=== PATIENT | male | born 1955 | race Caucasian/White ===

== ENCOUNTER → 2017-12-10 09:10 | Outpatient (REF) | payer MEDICARE, SELFPAY ==
[2017-12-10 18:53] LABS: Alanine Aminotransferase 24 U/L (12-78); Albumin Level 3.8 gm/dL (3.4-5.0); Albumin/Globulin Ratio 1.2 (1.1-1.8); Alkaline Phosphatase 108 U/L (46-116); Anion Gap 11.7 mEq/L (5-15); Bilirubin,Total 0.7 mg/dL (0.2-1.0); Blood Urea Nitrogen 14 mg/dL (7-18); Calcium 9.2 mg/dL (8.5-10.1); Carbon Dioxide 29 mmol/L (21.0-32.0); Chloride 103 mmol/L (98-107); Chol/HDL Ratio 2.4 (1-3.5); Cholesterol 193 mg/dL (140-200); Creatinine,Serum 1.02 mg/dL (0.70-1.30); Estimated Glomerular Filt Rate 74 ml/min (>60); GFR (African American) 89 ML/MIN (>60); Globulin 3.1 gm/dl (1.3-3.2); Glucose 118 mg/dL (74-106); HDL Cholesterol 82 mg/dL (27-67); LDL Cholesterol 93 mg/dL (0-130); Sodium 139 mmol/L (136-145); T4 (Thyroxine) 6.3 ug/dl (4.7-13.3); Thyroid Stimulating Hormone 3.56 uIU/ml (0.358-3.740); Total Protein,Serum 6.9 gm/dL (6.4-8.2); Triglycerides 92 mg/dL (30-200); VLDL Cholesterol 18 mg/dL (0-40)
[2017-12-10 18:57] LABS: Potassium 4.7 mmoL/L (3.5-5.1)
[2017-12-10 18:58] LABS: Aspartate Amino Transferase 23 U/L (15-37)
[2017-12-10 20:09] LABS: Basophils # 0.1 K/mm3 (0-0.2); Basophils % 0.8 % (0.1-2.0); Eosinophils % 0.7 % (0.1-12.0); Hematocrit 52.4 % (42.0-52.0); Hemoglobin 17.2 g/dL (14.1-18.0); Lymphocytes # 1.5 K/mm3 (0.7-4.5); Lymphocytes % 22.3 K/mm3 (10-50); Mean Corpuscular HGB Conc 32.8 g/dL (31.8-35.4); Mean Corpuscular Hemoglobin 33.8 pg (27.0-31.2); Mean Corpuscular Volume 103.2 fl (80-94); Mean Platelet Volume 9.6 fl (7.4-10.4); Monocytes # 0.5 K/mm3 (0.1-1.0); Monocytes % 7.9 % (1.7-9.3); Neutrophils # 4.6 K/mm3 (1.8-7.8); Neutrophils % 68.4 % (37.0-80.0); Platelet Count 239 K/mm3 (142-424); Red Blood Count 5.08 M/mm3 (4.60-6.20); White Blood Count 6.7 K/mm3 (4.8-10.8)
[2017-12-12 15:47] LABS: PSA, Free 0.66 ng/mL; Prostate Specific Ag 9.4 ng/mL (0.0-4.0)
== END ==
LOC: LAB 09:10
PROVIDERS: Visit Provider Physician Assistant
DX: I10 Essential (primary) hypertension (principal)
CPT/HCPCS: 80053; 80061; 84153; 84154; 84436; 84443; 85025

== ENCOUNTER → 2018-09-25 14:29 | Outpatient (CLI) | payer MEDICARE, SELFPAY ==
[2018-09-25 14:41] LABS: Basophils % 0.4 % (0.1-2.0); Eosinophils % 0.6 % (0.1-12.0); Hemoglobin 15.9 g/dL (14.1-18.0); Lymphocytes # 1.7 K/mm3 (0.7-4.5); Lymphocytes % 28.6 % (10-50); Mean Corpuscular HGB Conc 32.6 g/dL (31.8-35.4); Mean Corpuscular Volume 101.4 fl (80-94); Mean Platelet Volume 7.9 fl (7.4-10.4); Monocytes # 0.4 K/mm3 (0.1-1.0); Monocytes % 7.5 % (1.7-9.3); Neutrophils # 3.6 K/mm3 (1.8-7.8); Neutrophils % 62.9 % (37.0-80.0); Platelet Count 210 K/mm3 (142-424); Red Blood Count 4.83 M/mm3 (4.60-6.20); Red Cell Distribution Width 12.7 % (11.5-17.5); White Blood Count 5.8 K/mm3 (4.8-10.8)
[2018-09-25 14:56] LABS: Alanine Aminotransferase 25 U/L (12-78); Albumin/Globulin Ratio 1.3 (1.1-1.8); Alkaline Phosphatase 116 U/L (46-116); Anion Gap 13.3 mEq/L (5-15); Aspartate Amino Transferase 20 U/L (15-37); Bilirubin,Total 0.9 mg/dL (0.2-1.0); Blood Urea Nitrogen 9 mg/dL (7-18); Calcium 8.9 mg/dL (8.5-10.1); Carbon Dioxide 29 mmol/L (21.0-32.0); Chloride 103 mmol/L (98-107); Creatinine,Serum 0.84 mg/dL (0.70-1.30); Estimated Glomerular Filt Rate 92 ml/min (>60); Free T4 (Free Thyroxine) 0.89 ng/dl (0.76-1.46); GFR (African American) 111 ML/MIN (>60); Glucose 112 mg/dL (74-106); Potassium 4.3 mmoL/L (3.5-5.1); Sodium 141 mmol/L (136-145); Thyroid Stimulating Hormone 1.86 uIU/ml (0.358-3.740)
[2018-09-25 16:06] LABS: Erythrocyte Sedimentation Rate 3 mm/hr (0-20)
== END ==
PROVIDERS: Visit Provider Emergency Medicine
DX: E78.5 Hyperlipidemia, unspecified (principal); I25.10 Atherosclerotic heart disease of native coronary artery without angina pectoris
CPT/HCPCS: 80053; 84439; 84443; 85025; 85651

== ENCOUNTER → 2018-10-25 13:14 | Outpatient (CLI) | payer MEDICARE, SELFPAY ==
[2018-10-25 14:25] LABS: Amphetamine/Metha Screen,Urine Negative ng/mL (<1000); Barbiturates Screen,Urine Negative ng/mL (<200); Benzodiazepines Screen,Urine Negative ng/mL (<200); Cannabinoid Screen,Urine Negative ng/mL (<50); Cocaine Screen,Urine Negative ng/mL (<300); Methadone Screen,Urine Negative ng/mL (<300); Opiate Screen,Urine Positive ng/mL (<300); Phencyclidine Screen,Urine Negative ng/mL (<25)
== END ==
PROVIDERS: Visit Provider Emergency Medicine
DX: M54.5 Low back pain (principal)
CPT/HCPCS: 80305

== ENCOUNTER → 2020-01-13 10:47 | Outpatient (CLI) | payer MEDICARE, SELFPAY ==
--- NOTE | 2020-01-13 10:52 | XR_ITS ---
PROCEDURE: XR CHEST 2V CLINICAL HISTORY: Left chest mass COMPARISON: CXR1 CHEST-PORTABLE from 04/11/2013 FINDINGS: The cardiomediastinal silhouette and pulmonary vascularity are within normal limits. There is hyperinflation with attenuation of the peripheral pulmonary vessels consistent with COPD. There is blunting of the CP angles on both sides there is an 8 mm nodular opacity in the left infrahilar region, 9 mm nodular density in the retrocardiac region on the left, 5 mm nodular opacity in the left lower lung zone laterally, and a possible 6 mm nodule in the right perihilar region. No acute bony abnormalities. IMPRESSION: At least 4 left-sided indeterminate pulmonary nodules. Consider chest CT for further evaluation. Dictated by: Med Jackson MD 01/13/2020 11:13 Electronically signed by Med Jackson MD in [place] 01/13/2020 11:13
--- NOTE | 2020-01-13 10:52 | XR_ITS ---
PROCEDURE: XR CLAVICLE LT CLINICAL INDICATION: Left chest mass Mass on left clavicle COMPARISON: No exams were available for comparison FINDINGS: No fracture or dislocation. No lytic or blastic change. There is normal mineralization. There are mild osteoarthritic changes the acromioclavicular joint with minimal hypertrophy. Minimal osteoarthritis also noted at the glenohumeral joint with small subchondral cyst of the humeral head 7 mm. The medial aspect of the clavicle at the sternoclavicular joint is not well demonstrated on these images. Other findings:None. IMPRESSION: Mild osteoarthritic changes of the AC joint and glenohumeral joint. If there is indeed a palpable mass then, CT or MRI may provide further evaluation Dictated by: Med Jackson MD 01/13/2020 11:10 Electronically signed by Med Jackson MD in [place] 01/13/2020 11:10
== END ==
PROVIDERS: PCP Emergency Medicine; Visit Provider Physician Assistant
DX: R22.2 Localized swelling, mass and lump, trunk (principal)
CPT/HCPCS: 71046; 73000

== ENCOUNTER → 2020-01-22 09:24 | Outpatient (CLI) | payer MEDICARE, SELFPAY ==
--- NOTE | 2020-01-22 09:24 | CT_ITS ---
PROCEDURE: CT CHEST WO CON CLINICAL INDICATION: indeterminate pulm. nodules. Palpable mass clavicl Palpable mass of the left clavicle Painful left clavicular palpable mass, abnormal chest x-ray, pulmonary nodules COMPARISON: XR CHEST 2V from 01/13/2020 XR CLAVICLE LT from 01/13/2020 TECHNIQUE: Axial images obtained with sagittal and coronal reformats. All CT scans at the facility use one or more dose reduction, viz: automated exposure control, ma/kV adjustment per patient size (including targeted exams where dose is matched to indication, i.e. head), or iterative reconstruction technique. FINDINGS: HEART AND MEDIASTINAL STRUCTURES: No mediastinal or hilar mass or adenopathy. There are coronary artery calcifications. There is normal heart size and there is minimal thickening of the pericardium anteriorly. There is mild ectasia of the ascending aorta measuring up to 4.2 cm. The LUNGS AND PLEURAL SPACES: Centrilobular emphysema with COPD changes. There are multiple calcified granulomas. These correspond to the nodular densities noted on the radiograph. There is an 8 mm subpleural nodular opacity in the left lower lobe laterally. This is noncalcified. BONY STRUCTURES: A BB is placed in the area of palpable concern overlying the left clavicle medially. There is some prominence of the soft tissues at this area which may be due to pannus formation. No bony erosive or destructive changes evident. No bony mass. This has a somewhat similar appearance on both sides but is more prominent on the left. There are degenerative changes of the thoracic spine UPPER ABDOMEN: There is an infrarenal abdominal aortic aneurysm. This is incompletely imaged but measures up to 4.6 cm transverse. Incidental note also made of bilateral renal hypodensities which may be due to cyst and a 3 mm nonobstructing stone in the lower pole of the left kidney. The gallbladder wall is slightly thickened. There is a 9 mm hypodensity in the right hepatic lobe anteriorly which may be due to a hepatic cyst. ADDITIONAL FINDINGS: No other significant abnormalities. IMPRESSION: 1. Palpable abnormality over the medial aspect of the left clavicle corresponds to the head of the left clavicle as well as some suspected mild pannus formation. No bony destructive lesion or lytic process evident. 2. Mild dilatation of the ascending aorta at 4.2 cm with coronary artery calcifications noted. 3. Multiple calcified pulmonary nodules corresponding to the radiographic abnormalities along with a noncalcified 8 mm subpleural nodule in the left lower lobe. Recommend six-month follow-up. There is COPD/centrilobular emphysema. 4. 4.6 cm infrarenal abdominal aortic aneurysm incompletely image. Suggest CT angiogram of the abdominal aorta for further evaluation Dictated by: Med Jackson MD 01/23/2020 11:13 Electronically signed by Med Jackson MD in [place] 01/23/2020 11:13
== END ==
PROVIDERS: PCP Physician Assistant; Visit Provider Physician Assistant
DX: R91.8 Other nonspecific abnormal finding of lung field (principal)
CPT/HCPCS: 71250

== ENCOUNTER → 2020-02-06 08:07 | Outpatient (CLI) | payer MEDICARE, SELFPAY ==
--- NOTE | 2020-02-06 08:19 | CT_ITS ---
Procedure: CT ANGIO ABDOMEN CLINICAL HISTORY: 4.6cm AAA Abdominal aortic aneurysm evaluation COMPARISON: No exams were available for comparison TECHNIQUE: IV Contrast: 100ml Optiray 350 Axial images obtained with sagittal and coronal reformats. All CT scans at the facility use one or more dose reduction, viz: automated exposure control, ma/kV adjustment per patient size (including targeted exams where dose is matched to indication, i.e. head), or iterative reconstruction technique. FINDINGS: There is an infrarenal abdominal aortic aneurysm which begins immediately below the level of the renal arteries. This measures up to 4.6 cm in AP and transverse dimension with moderate amount of intramural thrombus. The KAIDEN is patent and is involved by the aneurysm. The aneurysm ends at the level of the bifurcation but does not involve the common iliac arteries. The celiac and superior mesenteric artery have an unremarkable appearance. There is a single renal artery to each kidney with no evidence of significant stenosis. Atherosclerotic changes involve the iliac vessels with 40-50 percent stenosis of the ostium of the right common iliac artery. There is occlusion of the left common iliac artery with reconstitution of the external and internal left iliac arteries distal to the common iliac bifurcation. Non angiographic findings: There is a 7 mm hypodense lesion in the right hepatic lobe anteriorly nonspecific. The gallbladder is contracted with suggestion of a stone. Gallbladder ultrasound may confirm. There is mild thickening of the gastric wall nonspecific. The prostate is enlarged at 5.3 cm IMPRESSION: 1. Fusiform 4.6 cm infrarenal abdominal aortic aneurysm as described above with intramural thrombus. The aneurysm begins immediately below the level renal arteries and extends to the aortic bifurcation 2. Occluded left common iliac artery 3. Contracted gallbladder with possible cholelithiasis which may be confirmed with ultrasound 4. Indeterminate 7 mm right hepatic lobe lesion. Follow-up may confirm stability 5. Enlarged prostate Dictated by: Med Jackson MD 02/07/2020 09:02 Electronically signed by Med Jackson MD in [place] 02/07/2020 09:02
[2020-02-06 08:41] LABS: Blood Urea Nitrogen 8 mg/dl (9-20); Estimated Glomerular Filt Rate 97 ml/min (>60); GFR (African American) 117 ML/MIN (>60)
== END ==
PROVIDERS: PCP Physician Assistant; Visit Provider Physician Assistant
DX: I71.4 Abdominal aortic aneurysm, without rupture (principal)
CPT/HCPCS: 36415; 74175; 82565; 84520; Q9967

== ENCOUNTER → 2020-02-11 09:54 | Outpatient (CLI) | payer MEDICARE, SELFPAY ==
--- NOTE | 2020-02-11 09:58 | XR_ITS ---
PROCEDURE: XR SHOULDER LT MIN 2V CLINICAL INDICATION: LEFT SHOULDER PAIN COMPARISON: No exams were available for comparison FINDINGS: Osteoarthritic changes are present at the acromioclavicular joint with minimal spurring along the undersurface of the acromion. There is mild superior location of the humeral head which may be seen with rotator cuff disease. A well-circumscribed cystic areas present in the humeral head at 5-6 mm. Mild osteoarthritic changes are present at the glenohumeral joint. IMPRESSION: Osteoarthritis of the acromioclavicular joint with mild subacromial stenosis and osteoarthritis of the glenohumeral joint Dictated by: Med Jackson MD 02/11/2020 16:00 Electronically signed by Med Jackson MD in [place] 02/11/2020 16:00
== END ==
PROVIDERS: PCP Emergency Medicine; Visit Provider Orthopaedic Surgery
DX: M25.512 Pain in left shoulder (principal)
CPT/HCPCS: 73030

== ENCOUNTER → 2020-03-25 14:25 | Outpatient (CLI) | payer MEDICARE, SELFPAY ==
--- NOTE | 2020-03-25 14:25 | US_ITS ---
PROCEDURE: US ABDOMEN LIMITED CLINICAL INDICATION: hepatic lesion/ abn gallbladder seen on MRI COMPARISON: No exams were available for comparison FINDINGS: PANCREAS: Unremarkable. No obvious mass or abnormal fluid collection. No ductal dilatation LIVER: There is a 9 mm cyst in the right hepatic lobe just underneath the liver surface which may correspond to the CT abnormality. RIGHT KIDNEY: 14 mm cyst upper pole right kidney There is fusiform abdominal aortic aneurysm measuring up to 4.4 cm in AP dimension with moderate amount of intramural thrombus. GALLBLADDER: Gallbladder is contracted with stones and mild wall thickening. No pericholecystic fluid or biliary dilatation. IMPRESSION: 1. Contracted gallbladder with stones and mildly thickened wall. 2. Liver lesion appears to correspond to a 9 mm simple appearing cyst 3. 4.4 cm fusiform abdominal aortic aneurysm with moderate amount of intramural thrombus Dictated by: Med Jackson MD 03/25/2020 15:48 Electronically signed by Med Jackson MD in [place] 03/25/2020 15:48
== END ==
PROVIDERS: PCP Emergency Medicine; Visit Provider Physician Assistant
DX: K76.9 Liver disease, unspecified (principal)
CPT/HCPCS: 76705

== ENCOUNTER → 2020-04-09 15:31 | Outpatient (CLI) | payer MEDICARE, SELFPAY ==
--- NOTE | 2020-04-09 15:32 | MR_ITS ---
PROCEDURE: MR SHOULDER LT WO CON CLINICAL INDICATION: evaluate for rotator cuff tear SHOULDER PAIN X3 WEEKS, PAIN RADIATES DOWN AM TO FINGERTIPS AND UP SIDE OF NECK, NO INJURY. INTERMITTENT NUMBNESS IN fingers PAIN RAISING ARM ABOVE HEAD COMPARISON: XR SHOULDER LT MIN 2V from 02/11/2020 TECHNIQUE: Routine multiplanar multi echo sequences are performed without gadolinium enhancement. FINDINGS: There is subacromial stenosis with the subacromial space measuring approximately 5 mm. Hypertrophic changes are present at the acromioclavicular joint with some mild impingement upon the supraspinatus tendon. There is some mild thickening with increased T2 signal along the undersurface of the supraspinatus tendon consistent with tendinopathy/tendinosis and possible partial tear. A full-thickness or complete tear is not identified. Subarticular cystic changes are present involving the distal and inferior aspect of the clavicle. There are mild osteoarthritic changes of the glenohumeral joint with mild superior location of the humeral head. No obvious labral tear. Bicipital tendon is in place. IMPRESSION: Acromioclavicular arthropathy with low-lying acromion with some subacromial stenosis and possible impingement upon the supraspinatus tendon with tendinopathy/tendinosis of the supraspinatus distally and possible partial tear along the undersurface. Osteoarthritic changes of the AC joint and glenohumeral joint. Dictated by: Med Jackson MD 04/10/2020 11:47 Electronically signed by Med Jackson MD in [place] 04/10/2020 11:47
== END ==
PROVIDERS: PCP Physician Assistant; Visit Provider Orthopaedic Surgery
DX: M25.512 Pain in left shoulder (principal)
CPT/HCPCS: 73221

== ENCOUNTER → 2020-04-20 12:22 | Outpatient (CLI) | payer MEDICARE, SELFPAY ==
--- NOTE | 2020-04-20 | CA_ITS ---
APPROVED REPORT Exam: Pharmacologic Technologist: Fatimah Mosqueda Ht: 6 ft 0 in Wt: 150 lbs BSA: 1.88 m2 HR: 56 bpm BP: 150/ mmHg Indications: CAD, HTN Medical History Medications: Lisinopril,,,,, Hydrocodone,,,,, Atorvastatin,,,,, HCTZ,,,,, CloPIdogrel,,,,, BisOPROLOL,,,,, DOxazosin,,,,, Stress Test Details Test: LEXISCAN HR Resting HR: 56 bpm Max Heart Rate (APMHR): 154 bpm Max HR Achieved: 82 bpm Target HR (85% APMHR): 130 bpm % of APMHR: 53 Recovery HR: 63 bpm BP Resting BP: 150.0/84.0 mmHg Max BP: 151.0/93.0 mmHg Recovery BP: 129.0/82.0 mmHg ECG Clinical Exercise duration: 04:01 min Highest Stage Achieved: Stress ECG Conclusion Resting ECG: Sinus bradycardia, frequent PVCs in bigeminal pattern, old anterior ID, right axis deviation. Symptoms: Shortness of air, malaise. No chest pain. Arrhythmias/Ectopy: Periods of ventricular bigeminy ST-T Changes: No significant changes. Conclusion: Unremarkable Lexiscan stress. Myoview images reported separately. Electronically signed by : Moreno Youssef, 04/20/2020 18:25:48
--- NOTE | 2020-04-20 12:27 | NM_ITS ---
APPROVED REPORT Exam: Nuclear Stress Test Indication: CAD, H/O SD, HTN, HYPERLIPIDEMIA, TOB USE Patient Location: Outpatient Stress Tech: Fatimah Mosqueda [facility] Tech:Lorna Galicia, ARRT, RT (R)(N) Ht: 6 ft 0 in Wt: 150 lbs HR: 56 bpm BP: 150/84 mmHg BSA: 1.88 m2 History: CAD, H/O SD, HTN, HYPERLIPIDEMIA, TOB USE Procedure: Patient received a 0.4 mg of intravenous Lexiscan, resting heart rate 56 bpm, resting blood pressure 150/84 mmHg, with Lexiscan maximum heart rate achived was 79 bpm which is Less than 85 % of the maximum predicted heart rate and blood pressure was 157/93 mmHg. With Lexiscan, patient denied any complaint of chest pain. Electrocardiogram Resting electrocardiogram showed sinus bradycardia, with Lexiscan there is less than 1.[address] segment depression noted from the baseline EKG. The EKG portion of the Lexiscan Myoview is nondiagnostic. Cardiac Stress and Resting SPECT Images: Cardiac Stress and Resting SPECT images were obtained using technetium 99m Myoview 32.8 mCi stress and 10.15 mCi at rest. Gated SPECT for the analysis of segmental wall motion and calculation of the ejection fraction also done. Cardiac stress and resting SPECT images show a moderate size area of fixed defect involving the inferior ,inferior basal and inferior apical wall in a fixed pattern consistent with area of myocardial scarring with minimal petey-infarct ischemia. Computer derived ejection fraction is 34% with moderate inferior, inferior basal and inferior apical wall hypokinesis. Right ventricle is mildly enlarged with normal contractility. Conclusion: 1. The EKG portion of the Lexiscan Myoview is nondiagnostic. 2. Scintigraphic evidence of myocardial scarring involving the inferior, inferior basal and inferior apical wall without significant petey-infarct ischemia. Computer derived ejection fraction is 34% with segmental wall motion abnormalities described above, right ventricle is mildly enlarged with normal contractility. 3. Abnormal Lexiscan Myoview study. Electronically signed by : Moreno Youssef, 04/20/2020 18:29:37
--- NOTE | 2020-04-20 12:34 | CA_ITS ---
APPROVED REPORT EXAM: Comprehensive 2D, Doppler, and color-flow Echocardiogram Associate Professor Computer Science: Jennifer Guerra RVT Ht: 6 ft 0 in Wt: 144lbs BSA: 1.85 BP: 128/86 mmHg Indications: CAD,STENT,HX TIA,SMOKER,HTN,HLD 2D Dimensions LVOT 2.08 cm (M/F) 1.5-2.5 M-Mode Dimensions RVDd 1.61 cm (0.9-2.6) LVDd 5.45 cm (3.5-5.7) LVDs 4.10 cm (3.5-5.7) IVSd 1.22 cm (0.6-1.1) PWd 0.97 cm (0.6-1.1) EF (Teich) 48.60% FS 24.80% EDV (Teich) 144.40 mL ESV (Teich) 74.20 mL LV Diastology E/A Ratio 0.57 Mitral Valve MV A Velocity 81.00 (40-130 cm/s) Left Ventricle Left atrium is mildly enlarged, left ventricle is normal size, mild concentric left ventricular hypertrophy, visually estimated ejection fraction 45%, there is moderate hypokinesis involving the basal septum, inferior basal, inferior and posterior lateral wall. Grade 1 diastolic dysfunction seen without tissue Doppler evidence of raise left atrial pressure. Right Ventricle Right atrium and right ventricular normal size and contractility. Aortic Valve Aortic valve is minimally thickened and calcified leaflet chordae display good mobility, there is no aortic stenosis or aortic insufficiency. Mitral Valve Mitral valve is grossly normal, there is mild to moderate mitral regurgitation. Tricuspid Valve Tricuspid valve is grossly normal, there is mild tricuspid regurgitation, tricuspid regurgitation jet velocity is inadequate for calculation of the right ventricular systolic pressure. Pulmonic Valve Pulmonic valve is poorly visualized. Great Vessels Aortic root is normal size. Pericardium No significant pericardial effusion noted. Conclusion 1. Enlarged left atrium, normal left ventricular size, mild concentric left ventricular hypertrophy, visually estimated ejection fraction 45% with segmental wall motion abnormality described above, grade 1 diastolic dysfunction seen without tissue Doppler evidence of raise left atrial pressure. 2. Mild to moderate mitral and mild tricuspid regurgitation. 3. No significant pericardial effusion noted. Electronically signed by : Moreno Youssef, 04/20/2020 16:37:19
--- NOTE | 2020-04-20 12:40 | HMH.ITSHM ---
Current Home Medications as stated by this patient Drew Aiken or health and safety representative. []NITRO LISINOPRIL HYDROCODONE DOXAZOSIN CLOPIDOGREL BISOPROLOL ATORVASTATIN
== END ==
PROVIDERS: PCP Physician Assistant; Visit Provider Urology
DX: E78.5 Hyperlipidemia, unspecified (principal); I10 Essential (primary) hypertension; I25.10 Atherosclerotic heart disease of native coronary artery without angina pectoris; R94.31 Abnormal electrocardiogram [ECG] [EKG]; Z01.810 Encounter for preprocedural cardiovascular examination; Z72.0 Tobacco use
CPT/HCPCS: 78452; 93017; 93306; A9502; J2785

== ENCOUNTER 2020-05-11 07:35 | Day surgery (SDC) | payer MEDICARE, SELFPAY ==
[2020-05-11] VITALS (12 sets, daily range): BP systolic 104–147; BP diastolic 50–97; PULSE 50–65; RESP 16–20; TEMP 36.6; O2SAT 90–98; BMI 19.3
--- NOTE | 2020-05-11 | IR_ITS ---
APPROVED REPORT Patient Location: Outpatient Commercial Lines Manager: OMER Smith RT (R) PROCEDURES Left heart catheterization Left ventriculogram Selective coronary angiogram Intravascular ultrasound to the ostial left main artery INDICATION Coronary artery disease, Angina pectoris, Preoperative evaluation, Abnormal Myoview Informed consent was obtained prior to the procedure. COMPLICATIONS none Estimated Blood Loss: less than 10 mls TECHNIQUE One percent lidocaine used to anesthetize the right anterior aspect of the wrist. The right radial artery was accessed via the Seldinger technique. A 6 Togolese sheath was placed in the right radial artery. 2.5 mg of verapamil, 800 mcg of nitroglycerin, 1mg Lidocaine and 5000 U Heparin were given through the arterial sheath. The trap catheter was also used to perform left heart catheterization, left ventriculogram and selective coronary angiogram. At the end the diagnostic angiogram therapeutic heparin was administered and a 6 Togolese JL4 guide catheter was placed in the left coronary cusp. A BMW wire was placed distally in the LAD and an intravascular ultrasound probe was advanced. Interrogation of the left main artery demonstrated the MLA was in excess of 10 mm???. Because this represented an significant left main disease the apparatus was removed the sheath was removed and hemostasis was achieved using TR banding patient was transferred to the postop holding her in stable condition ANGIOGRAPHIC RESULTS The left main artery Has an angiographically indeterminate lesion which proved to be 20% stenosis in severity The left anterior descending artery Is proximally normal followed by mid vessel 30 to 40% stenosis followed by additional mid vessel 10 to 20% stenoses The circumflex artery Is nondominant with a mid vessel 20 to 30% stenosis along a tortuous bend The right coronary artery Is a dominant vessel and has proximal 30% stenoses mid vessel 30 to 40% long stenoses. The WILSON ventriculogram reveals Normal 65% The left ventricular end-diastolic pressure 10 mmHg IMPRESSION Angiographically indeterminate left main artery disease which proves to be only mild in severity by MANJIT Normal ejection fraction Normal left ventricular end-diastolic pressure Mild to moderate [id number] coronary disease as described above PLAN 1. Patient is alone acceptable risk to proceed with surgery 2. Aggressive risk factor modification Electronically signed by : Damaso Davidson, 05/11/2020 14:07:02
[2020-05-11 08:34] LABS: Basophils % 0.6 % (0.1-2.0); Eosinophils # 0.1 K/mm3 (0.0-0.4); Eosinophils % 2.1 % (0.1-12.0); Hematocrit 45.6 % (42.0-52.0); Hemoglobin 15.7 g/dL (14.1-18.0); Lymphocytes # 1.5 K/mm3 (0.7-4.5); Mean Corpuscular HGB Conc 34.4 g/dL (31.8-35.4); Mean Corpuscular Hemoglobin 34.7 pg (27.0-31.2); Mean Platelet Volume 8.3 fl (7.4-10.4); Monocytes # 0.4 K/mm3 (0.1-1.0); Monocytes % 7.6 % (1.7-9.3); Neutrophils # 3.3 K/mm3 (1.8-7.8); Neutrophils % 61.6 % (37.0-80.0); Platelet Count 192 K/mm3 (142-424); Red Blood Count 4.52 M/mm3 (4.60-6.20); Red Cell Distribution Width 12.8 % (11.5-17.5); White Blood Count 5.3 K/mm3 (4.8-10.8)
[2020-05-11 08:37] LABS: Chloride 105 mmol/L (98-107); Sodium 140 mmol/L (136-145)
[2020-05-11 08:40] LABS: Blood Urea Nitrogen 8 mg/dl (9-20); Creatinine Clearance Estimated 66 mL/min (50-200); Estimated Glomerular Filt Rate 96 ml/min (>60); GFR (African American) 117 ML/MIN (>60)
[2020-05-11 08:41] LABS: Calcium 9.2 mg/dl (8.4-10.2); Carbon Dioxide 30 mmol/L (22.0-30.0); Glucose 99 mg/dl (74-100)
[2020-05-11 09:03] LABS: Coronavirus 19 IgG Antibody Negative (Negative); Coronavirus 19 IgM Antibody Negative (Negative)
== END 2020-05-11 13:24 | disposition home or self-care (01) ==
LOC: CATHLAB 07:36
PROVIDERS: PCP Physician Assistant; Visit Provider Internal Medicine
DX: I25.118 Atherosclerotic heart disease of native coronary artery with other forms of angina pectoris (principal); I42.9 Cardiomyopathy, unspecified; I10 Essential (primary) hypertension; Z72.0 Tobacco use; R94.31 Abnormal electrocardiogram [ECG] [EKG]; Z88.8 Allergy status to other drugs, medicaments and biological substances; Z79.02 Long term (current) use of antithrombotics/antiplatelets; Z79.82 Long term (current) use of aspirin; Z79.899 Other long term (current) drug therapy
CPT/HCPCS: 80048; 85025; 86328; 92978; 93458; 99152; C1725; C1769; J1644; Q9967

== ENCOUNTER → 2020-07-14 07:45 | Outpatient (CLI) | payer MEDICARE, SELFPAY ==
[2020-07-14 08:02] LABS: Basophils % 0.6 % (0.1-2.0); Eosinophils # 0.1 K/mm3 (0.0-0.4); Eosinophils % 2.4 % (0.1-12.0); Hematocrit 46.4 % (42.0-52.0); Hemoglobin 15.3 g/dL (14.1-18.0); Lymphocytes # 1.8 K/mm3 (0.7-4.5); Mean Corpuscular Hemoglobin 34.1 pg (27.0-31.2); Mean Corpuscular Volume 103.3 fl (80-94); Mean Platelet Volume 8.1 fl (7.4-10.4); Monocytes # 0.5 K/mm3 (0.1-1.0); Neutrophils # 3.4 K/mm3 (1.8-7.8); Neutrophils % 57.9 % (37.0-80.0); Platelet Count 194 K/mm3 (142-424); Red Blood Count 4.49 M/mm3 (4.60-6.20); Red Cell Distribution Width 13.5 % (11.5-17.5); White Blood Count 5.9 K/mm3 (4.8-10.8)
[2020-07-14 08:58] LABS: Chloride 102 mmol/L (98-107); Potassium 4.1 mmoL/L (3.5-5.1); Sodium 139 mmol/L (136-145)
[2020-07-14 09:01] LABS: Alanine Aminotransferase 22 U/L (12-78); Albumin Level 3.8 g/dl (3.5-5.0); Albumin/Globulin Ratio 1.7 (1.1-1.8); Alkaline Phosphatase 92 U/L (38-126); Anion Gap 8.1 mEq/L (5-15); Aspartate Amino Transferase 27 U/L (17-59); Bilirubin,Total 0.5 mg/dl (0.2-1.3); Blood Urea Nitrogen 10 mg/dl (9-20); Carbon Dioxide 33 mmol/L (22.0-30.0); Estimated Glomerular Filt Rate 96 ml/min (>60); GFR (African American) 117 ML/MIN (>60); Globulin 2.2 g/dL (1.3-3.2)
[2020-07-14 09:02] LABS: Calcium 9.2 mg/dl (8.4-10.2); Glucose 90 mg/dl (74-100)
[2020-07-14 11:17] LABS: Coronavirus 19 IgG Antibody Negative (Negative); Coronavirus 19 IgM Antibody Negative (Negative)
== END ==
PROVIDERS: Visit Provider Surgery
DX: K80.20 Calculus of gallbladder without cholecystitis without obstruction (principal); Z01.818 Encounter for other preprocedural examination
CPT/HCPCS: 36415; 80053; 85025; 86328

== ENCOUNTER 2020-07-16 09:11 | Day surgery (SDC) | payer MEDICARE, SELFPAY ==
--- NOTE | 2020-07-12 08:32 | SUR.PREOP ---
Spoke to patient on phone. Pt asking for estimated time for surgical procedure. Explained to the pt that about 4-5 hours were needed from surgery time to discharge but could change at any time. Pt explained that he had scheduled transportation. It was verbalized to the patient that a responsible adult must be present at the time of surgery and at discharge.
[2020-07-13 13:01] VITALS: BMI 19.6
[2020-07-16] VITALS (13 sets, daily range): BP systolic 98–138; BP diastolic 63–80; PULSE 56–74; RESP 15–27; TEMP 36.3–43; O2SAT 88–95
--- NOTE | 2020-07-16 10:49 | HMH.ANESCL ---
[facility] Anesthesia Checklist - Patient Identification Patient Identification: Arm Band, Verbal (Name & ) - Structural Data Admitted From: Home Planned Operative Procedure/s: lap choly Consent for Planned Operative Procedure(s) Verified: Yes Verified Documents: History and Physical - NPO Status Verified Time NPO: 00:00 - Chart Verification Results Verified: CBC, BMP - Additional verifications Patient : No Anesthesia Reactions: No Hx Blood Transfusions: No Blood Transfusion Reaction: No Cephalosporin Allergy: No Previous Colonoscopy: Yes - Cardiovascular Assessment Heart Sounds: S1 & S2 Pulse Strength: Baseline Pulse Rhythm: Regular Peripheral Edema: No - Airway Assessment C-Spine Mobility Assessed: Yes TMJ Mobility Assessed: Yes Dentition: Edentulous - Neurological Assessment Level of Consciousness: Awake, Alert, Appropriate Hx Seizures: No Numbness or tingling in extremities: No - Anesthesia Plan Anesthesia Risk discussed: Yes Anesthesia Plan: Verified ASA Class: III Anesthesia Type: General [facility] History I have reviewed the patient's past medical history: Yes Medical History: Reports:: Congestive Heart Failure, Coronary Artery Disease, Gall Bladder Disease, Hyperlipidemia, Hypertension, Transient Ischemic Attacks (TIA) Denies:: Cancer, Diabetes Mellitus Type 1, Diabetes Mellitus Type 2, Internal Pacemaker, MRSA, Seizures *Have you ever received a pneumonia vaccine?: No *Have you received a flu vaccine this season?: No Other Medical History: Reports: Arthritis, Liver Disease. Denies: Blood Transfusion Reaction Anesthesia experience/problems:: none Laterality Cases: Left: Other Other Surgeries: Yes: Cardiac Catheterization, Colonoscopy, Coronary Stent. No: Pacemaker Amputation: No Fractures: No - *Social History Last grade of school completed: High school graduate Smoking Status: Current every day smoker Tobacco Type: cigarettes # Packs/Day (cigarettes): 1 Alcohol Intake: never Alcohol Intake Frequency:: a few times a month Substance Use Type: denies use *Occupational Status:: retired Housing: house Household Members: spouse *Travel in the last 8 weeks: None Family Hx:: Cancer, Stroke
--- NOTE | 2020-07-16 12:53 | HMH.OPNOTE ---
Date of procedure: 07/16/20 Pre-op Diagnosis:: Chronic calculus cholecystitis Post-op Diagnosis:: Same Procedure performed:: Laparoscopic cholecystectomy Surgeon:: Terrell Lund MD TIE IN HAND:: Galen Anderson Anesthesia: GETA Estimated blood loss (mL): 25 Operative findings:: Severe pericholecystic fat stranding Dense adhesions between gallbladder and stomach (stomach and gallbladder essentially fused along a portion of mid gallbladder and mid stomach) Dome down approach with Endoloops utilized secondary to severe inflammatory changes and infundibular thickening Operative note:: After informed consent was obtained, the patient was taken to the operating room and placed in the supine position. General anesthesia was induced and the abdomen was prepped and draped in a sterile fashion. After infiltration with local anesthetic an infraumbilical incision was made. A Veress needle was placed in position. The abdomen was insufflated. A 5 mm optical trocar was placed in position. Under direct visualization, a 12 mm trocar was placed in the subxiphoid position and 2 additional 5 mm trocars were placed in the right upper quadrant. Dense adhesions over the dome of the gallbladder were immediately apparent. Careful dissection revealed a small portion of the gallbladder dome. The gallbladder was elevated as dissection along the margin of the gallbladder continued both medially and laterally. The dissection was very difficult and the adhesions were exceptionally dense. As dissection continued along the midportion of the gallbladder it became apparent that the stomach and gallbladder were densely adhered to one another with a small portion that had the equivalent of serosal fusion. No obvious injury to the stomach was noted. Dissection in around this region was very difficult and was completed with a combination of blunt dissection, sharp dissection, and harmonic loren. The dome of the gallbladder was angulated and adhered to the hepatic margin (right lateral). Harmonic loren were utilized to free this tissue to allow elevation of the dome. Once the dome of the gallbladder was elevated the overall appearance was more anatomic . The tissue around the cystic duct was carefully dissected. The cystic artery was also freed from surrounding tissue bluntly. 2 clips were placed along the artery and it was then transected distally with harmonic loren. A window was made between the liver and gallbladder deep to the infundibulum. Harmonic loren were then utilized to separate the gallbladder from the liver margin. Endoloops (x3) were then placed along the cystic duct/infundibulum. The gallbladder was transected at the infundibulum utilizing harmonic loren. It was then placed in a retrieval bag and removed through the subxiphoid trocar site. The right upper quadrant was thoroughly irrigated. No active bleeding or bile leak was noted. Fascia at the subxiphoid trocar site was reapproximated utilizing 0 Ethibond. The remaining trocars were removed. All wounds were irrigated and skin was closed with 4-0 Monocryl in a subcuticular fashion. Steri-Strips were applied. The patient's anesthetic agents were reversed and extubation was completed prior to transfer to recovery in stable condition. Condition: stable Disposition: PACU Specimens:: Gallbladder Complications:: No immediate
--- NOTE | 2020-07-16 13:01 | HMH.ANESI ---
[facility] Anesthesia Record Part I Intake, IV Amount: 900 Estimated blood loss (mL): 10 Urine output (mL): 0 Blood Products used (#): none Blood Pressure: 118/80 SaO2: 94 Pulse Rate: 57 Respiratory Rate: 18 Temperature: 98.2 F Patient is:: Drowsy, Nasal O2, Stable Stable to PACU at:: 12:59
--- NOTE | 2020-07-16 13:32 | HMH.ANESII ---
[facility] Anesthesia Record Part II Discharge Time: 13:29 Destination: Surgical Day Care (OP Surgery) PACU nurse assessment reviewed?: Yes Patient Condition:: Good Anesthesia Complications:: None Swallowing reflex intact?: Yes Cyanosis?: No Blood Pressure: 101/71 Pulse Rate: 58 Temperature: 97.3 F Mental Status: Alert & Oriented Pain level:: 4 Nausea and/or vomitting:: None Intake, IV Amount: 25
--- NOTE | 2020-07-16 15:11 | SUR.PHASEI ---
Patient was coached and encouraged to deep breathe and cough by Aliya Tolentino RN and Paulina Marcus RN from the time he became responsive enough to follow commands. Could barely hear air moving when auscultating bilateral anterior lungs. Patient unable to produce effective cough. At 1315 call made to Kobi Anderson CRNA asking for breathing treatment for patient. Kobi okayed order, verbal order repeated back and entered into computer for duo-neb breathing treatment at 1319. Annemarie from [facility] came to PACU, patient received breathing treatment. When treatment finished patient's O2 saturation was 98% on 4L, within a couple of minutes patient's O2 saturation was decreased to 92% on 4L. All of this reported to Andrés Gandhi RN in post op.
== END 2020-07-16 14:25 | disposition home or self-care (01) ==
LOC: OR 09:12
PROVIDERS: PCP Family Medicine; Visit Provider Surgery
PROC: 0FT44ZZ Resection of Gallbladder, Percutaneous Endoscopic Approach (ICD-10-PCS; CPT 47562; principal; 2020-07-16 10:45)
DX: K80.10 Calculus of gallbladder with chronic cholecystitis without obstruction (principal); K82.8 Other specified diseases of gallbladder; I11.0 Hypertensive heart disease with heart failure; I50.9 Heart failure, unspecified; I25.10 Atherosclerotic heart disease of native coronary artery without angina pectoris; E78.5 Hyperlipidemia, unspecified; Z86.73 Personal history of transient ischemic attack (TIA), and cerebral infarction without residual deficits; M19.90 Unspecified osteoarthritis, unspecified site; K76.9 Liver disease, unspecified; Z72.0 Tobacco use
CPT/HCPCS: 47562; 88304; 96374; J2405; J2710

== ENCOUNTER → 2020-08-31 13:45 | Outpatient (CLI) | payer MEDICARE, SELFPAY ==
--- NOTE | 2020-08-31 13:45 | CT_ITS ---
PROCEDURE: CT CHEST WO CON CLINICAL INDICATION: pulmonary nodule COMPARISON: CT CT CHEST WO CON from 01/22/2020 TECHNIQUE: Axial images obtained with sagittal and coronal reformats. All CT scans at the facility use one or more dose reduction, viz: automated exposure control, ma/kV adjustment per patient size (including targeted exams where dose is matched to indication, i.e. head), or iterative reconstruction technique. FINDINGS: Mild asymmetric prominence once again noted involving the left sternoclavicular joint. The pannus formation previously noted peers somewhat improved however. No bony erosive change evident. No mediastinal or hilar mass or adenopathy. Coronary artery calcifications are present. COPD with centrilobular emphysema and evidence of old granulomatous disease. Multiple calcified granulomas are present. There is mild diffuse bronchial thickening. The subpleural opacity in the left lower lobe measuring approximately 8 mm is once again noted and is not significantly changed. There is however a new irregular parenchymal nodular opacity in the left upper lobe. This measures 10 x 8 mm. This is contiguous with the pleura. The margins are somewhat stellate. This could be inflammatory/infectious or neoplastic. This is not readily amenable to percutaneous biopsy and likely to peripheral for bronchoscopy evaluation. Suggest PET-CT for further evaluation. There are degenerative changes in the thoracic spine. Upper abdominal images once again demonstrates a infrarenal abdominal aortic aneurysm which is incompletely imaged but measures at least 4.5 cm in AP dimension. Nonobstructing stone is present in the lower pole of the left kidney. 1 cm cyst involves the right lobe of the liver. IMPRESSION: 1. New 10 x 8 mm slightly spiculated nodule in the left upper lobe indeterminate. Not readily accessible for percutaneous or bronchoscopy biopsy. This could be related to an area of inflammation/infection or neoplasm. PET CT may provide further evaluation. 2. No change in the subpleural nodular opacity in the left lower lobe. 3. COPD with centrilobular emphysema. 4. Other nonacute findings as described above including infrarenal abdominal aortic aneurysm and coronary artery calcification. Dictated by: Med Jackson MD 09/01/2020 11:08 Med Jackson MD in [facility] 09/01/2020 11:08
== END ==
PROVIDERS: PCP Family Medicine; Visit Provider Family Medicine
DX: R91.1 Solitary pulmonary nodule (principal)
CPT/HCPCS: 71250

== ENCOUNTER → 2020-10-29 09:45 | Outpatient (CLI) | payer MEDICARE, SELFPAY ==
--- NOTE | 2020-10-29 09:59 | CT_ITS ---
Procedure: CT ANGIO ABDOMEN CLINICAL HISTORY: f/u AAA Follow-up aortic aneurysm COMPARISON: CT CT ANGIO ABDOMEN from 02/06/2020 TECHNIQUE: IV Contrast: 100ml Isovue 370 Axial images obtained with sagittal and coronal reformats. All CT scans at the facility use one or more dose reduction, viz: automated exposure control, ma/kV adjustment per patient size (including targeted exams where dose is matched to indication, i.e. head), or iterative reconstruction technique. FINDINGS: There is an infrarenal abdominal aortic aneurysm fusiform in nature measuring up to 5.1 cm transverse and 4.9 cm AP. This is increased in size previously measuring 4.6 x 4.6 cm. The aneurysm begins immediately below the level of the left renal artery and ends at the aortic bifurcation. There is a moderate amount mural thrombus. There is occlusion of the left common iliac artery. There is reconstitution of a small left external iliac artery with high-grade stenosis of the mid aspect of the left external iliac artery. The SMA and celiac arteries are unremarkable. The KAIDEN is patent. The prostate is enlarged and incompletely imaged measuring at least 5 cm. There is mild thickening of the urinary bladder wall. No change in the hypodensity in the right hepatic lobe at 9 mm The bowel gas pattern is nonspecific. There is a mild amount of retained colonic feces IMPRESSION: 1. Fusiform infrarenal abdominal aortic aneurysm which is slightly larger now measuring 5.1 x 4.9 cm previously 4.6 x 4.6 cm. 2. Occlusion of the left common iliac artery with reconstitution of the small left external iliac artery with high-grade stenosis in its mid aspect suspected 3. Other nonacute findings as described above low Dictated by: Med Jackson MD 10/29/2020 23:19 Med Jackson MD in [facility] 10/29/2020 23:19
[2020-10-29 10:11] LABS: Blood Urea Nitrogen 7 mg/dl (9-20); Estimated Glomerular Filt Rate 96 ml/min (>60); GFR (African American) 117 ML/MIN (>60)
== END ==
LOC: RAD 09:45
PROVIDERS: PCP Family Medicine; Visit Provider Family Medicine
DX: I71.4 Abdominal aortic aneurysm, without rupture (principal)
CPT/HCPCS: 36415; 74175; 82565; 84520; Q9967

== ENCOUNTER → 2020-11-30 14:17 | Outpatient (CLI) | payer MEDICARE, SELFPAY ==
[2020-11-30 14:31] LABS: Alanine Aminotransferase 19 U/L (12-78); Albumin Level 3.8 g/dl (3.5-5.0); Albumin/Globulin Ratio 1.5 (1.1-1.8); Alkaline Phosphatase 100 U/L (38-126); Anion Gap 10.1 mEq/L (5-15); Aspartate Amino Transferase 31 U/L (17-59); Bilirubin,Total 0.5 mg/dl (0.2-1.3); Blood Urea Nitrogen 8 mg/dl (9-20); Carbon Dioxide 28 mmol/L (22.0-30.0); Chloride 104 mmol/L (98-107); Chol/HDL Ratio 1.8 (1-3.5); Cholesterol 150 mg/dl (140-200); Estimated Glomerular Filt Rate 96 ml/min (>60); GFR (African American) 117 ML/MIN (>60); Globulin 2.6 g/dL (1.3-3.2); Glucose 103 mg/dl (74-100); HDL Cholesterol 82 mg/dl (40-60); Potassium 4.1 mmoL/L (3.5-5.1); Sodium 138 mmol/L (136-145); Total Protein,Serum 6.4 g/dl (6.3-8.2); Triglycerides 83 mg/dl (30-150); VLDL Cholesterol 17 mg/dL (0-40)
[2020-11-30 14:42] LABS: Direct LDL Cholesterol 46.03 mg/dL (100-129)
[2020-11-30 14:49] LABS: T4 (Thyroxine) 6.7 ug/dl (5.53-11.0)
[2020-11-30 14:50] LABS: Basophils % 0.7 % (0.1-2.0); Eosinophils # 0.1 K/mm3 (0.0-0.4); Eosinophils % 2.2 % (0.1-12.0); Hemoglobin 14.7 g/dL (14.1-18.0); Lymphocytes % 33.6 % (10-50); Mean Corpuscular HGB Conc 32.5 g/dL (31.8-35.4); Mean Corpuscular Hemoglobin 33.6 pg (27.0-31.2); Mean Corpuscular Volume 103.2 fl (80-94); Mean Platelet Volume 8.5 fl (7.4-10.4); Monocytes # 0.5 K/mm3 (0.1-1.0); Monocytes % 8.5 % (1.7-9.3); Neutrophils # 3.3 K/mm3 (1.8-7.8); Platelet Count 182 K/mm3 (142-424); Red Blood Count 4.36 M/mm3 (4.60-6.20); Red Cell Distribution Width 13.4 % (11.5-17.5)
[2020-11-30 15:02] LABS: Prostate Specific Ag Screen 10.6 ng/ml (0.0-4.0); Thyroid Stimulating Hormone 2.71 uIU/mL (0.465-4.68)
== END ==
LOC: LAB.DROPOF 14:18
PROVIDERS: Visit Provider Family Medicine
DX: Z12.5 Encounter for screening for malignant neoplasm of prostate (principal); E78.5 Hyperlipidemia, unspecified; I10 Essential (primary) hypertension; R06.00 Dyspnea, unspecified; I71.4 Abdominal aortic aneurysm, without rupture
CPT/HCPCS: 80053; 80061; 84436; 84443; 85025; G0103

== ENCOUNTER → 2021-01-10 08:29 | Outpatient (CLI) | payer MEDICARE, SELFPAY | PROVIDERS: PCP Family Medicine; Visit Provider Family Medicine | DX: Z20.822 Contact with and (suspected) exposure to COVID-19 (principal) | CPT/HCPCS: U0003 ==

== ENCOUNTER → 2021-07-18 09:50 | Outpatient (CLI) | payer MEDICARE, SELFPAY ==
--- NOTE | 2021-07-18 09:51 | CA_ITS ---
APPROVED REPORT EXAM: Comprehensive 2D, Doppler, and color-flow Echocardiogram Manufacturing Quality Manager: Jennifer Guerra RVT Ht: 6 ft 0 in Wt: 141lbs BSA: 1.84 BP: 136/82 mmHg Indications: STEVENS,CAD,CHF,HTN,HLD,SMOKER,HX AAA REPAIR 2D Dimensions LVOT 2.18 cm (M/F) 1.5-2.5 LA Volume 30.20 mL LA Volume Index 16.50 mL/m2 (M/F) 16-34 M-Mode Dimensions RVDd 2.36 cm (0.9-2.6) LA Diam 2.27 cm (1.9-4.0) LVDd 4.86 cm (3.5-5.7) Ao Diam 3.62 cm (2.0-3.7) LVDs 3.88 cm (3.5-5.7) IVSd 0.84 cm (0.6-1.1) PWd 1.06 cm (0.6-1.1) EF (Teich) 41.20% FS 20.20% EDV (Teich) 110.70 mL TAPSE 1.86 (<1.7) ESV (Teich) 65.10 mL LV Diastology E Decel Time 353.00 (160-240 msec) E/A Ratio 0.7 MED E' 7.80 (< 7 cm/sec) E'/MED E' Ratio 5.71 (>14) LAT E' 8.90 (<10 cm/sec) E/LAT E' Ratio 5.00 (>14) Aortic Valve AO Peak GR. 3.30 mmHg Mitral Valve MV E Max Rio. 44.00 (40-130 cm/s) MV A Velocity 67.00 (40-130 cm/s) E/A Ratio 0.66 MV Decel. Time 353.00 (160-240 ms) MV PHT 103.00 ms Pulmonary Valve PV Peak Velocity 65.00 (50-150 cm/s) Tricuspid Valve TR P. Velocity 208.00 cm/s RAP Estimate 10.00 mmHg RVSP 27.20 mmHg Left Ventricle Technically difficult study because of the patient factors and poor acoustic windows. Left atrium is mildly enlarged, left ventricle is normal size, visually estimated ejection fraction approximately 50%, there is abnormal septal motion. Doppler evidence of impaired LV relaxation seen, tissue Doppler is inconclusive Right Ventricle Right atrium and right ventricle are relatively normal size and function. Aortic Valve Aortic valve is minimally thickened and fibrosed, there is no aortic stenosis or aortic insufficiency. Mitral Valve Mitral valve is grossly normal, there is trace mitral regurgitation. Tricuspid Valve Tricuspid valve grossly normal, there is trace tricuspid regurgitation, tricuspid regurgitation jet velocity is inadequate for calculation of the right ventricular systolic pressure. Pulmonic Valve Pulmonic valve is poorly visualized. Great Vessels Aortic root is normal size. Inferior vena cava is mildly dilated without significant inspiratory collapse. Pericardium No significant pericardial effusion noted. Conclusion 1. Technically difficult study because of the patient factors and poor acoustic windows, left atrium is mildly enlarged, left ventricle is normal size, mild concentric left ventricular hypertrophy, visually estimated ejection fraction 50% with abnormal septal motion, Doppler evidence of impaired LV relaxation seen. 2. Trace mitral and tricuspid regurgitation. 3. No significant pericardial effusion noted. 4. Inferior vena cava is mildly dilated without significant inspiratory collapse. Electronically signed by : Moreno Youssef MD 07/18/2021 21:22:53
== END ==
LOC: RT 09:51
PROVIDERS: PCP Family Medicine; Visit Provider Urology
DX: E78.2 Mixed hyperlipidemia (principal); I10 Essential (primary) hypertension; I25.10 Atherosclerotic heart disease of native coronary artery without angina pectoris; Z72.0 Tobacco use; Z98.890 Other specified postprocedural states; R06.09 Other forms of dyspnea; R94.31 Abnormal electrocardiogram [ECG] [EKG]
CPT/HCPCS: 93306

== ENCOUNTER → 2021-08-01 12:52 | Outpatient (CLI) | payer MEDICARE, SELFPAY ==
[2021-08-01 15:14] LABS: Barbiturates Screen,Urine Negative ng/ml (<200); Benzodiazepines Screen,Urine Negative ng/ml (<200)
[2021-08-01 15:15] LABS: Amphetamine/Metha Screen,Urine Negative ng/ml (<1000)
[2021-08-01 15:18] LABS: Cannabinoid Screen,Urine Negative ng/ml (<50)
[2021-08-01 15:19] LABS: Cocaine Screen,Urine Negative ng/ml (<300); Methadone Screen,Urine Negative ng/ml (<300)
[2021-08-01 15:22] LABS: Opiate Screen,Urine Negative ng/ml (<300)
[2021-08-01 15:23] LABS: Phencyclidine Screen,Urine Negative ng/ml (<25)
== END ==
LOC: LAB.DROPOF 12:53
PROVIDERS: Visit Provider Family Medicine
DX: Z79.899 Other long term (current) drug therapy (principal)
CPT/HCPCS: 80305

== ENCOUNTER → 2021-12-27 08:54 | Outpatient (CLI) | payer MEDICARE, SELFPAY ==
--- NOTE | 2021-12-27 08:54 | CA_ITS ---
FINAL REPORT TECHNIQUE: Color Doppler, duplex Doppler and sheppard scale sonography of the bilateral neck arterial vasculature was performed. Velocities were measured in the carotid arteries. Stenosis evaluation based on the validated velocity criteria. CLINICAL HISTORY: RT CARTOID BRUIT,SMOKER,HTN FINDINGS: The peak systolic velocity of the right common carotid artery is 60 cm/s. The peak systolic velocity of the right internal carotid artery is 96cm/s and end diastolic velocity 36 cm/s. The ICA/CCA ratio is 1.74. A moderate amount of plaque is present. The right external carotid artery is patent. The right vertebral artery is patent with antegrade flow. The peak systolic velocity of the left common carotid artery is 91 cm/s. The peak systolic velocity of the left internal carotid artery is 135 cm/s and end diastolic velocity 45 cm/s. The ICA/CCA ratio is 1.2. A moderate amount of plaque is present. The left external carotid artery is patent.The left vertebral artery is patent with antegrade flow. IMPRESSION: Less than 50% bilateral carotid stenoses. Bilateral patent vertebral arteries with antegrade flow. If indicated, CTA or MRA could further evaluate. Reviewed, Interpreted and Dictated by Ernesto Dumont MD Transcribed by Eun Ledezma Authenticated by Ernesto Dumont MD on 12/27/2021 11:38:[address] [facility]
== END ==
LOC: RT 08:54
PROVIDERS: PCP Family Medicine; Visit Provider Nurse Practitioner Family
DX: R09.89 Other specified symptoms and signs involving the circulatory and respiratory systems (principal)
CPT/HCPCS: 93880

== ENCOUNTER → 2022-05-02 07:53 | Outpatient (CLI) | payer MEDICARE, SELFPAY ==
--- NOTE | 2022-05-02 07:59 | XR_ITS ---
FINAL REPORT CLINICAL HISTORY: lbp FINDINGS: LUMBAR SPINE Three views were obtained. There is no acute fracture. There is no malalignment. There are mild and moderate degenerative changes with osteophytes. There are moderate vascular calcifications. There is a probable 3.3 cm abdominal aortic aneurysm. IMPRESSION: Probable abdominal aortic aneurysm. CT angiogram of the abdomen could further evaluate. Mild and moderate degenerative changes with osteophytes. Reviewed, Interpreted and Dictated by Carlos Wright III, MD Transcribed by Isa Santacruz Authenticated and [facility]
--- NOTE | 2022-05-02 07:59 | XR_ITS ---
FINAL REPORT CLINICAL HISTORY: pain FINDINGS: Two views of the left knee were obtained. There is no evidence of fracture or dislocation. There is mild lateral subluxation of the tibia in relation to the distal femur. There are moderate medial and patellofemoral degenerative changes. There is no evidence of joint effusion. There are vascular calcifications. There is no evidence of foreign body. IMPRESSION: Moderate degenerative changes. Reviewed, Interpreted and Dictated by Carlos Wright III, MD Transcribed by Isa Santacruz Authenticated and [facility]
== END ==
LOC: RAD 07:54
PROVIDERS: PCP Family Medicine; Visit Provider Family Medicine
DX: Z76.0 Encounter for issue of repeat prescription (principal); M54.50 Low back pain, unspecified; M17.12 Unilateral primary osteoarthritis, left knee
CPT/HCPCS: 72100; 73560

== ENCOUNTER → 2022-07-28 09:37 | Outpatient (CLI) | payer MEDICARE, SELFPAY ==
[2022-07-28 15:50] LABS: Basophils % 0.5 % (0.1-2.0); Eosinophils % 0.1 % (0.1-12.0); Hematocrit 45.5 % (42.0-52.0); Hemoglobin 14.8 g/dL (14.1-18.0); Lymphocytes # 0.6 K/mm3 (0.7-4.5); Mean Corpuscular HGB Conc 32.5 g/dL (31.8-35.4); Mean Corpuscular Hemoglobin 31.9 pg (27.0-31.2); Mean Corpuscular Volume 98.2 fl (80-94); Monocytes # 0.4 K/mm3 (0.1-1.0); Monocytes % 6.5 % (1.7-9.3); Neutrophils # 5.5 K/mm3 (1.8-7.8); Neutrophils % 83.8 % (37.0-80.0); Platelet Count 214 K/mm3 (142-424); Red Blood Count 4.63 M/mm3 (4.60-6.20); White Blood Count 6.5 K/mm3 (4.8-10.8)
[2022-07-28 16:06] LABS: Alanine Aminotransferase 19 U/L (12-78); Albumin/Globulin Ratio 1.8 (1.1-1.8); Alkaline Phosphatase 129 U/L (38-126); Aspartate Amino Transferase 25 U/L (17-59); Bilirubin,Total 0.8 mg/dl (0.2-1.3); Blood Urea Nitrogen 10 mg/dl (9-20); Calcium 9.2 mg/dl (8.4-10.2); Carbon Dioxide 30 mmol/L (22.0-30.0); Chloride 97 mmol/L (98-107); Chol/HDL Ratio 2.4 (1-3.5); Cholesterol 140 mg/dl (140-200); Estimated Glomerular Filt Rate 84 ml/min (>60); GFR (African American) 101 ML/MIN (>60); Globulin 2.2 g/dL (1.3-3.2); Glucose 112 mg/dl (74-100); HDL Cholesterol 58 mg/dl (40-60); Potassium 4.5 mmoL/L (3.5-5.1); Total Protein,Serum 6.2 g/dl (6.3-8.2); Triglycerides 75 mg/dl (30-150); VLDL Cholesterol 15 mg/dL (0-40)
[2022-07-28 16:18] LABS: Direct LDL Cholesterol 66.39 mg/dL (100-129)
[2022-07-28 16:37] LABS: Prostate Specific Ag Screen 15.6 ng/ml (0.0-4.0); Thyroid Stimulating Hormone 1.02 uIU/mL (0.465-4.68)
[2022-07-28 17:46] LABS: Anion Gap 13.5 mEq/L (5-15); Sodium 136 mmol/L (136-145)
== END ==
LOC: LAB.DROPOF 07-31 07:37
PROVIDERS: PCP Family Medicine; Visit Provider Family Medicine
DX: N40.0 Benign prostatic hyperplasia without lower urinary tract symptoms (principal); Z72.0 Tobacco use; E11.9 Type 2 diabetes mellitus without complications; Z12.5 Encounter for screening for malignant neoplasm of prostate
CPT/HCPCS: 80053; 80061; 83036; 84443; 85025; G0103

== ENCOUNTER → 2022-08-25 14:22 | Outpatient (CLI) | payer MEDICARE, SELFPAY ==
[2022-08-25 17:02] LABS: Prostate Specific Ag, Diagnost 14.9 ng/ml (0.0-4.0)
== END ==
PROVIDERS: PCP Family Medicine; Visit Provider Family Medicine
DX: N40.0 Benign prostatic hyperplasia without lower urinary tract symptoms (principal)
CPT/HCPCS: 84153

== ENCOUNTER → 2022-11-06 08:47 | Outpatient (CLI) | payer MEDICARE, SELFPAY ==
[2022-11-06 09:35] LABS: Albumin Level 4.1 g/dl (3.5-5.0); Chloride 106 mmol/L (98-107); Potassium 4.1 mmoL/L (3.5-5.1); Sodium 142 mmol/L (136-145)
[2022-11-06 09:38] LABS: Anion Gap 6.1 mEq/L (5-15); Blood Urea Nitrogen 10 mg/dl (9-20); Calcium 8.8 mg/dl (8.4-10.2); Carbon Dioxide 34 mmol/L (22.0-30.0); Estimated Glomerular Filt Rate 96 ml/min (>60); GFR (African American) 116 ML/MIN (>60); Glucose 99 mg/dl (74-100); Phosphorous 3.8 mg/dl (2.5-4.5)
== END ==
PROVIDERS: PCP Family Medicine; Visit Provider Urology
DX: R97.20 Elevated prostate specific antigen [PSA] (principal)
CPT/HCPCS: 36415; 80069

== ENCOUNTER → 2023-03-21 08:45 | Outpatient (CLI) | payer MEDICARE, SELFPAY ==
--- NOTE | 2023-03-21 08:52 | XR_ITS ---
FINAL REPORT CLINICAL HISTORY: prostate CANCER COMPARISON: 01/13/2020 FINDINGS: TWO VIEW CHEST The heart size is normal. The mediastinum is normal. The lungs are hyperinflated, which are consistent with COPD. There is mild scarring, but the lungs are otherwise stable. There is no pneumothorax. IMPRESSION: Hyperinflated lungs consistent with COPD. Mild scarring of the lungs, but otherwise clear. Reviewed, Interpreted and Dictated by Carlos Wright III, MD Transcribed by Gloria Lake Authenticated and [facility]
--- NOTE | 2023-03-21 08:53 | NM_ITS ---
FINAL REPORT CLINICAL HISTORY: CANCER prostate 9:05am 25.1 mci tc MDP FINDINGS: EXISTING RELEVANT IMAGING STUDIES: Cervical spine dated 03/21/2023 TECHNIQUE: The patient was injected with 25.1 mCi of technetium 99-MDP. Delayed images were obtained. There is increased tracer activity in the shoulders and knees consistent with degenerative changes. There is increased tracer activity in the base of right neck, likely due to significant degenerative changes of the cervical spine as seen on plain radiographs. IMPRESSION: No convincing findings to indicate metastatic bone disease. Findings consistent with degenerative changes. Reviewed, Interpreted and Dictated by Carlos Wright III, MD Transcribed by Eun Ledezma Authenticated and [facility]
[2023-03-21 09:21] LABS: Basophils % 0.6 % (0.1-2.0); Eosinophils # 0.1 K/mm3 (0.0-0.4); Eosinophils % 1.9 % (0.1-12.0); Hematocrit 50.3 % (42.0-52.0); Hemoglobin 16.1 g/dL (14.1-18.0); Lymphocytes # 1.5 K/mm3 (0.7-4.5); Mean Corpuscular Hemoglobin 31.6 pg (27.0-31.2); Mean Corpuscular Volume 98.8 fl (80-94); Mean Platelet Volume 8.3 fl (7.4-10.4); Monocytes # 0.5 K/mm3 (0.1-1.0); Monocytes % 9.2 % (1.7-9.3); Neutrophils # 3.7 K/mm3 (1.8-7.8); Neutrophils % 62.2 % (37.0-80.0); Platelet Count 215 K/mm3 (142-424); Red Blood Count 5.09 M/mm3 (4.60-6.20); Red Cell Distribution Width 13.1 % (11.5-17.5); White Blood Count 5.9 K/mm3 (4.8-10.8)
[2023-03-21 09:40] LABS: Alanine Aminotransferase 24 U/L (12-78); Albumin Level 4.1 g/dl (3.5-5.0); Albumin/Globulin Ratio 1.7 (1.1-1.8); Alkaline Phosphatase 103 U/L (38-126); Anion Gap 10.7 mEq/L (5-15); Aspartate Amino Transferase 30 U/L (17-59); Bilirubin,Total 0.8 mg/dl (0.2-1.3); Blood Urea Nitrogen 12 mg/dl (9-20); Carbon Dioxide 33 mmol/L (22.0-30.0); Chloride 99 mmol/L (98-107); Estimated Glomerular Filt Rate 74 ml/min (>60); GFR (African American) 90 ML/MIN (>60); Globulin 2.4 g/dL (1.3-3.2); Glucose 109 mg/dl (74-100); Potassium 4.7 mmoL/L (3.5-5.1); Sodium 138 mmol/L (136-145); Total Protein,Serum 6.5 g/dl (6.3-8.2)
[2023-03-21 10:29] LABS: Prostate Specific Ag, Diagnost 32.4 ng/ml (0.0-4.0)
--- NOTE | 2023-03-21 12:39 | XR_ITS ---
FINAL REPORT CLINICAL HISTORY: HOT SPOT ON BONE SCAN..PROSTATE CA FINDINGS: CERVICAL SPINE Three views demonstrate no acute fracture. There are significant degenerative changes in the mid and lower cervical spine. There is multilevel facet arthropathy. There is no malalignment. IMPRESSION: Significant degenerative changes. Reviewed, Interpreted and Dictated by Carlos Wright III, MD Transcribed by Eun Ledezma Authenticated and [facility]
== END ==
PROVIDERS: PCP Family Medicine; Visit Provider Urology
DX: R97.20 Elevated prostate specific antigen [PSA] (principal); C61 Malignant neoplasm of prostate
CPT/HCPCS: 36415; 71046; 72040; 78306; 80053; 84153; 85025; A9503

== ENCOUNTER 2023-09-21 09:05 | Outpatient (CLI) | payer MEDICARE, SELFPAY ==
[2023-09-21 19:17] LABS: Prostate Specific Ag Screen 5.3 ng/ml (0.0-4.0)
[2023-09-21 19:40] LABS: Methadone Screen,Urine Negative ng/ml (<300); Opiate Screen,Urine Negative ng/ml (<300)
[2023-09-21 22:19] LABS: Amphetamine/Metha Screen,Urine Negative ng/ml (<1000); Barbiturates Screen,Urine Negative ng/ml (<200); Benzodiazepines Screen,Urine Negative ng/ml (<200); Cannabinoid Screen,Urine Negative ng/ml (<50); Cocaine Screen,Urine Negative ng/ml (<300); Phencyclidine Screen,Urine Negative ng/ml (<25)
== END 2023-09-21 23:59 ==
LOC: LAB.DROPOF 09-22 09:05
PROVIDERS: PCP Family Medicine; Visit Provider Family Medicine
DX: Z79.899 Other long term (current) drug therapy (principal); Z12.5 Encounter for screening for malignant neoplasm of prostate
CPT/HCPCS: 80307; G0103

== ENCOUNTER 2023-10-08 09:01 | Outpatient (CLI) | payer MEDICARE, SELFPAY ==
--- NOTE | 2023-10-08 09:01 | CT_ITS ---
FINAL REPORT TECHNIQUE: Postcontrast images of the pelvis and extremities were performed by computed tomography. Extensive 3-D reconstruction images were performed. A CTA was performed. This study was performed with techniques to keep radiation doses as low as reasonably achievable (ALARA). Individualized dose reduction techniques using automated exposure control or adjustment of mA and/or kV according to the patient''s size were employed. CLINICAL HISTORY: right popliteal aneurysm FINDINGS: There is an aortobifemoral bypass graft in place. Dense calcification is seen within the osage arteries. There are metallic densities of the prostate. There is mild calcification in the left popliteal artery and moderate calcification in the right popliteal artery. There is no evidence of aneurysm. Multiple calcifications or ossific densities are seen in the right popliteal fossa measuring 2.5 cm which appears to represent intra-articular loose bodies. This is best seen on image 123 of series 3. Right lower extremity: The iliac vessels are unremarkable. The femoral vessels are unremarkable. The SFA is without significant stenosis. The popliteal artery is unremarkable. The trifurcation is unremarkable. The anterior tibial, posterior tibial, and peroneal vessels cross the ankle properly. Left lower extremity: The iliac vessels are unremarkable. The femoral vessels are unremarkable. The SFA is without significant stenosis. The popliteal artery is unremarkable. The trifurcation is unremarkable. The anterior tibial, posterior tibial, and peroneal vessels cross the ankle properly. IMPRESSION: Mild calcification in the left popliteal artery and moderate calcification in the right popliteal artery. No evidence of aneurysm or stenosis. Patent trifurcation. Multiple calcific or ossific densities in the right popliteal fossa measuring up to 2.5 cm likely related to intra-articular loose bodies. Reviewed, Interpreted and Dictated by Ernesto Dumont MD Transcribed by Yamileth Herndon Authenticated and [facility]
[2023-10-08 09:41] LABS: Blood Urea Nitrogen 9 mg/dl (9-20); Estimated Glomerular Filt Rate 83 ml/min (>60); GFR (African American) 101 ML/MIN (>60)
[2023-10-08] MEDS: 0.9 % SODIUM CHLORIDE 50 ML VIAL IV (10:23)
[2023-10-08] MEDS: SODIUM CHLORIDE 0.9% 10ML SYR (RAD ONLY) 10 ML IV (10:23)
[2023-10-08] MEDS: IOPAMIDOL-370 (76%);100ML BOTTLE 120 ML IV (10:24)
== END 2023-10-08 23:59 ==
LOC: RAD 09:01
PROVIDERS: PCP Family Medicine; Visit Provider Family Medicine
DX: I72.9 Aneurysm of unspecified site (principal)
CPT/HCPCS: 36415; 73701; 82565; 84520; Q9967

== ENCOUNTER 2024-01-24 09:18 | Outpatient (CLI) | payer MEDICARE, SELFPAY ==
[2024-01-24 11:19] LABS: Prostate Specific Ag, Diagnost 4.03 ng/ml (0.0-4.0)
== END 2024-01-24 23:59 | disposition home or self-care (01) ==
LOC: LAB.DROPOF 01-28 09:18
PROVIDERS: PCP Family Medicine; Visit Provider Family Medicine
DX: R97.20 Elevated prostate specific antigen [PSA] (principal)
CPT/HCPCS: 84153

== ENCOUNTER 2024-02-04 14:59 | Emergency (ER) | payer MEDICARE, SELFPAY ==
[2024-02-04] VITALS (7 sets, daily range): BP systolic 110–134; BP diastolic 72–94; PULSE 58–86; RESP 13–22; TEMP 36.4–36.8; O2SAT 88–94; BMI 18.8; BMI 19.0
--- NOTE | 2024-02-04 15:29 | EXP.UTC ---
Discharge Plan Disposition Patient Disposition: Home, Self-Care Prescriptions Prescriptions: No Action atorvastatin 40 mg tablet 40 mg PO DAILY clopidogrel 75 mg tablet 75 mg PO DAILY bisoprolol-hydrochlorothiazide 2.5-6.25 mg tablet 1 tab PO DAILY oxycodone-acetaminophen 5-325 mg tablet 1 tab PO DAILY tamsulosin 0.4 mg capsule 0.4 mg PO DAILY pantoprazole 40 mg tablet,delayed release (DR/EC) 40 mg PO DAILY albuterol sulfate 90 mcg/actuation HFA aerosol inhaler 2 puff INHALATION Q4HP PRN (Reason: SOA) lisinopril 2.5 mg tablet 2.5 mg PO DAILY alfuzosin 10 mg tablet extended release 24 hr 10 mg PO DAILY Referrals Follow up/Referrals: Carlos Loera MD [Staff Physician] - See instructions Valerio Zayas MD [Primary Care Provider] - See instructions Activity Restrictions/Add. Instructions Additional Instructions/Restrictions: At this time it was felt you are safe to be discharged home. If new or worsening symptoms please do not hesitate to return the emergency department. Please call and schedule appoint with Dr. Loera for your hernia in your right groin. Please follow-up with your family doctor for the kidney lesion that we found on your left kidney for continued evaluation. Clinical Impressions Clinical Impression: Inguinal hernia, Kidney lesion Discharge ED Provider: Donell Vega [facility] [place] [facility] <Leti Shahid APRN - Last Filed: 02/04/24 21:01> General Chief complaint: PAIN Stated complaint: Pain and lump on R side of groin Mode of Arrival: Ambulatory Source of Information: Patient Limitations: No Limitations Time Seen by Provider: 02/04/24 15:29 Description of Symptoms (Recalled from Triage Doc. by RN): PATIENT C/O PAINFUL LUMP TO RIGHT GROIN AREA X 2 WEEKS. HE ALSO REPORTS BEING NAUSEOUS RECENTLY WITH IT. DENIES VOMITING OR ANY PROBLEMS WITH URINATION OR BOWEL MOVEMENTS HEENT Symptoms (Recalled from RN notes): No Resp Symptoms (Recalled from RN notes): No Skin Symptoms (Recalled from RN notes): No MS Symptoms (Recalled from RN notes): No Functional Status (Recalled from RN notes): WNL History of Present Illness Provider Complaint: Patient states that he noticed a goose egg knot on his right groin area about 2 weeks ago States it was uncomfortable but the pain has continued and got worse States that it is very tender and feels like it is ripping something out in there and very tender to the touch and causing his stomach to hurt and today the pain has made him nauseous States he has hx of AAA repair about 3 yrs ago Denies having any bowel or urinary issues Related Data Home Medications Medication Instructions Recorded Confirmed albuterol sulfate 90 mcg/actuation 2 puff inhalation Q4HP PRN SOA 02/04/24 02/04/24 aerosol inhaler alfuzosin 10 mg tablet,extended 10 mg PO DAILY 02/04/24 02/04/24 release 24 hr atorvastatin 40 mg tablet 40 mg PO DAILY 02/04/24 02/04/24 bisoprolol 2.5 1 tab PO DAILY 02/04/24 02/04/24 mg-hydrochlorothiazide 6.25 mg tablet clopidogrel 75 mg tablet 75 mg PO DAILY 02/04/24 02/04/24 lisinopril 2.5 mg tablet 2.5 mg PO DAILY 02/04/24 02/04/24 oxycodone-acetaminophen 5 mg-325 1 tab PO DAILY 02/04/24 02/04/24 mg tablet pantoprazole 40 mg tablet,delayed 40 mg PO DAILY 02/04/24 02/04/24 release tamsulosin 0.4 mg capsule 0.4 mg PO DAILY 02/04/24 02/04/24 Allergies Allergy/AdvReac Type Severity Reaction Status Date / Time cyclobenzaprine Allergy Severe Swelling Verified 01/23/24 08:25 [From Flexeril] of Lip/Tongue/Throat/Eyes Worker's Comp Is this a Worker's Comp case?: No [facility] <Leti Shahid, CLINICAL THERAPIST - Last Filed: 02/04/24 21:01> [facility] Disclaimer: The information contained in this section may have been updated after the patient was seen, as this information can be updated by other users. Medical History (Updated 02/04/24 @ 18:29 by Donell Vega MD) Hx of myocardial infarction Hx of aortic aneurysm History of prostate cancer Encounter for pre-operative cardiovascular clearance Tobacco dependence syndrome Cardiomyopathy Dyspnea Abnormal EKG Sinus bradycardia Atypical angina Colonoscopy refused Pneumococcal vaccination declined by patient Low back pain radiating to left leg CAD (coronary artery disease) Hyperlipidemia BPH (benign prostatic hyperplasia) Arthritis Essential hypertension Surgical History History of lumbar discectomy Social History Smoking Status: Current every day smoker tobacco type: cigarettes packs per day: 1 alcohol intake: never substance use type: denies use current occupational status: retired Travel in the last 8 weeks: None household members: spouse housing: house current occupational exposures/hazards: No caffeine: Yes <Leti Shahid APRN - Last Filed: 02/04/24 21:01> ROS Obtained: Yes All systems reviewed & no additional complaints except as documented and Yes Systems reviewed as appropriate & no additional complaints except as documented Constitutional Constitutional: Reports system reviewed and no additional complaints, except as documented and Reports as per HPI ENT Ears, Nose, Mouth, and Throat: Reports system reviewed and no additional complaints, except as documented and Reports as per HPI Cardiovascular Cardiovascular: Reports system reviewed and no additional complaints, except as documented and Reports as per HPI Respiratory Respiratory: Reports system reviewed and no additional complaints, except as documented and Reports as per HPI Gastrointestinal Gastrointestingal: Reports system reviewed and no additional complaints, except as documented, as per HPI, abdominal pain and other Comments: Reports goose egg knot in right groin that feels like it is Pulling and ripping apart feeling when he moves or touches it Physical Exam <Leti Shahid APRN - Last Filed: 02/04/24 21:01> General General appearance: alert and in no apparent distress Respiratory Respiratory exam: Present normal lung sounds bilaterally; Absent respiratory distress or wheezes Cardiovascular Cardiovascular exam: Present regular rate, normal rhythm and normal heart sounds Abdominal Exam Abdominal exam: Present tenderness (reports tenderness in lower abdomen with palpation) Expanded Exam Male Image: 1. raised area noted appears like hernia patient reports is very tender and feels ripping pain Neurological Exam Neurological exam: Present alert, oriented X3 and normal gait Medical Decision Making <Leti Shahid APRN - Last Filed: 02/04/24 21:01> Zeke Inquiry Pt receiving controlled substance: No Zeke was queried for this patient: No Vital Signs: 02/04/24 15:10 Temperature 98.2 F Temperature Source Oral Pulse Rate [Left Brachial] 60 Respiratory Rate 22 Blood Pressure [Left Arm] 122/79 Blood Pressure Mean [Left Arm] 93 Blood Pressure Source [Left Arm] Automatic Cuff Blood Pressure Position [Left Arm] Sitting 02 Sat by Pulse Oximetry 94 L Oxygen Delivery Method Room Air Lab Data 02/04/24 16:28 02/04/24 16:28 Medical Decision Narrative: Patient states that he noticed a knot on his right side of groin area about 2 weeks ago that was tender but states that pain has got worse and the area is larger and feels ripping like pain in the area and now it is hurting up into his stomach and making him feel nauseous has Hx of triple AAA repair in 2020 discussed with patient and will transfer to the ED for further work up and evaluation and patient agreed called ED awaiting room assignment <Donell Vega MD - Last Filed: 02/04/24 18:25> Vital Signs: 02/04/24 15:10 Temperature 98.2 F Temperature Source Oral Pulse Rate [Left Brachial] 60 Respiratory Rate 22 Blood Pressure [Left Arm] 122/79 Blood Pressure Mean [Left Arm] 93 Blood Pressure Source [Left Arm] Automatic Cuff Blood Pressure Position [Left Arm] Sitting 02 Sat by Pulse Oximetry 94 L Oxygen Delivery Method Room Air Medical Decision Narrative: Patient states that he noticed a knot on his right side of groin area about 2 weeks ago that was tender but states that pain has got worse and the area is larger and feels ripping like pain in the area and now it is hurting up into his stomach and making him feel nauseous has Hx of triple AAA repair in 2020 discussed with patient and will transfer to the ED for further work up and evaluation and patient agreed called ED awaiting room assignment.
--- NOTE | 2024-02-04 16:10 | PC.NURSE ---
PATIENT SENT TO ER PER Vickie AYOUB APRN FOR FURTHER EVALUATION. REPORT GIVEN TO DR. RAMIREZ BY Vickie AYOUB APRN AND Austin ESTRELLA RN BY Stephanie MAXWELL RN. PATIENT TRANSPORTED TO ER VIA WHEELCHAIR WITH [facility] STAFF ASSIST AT THIS TIME
--- NOTE | 2024-02-04 16:22 | CT_ITS ---
PROCEDURE INFORMATION: Exam: CT Abdomen And Pelvis With Contrast Exam date and time: 02/04/2024 5:28 PM Age: 68 years old Clinical indication: Pain; Other: Groin; Prior surgery; Surgery date: 6+ months; Surgery type: Tripple a. Gb removed; Additional info: R tender groin hernia TECHNIQUE: Imaging protocol: Computed tomography of the abdomen and pelvis with contrast. Radiation optimization: All CT scans at this facility use at least one of these dose optimization techniques: automated exposure control; mA and/or kV adjustment per patient size (includes targeted exams where dose is matched to clinical indication); or iterative reconstruction. Contrast material: ISOVUE; Contrast volume: 75 ml; Contrast route: IV; COMPARISON: CT ANGIO ABDOMEN 10/29/2020 10:25 AM FINDINGS: Lungs: Bilateral lower lobe calcified granulomas. Liver: Unchanged 1.0 cm cyst in the anterior segment of the right hepatic lobe. No hepatomegaly. Gallbladder and bile ducts: Status post cholecystectomy. No significant biliary ductal dilitation. Pancreas: Normal. No ductal dilation. Spleen: Normal. No splenomegaly. Adrenal glands: Normal. No mass. Kidneys and ureters: 8 mm low-density lesion in the upper pole of the left kidney with Hounsfield units of 60 has enlarged (previously 4 mm). Bilateral simple renal cysts measure up to 1.8 cm in the anterior left kidney and 1.6 cm in the superior right kidney. No hydronephrosis. Stomach and bowel: Distal colonic diverticulosis without diverticulitis. Moderate fecal material in the colon. No dilated or thickened bowel loops. Large periampullary duodenal diverticulum. Appendix: No evidence of appendicitis. Intraperitoneal space: Unremarkable. No free air. No significant fluid collection. Vasculature: Status post graft repair of an abdominal aortic aneurysm with the graft extending from the infrarenal abdominal aorta to the bilateral common femoral arteries. The left renal vein appears to have been surgically anastomosed to a small lumbar vein. Lymph nodes: Unremarkable. No enlarged lymph nodes. Urinary bladder: Unremarkable as visualized. Reproductive: Enlarged prostate. Metallic markers within the prostate. Bones/joints: Mild lumbar spine levoscoliosis. Mild multilevel degenerative disc disease. Mild degenerative change of the bilateral hips. Osteopenia. Soft tissues: Surgical clip in the right groin. No right inguinal hernia. Small fat containing left inguinal hernia. IMPRESSION: 1. Vascular graft extends from the abdominal aorta to the bilateral common femoral veins. Graft is widely patent. No hematoma in the inguinal regions. 2. No right inguinal hernia. 3. Mild enlargement of a 0.8 cm intermediate density lesion in the upper pole of the left kidney. Small renal cell carcinoma is not excluded. Depending on the patient's comorbidities MRI without and with contrast could be performed or this could be followed with renal mass CT in 6-12 months. COMMENTS: Consistent with the [employer]'s Incidental Findings Committee white paper (J Am Larry Radiol 2018): Any incidental renal lesion less than 1 cm or classified as too small to characterize, or any incidental cystic renal lesion characterized as simple-appearing, is likely benign. No follow-up imaging is recommended for these lesions per consensus recommendations based on imaging criteria.
--- NOTE | 2024-02-04 16:29 | ED_ITS ---
Discharge Plan Disposition Patient Disposition: Home, Self-Care Chief Complaint: PAIN Prescriptions Prescriptions: No Action atorvastatin 40 mg tablet 40 mg PO DAILY clopidogrel 75 mg tablet 75 mg PO DAILY bisoprolol-hydrochlorothiazide 2.5-6.25 mg tablet 1 tab PO DAILY oxycodone-acetaminophen 5-325 mg tablet 1 tab PO DAILY tamsulosin 0.4 mg capsule 0.4 mg PO DAILY pantoprazole 40 mg tablet,delayed release (DR/EC) 40 mg PO DAILY albuterol sulfate 90 mcg/actuation HFA aerosol inhaler 2 puff INHALATION Q4HP PRN (Reason: SOA) lisinopril 2.5 mg tablet 2.5 mg PO DAILY alfuzosin 10 mg tablet extended release 24 hr 10 mg PO DAILY Referrals Follow up/Referrals: Valerio Zayas MD [Primary Care Provider] - See instructions Carlos Loera MD [Staff Physician] - See instructions Activity Restrictions/Add. Instructions Additional Instructions/Restrictions: At this time it was felt you are safe to be discharged home. If new or worsening symptoms please do not hesitate to return the emergency department. Please call and schedule appoint with Dr. Loera for your hernia in your right groin. Please follow-up with your family doctor for the kidney lesion that we found on your left kidney for continued evaluation. Clinical Impressions Clinical Impression: Inguinal hernia, Kidney lesion Discharge ED Provider: Donell Vega General Adult HPI General Chief complaint: PAIN Stated complaint: Pain and lump on R side of groin Time Seen by Provider: 02/04/24 15:29 Mode of Arrival: Ambulatory Source of Information: Patient Limitations: No Limitations Description of Symptoms (Recalled from ER Triage Doc. by RN): pt presents to ED from [facility] for further workup. pt reports for past two weeks he has had buldge in groin on right side. pt reports he has not had any recent injury. pt reports pain from groin is causing him to be nauseated. History of Present Illness HPI narrative: Patient is a 68-year-old male with past medical history of aortic aneurysm status post open surgical intervention 3 years ago on the left lower quadrant of the abdomen who presents emergency department for right inguinal swelling. Onset was acute, over the last 2 weeks. It has been intermittently painful, intermittently palpable and not. Last bowel movement 3 hours prior to arrival, no blood in stool, no dysuria. No other acute complaints at this time. Related Data Home Medications Medication Instructions Recorded Confirmed albuterol sulfate 90 mcg/actuation 2 puff inhalation Q4HP PRN SOA 02/04/24 02/04/24 aerosol inhaler alfuzosin 10 mg tablet,extended 10 mg PO DAILY 02/04/24 02/04/24 release 24 hr atorvastatin 40 mg tablet 40 mg PO DAILY 02/04/24 02/04/24 bisoprolol 2.5 1 tab PO DAILY 02/04/24 02/04/24 mg-hydrochlorothiazide 6.25 mg tablet clopidogrel 75 mg tablet 75 mg PO DAILY 02/04/24 02/04/24 lisinopril 2.5 mg tablet 2.5 mg PO DAILY 02/04/24 02/04/24 oxycodone-acetaminophen 5 mg-325 1 tab PO DAILY 02/04/24 02/04/24 mg tablet pantoprazole 40 mg tablet,delayed 40 mg PO DAILY 02/04/24 02/04/24 release tamsulosin 0.4 mg capsule 0.4 mg PO DAILY 02/04/24 02/04/24 Allergies Allergy/AdvReac Type Severity Reaction Status Date / Time cyclobenzaprine Allergy Severe Swelling Verified 01/23/24 08:25 [From Flexeril] of Lip/Tongue/Throat/Eyes [facility] Disclaimer: The information contained in this section may have been updated after the patient was seen, as this information can be updated by other users. Medical History (Updated 02/04/24 @ 18:29 by Donell Vega MD) Hx of myocardial infarction Hx of aortic aneurysm History of prostate cancer Encounter for pre-operative cardiovascular clearance Tobacco dependence syndrome Cardiomyopathy Dyspnea Abnormal EKG Sinus bradycardia Atypical angina Colonoscopy refused Pneumococcal vaccination declined by patient Low back pain radiating to left leg CAD (coronary artery disease) Hyperlipidemia BPH (benign prostatic hyperplasia) Arthritis Essential hypertension Surgical History History of lumbar discectomy Social History Smoking Status: Current every day smoker tobacco type: cigarettes packs per day: 1 alcohol intake: never substance use type: denies use current occupational status: retired Travel in the last 8 weeks: None household members: spouse housing: house current occupational exposures/hazards: No caffeine: Yes ROS Obtained: Yes Systems reviewed as appropriate & no additional complaints except as documented Physical Exam General General appearance: alert and in no apparent distress Head Head exam: atraumatic and normocephalic Eye Eye exam: Present PERRL ENT ENT exam: Present mucous membranes moist Neck Neck exam: Present normal inspection Chest Chest inspection: Present normal inspection and symmetric chest wall rise Respiratory Respiratory exam: Present normal lung sounds bilaterally; Absent respiratory distress Cardiovascular Cardiovascular exam: Present regular rate and normal rhythm Abdominal Exam Abdominal exam: Present soft, tenderness (Right inguinal region has area of fluctuant swelling that is tender, appears to be reducible however recurs. No pulsatility.) and other (Well-healed surgical scars throughout the abdomen and right groin) Extremities Exam Extremities exam: Present normal inspection Neurological Exam Neurological exam: Present alert Psychiatric Psychiatric exam: Present normal affect Skin Skin exam: Present warm and dry Medical Decision Making Zeke Inquiry Pt receiving controlled substance: No Vital Signs: 02/04/24 15:10 02/04/24 16:08 02/04/24 16:19 Temperature 98.2 F 97.6 F Temperature Source Oral Oral Pulse Rate 86 Pulse Rate [Left Brachial] 60 84 Respiratory Rate 22 13 Blood Pressure 134/94 H Blood Pressure [Left Arm] 122/79 134/94 H Blood Pressure Mean [Left Arm] 93 107 Blood Pressure Source [Left Arm] Automatic Cuff Blood Pressure Position [Left Arm] Sitting 02 Sat by Pulse Oximetry 94 L 94 L 94 L Oxygen Delivery Method Room Air Room Air Room Air 02/04/24 16:30 02/04/24 17:01 Temperature Temperature Source Pulse Rate 73 64 Pulse Rate [Left Brachial] Respiratory Rate Blood Pressure 130/89 110/72 Blood Pressure [Left Arm] Blood Pressure Mean [Left Arm] Blood Pressure Source [Left Arm] Blood Pressure Position [Left Arm] 02 Sat by Pulse Oximetry 93 L 88 L Oxygen Delivery Method Room Air Room Air Lab Data Lab Results 02/04/24 16:28: WBC 5.2, RBC 4.16 L, Hgb 15.0, Hct 41.6 L, MCV 100.1 H, MCH 36.2 H, MCHC 36.1 H, RDW 13.9, Plt Count 175, MPV 8.2, Neut % (Auto) 66.3, Lymph % (Auto) 24.4, [place] % (Auto) 6.9, Eos % (Auto) 1.4, Baso % (Auto) 1.0, Neut # (Auto) 3.5, Lymph # (Auto) 1.3, [place] # (Auto) 0.4, Eos # (Auto) 0.1, Baso # (Auto) 0.1, Sodium 139, Potassium 3.9, Chloride 103, Carbon Dioxide 33 H, Anion Gap 6.9, BUN 9, Creatinine 0.90, Estimated Creat Clear 62, Estimated GFR 83, Est GFR ( Amer) 101, Glucose 121 H, Lactate 0.9, Calcium 9.0, Total Bilirubin 0.7, AST 31, ALT 22, Alkaline Phosphatase 99, Total Protein 6.5, Albumin 3.9, Globulin 2.6, Albumin/Globulin Ratio 1.5 02/04/24 16:28 02/04/24 16:28 Orders (Tests/Meds): ED MEDICATIONS Generic Name Dose Route Start Last Admin Trade Name Freq PRN Reason Stop Dose Admin Sodium Chloride 10 ml 02/04/24 17:29 02/04/24 17:30 Sodium Chloride 0.9% 10ml Syr (Rad Only) IV 03/05/24 17:28 10 ml NEEDED PRN Administration Maintain IV Site Discontinued Medications Generic Name Dose Route Start Last Admin Trade Name Freq PRN Reason Stop Dose Admin Acetaminophen 1,000 mg 02/04/24 16:22 02/04/24 16:40 Acetaminophen 1,000mg/100ml Vial IV 02/04/24 16:23 1,000 mg ONCE ONE Administration Iopamidol 75 ml 02/04/24 17:29 02/04/24 17:30 Iopamidol-370 (76%);100ml Bottle IV 02/04/24 17:30 75 ml ONCE ONE Administration Morphine Sulfate 4 mg 02/04/24 16:22 02/04/24 16:40 Morphine 4mg/Ml Syringe IV 02/04/24 16:23 4 mg ONCE ONE Administration Ondansetron HCl 4 mg 02/04/24 16:22 02/04/24 16:40 Ondansetron 4mg/2ml Vial IV 02/04/24 16:23 4 mg ONCE ONE Administration ORDERS Category Date Time Status CT abdomen pelvis w con Stat Cat Scan 02/04/24 16:22 Completed CBC w/Auto Diff [Complete Blood Count Auto Diff] Stat Lab 02/04/24 16:28 Completed CMP [Comprehensive Metabolic Panel] Stat Lab 02/04/24 16:28 Completed Lactic Acid Stat Lab 02/04/24 16:28 Completed Medical Decision Narrative: In summary patient is a 68-year-old male with past medical history described above who presents emergency department for evaluation of inguinal swelling and tenderness. Patient is hemodynamically stable nontoxic-appearing upon arrival, afebrile. Differential diagnosis includes direct hernia, indirect hernia, femoral hernia, among others. No concern for aneurysm given that there is no pulsatility or rapidly expanding hematoma. Workup will be conducted with hematologic labs, CT abdomen pelvis with IV contrast. Initial inventions include pain control. Workup reviewed by me, hematologic labs are nonactionable, no SARA or critical electrolyte abnormality. Clinically patient is not obstructed. CT imaging of the abdomen pelvis shows patent vascular graft, no right inguinal hernia, mild enlargement 0.8 cm density in the upper pole of the kidney for which outpatient follow-up was recommended. Given that patient has a reducible hernia clinically he will be referred to surgery on an outpatient basis and will follow-up with his PCP for kidney lesion. Patient is appropriate for discharge at this time. Critical Care Critical Care Time Critical Care Time: No
[2024-02-04] MEDS: MORPHINE 4MG/ML SYRINGE 4 MG IV (16:40)
[2024-02-04] MEDS: ACETAMINOPHEN 1,000MG/100ML VIAL 1000 MG IV (16:40)
[2024-02-04] MEDS: ONDANSETRON 4MG/2ML VIAL 4 MG IV (16:40)
[2024-02-04 16:46] LABS: Basophils # 0.1 K/mm3 (0-0.2); Eosinophils # 0.1 K/mm3 (0.0-0.4); Eosinophils % 1.4 % (0.1-12.0); Hematocrit 41.6 % (42.0-52.0); Lymphocytes # 1.3 K/mm3 (0.7-4.5); Lymphocytes % 24.4 % (10-50); Mean Corpuscular HGB Conc 36.1 g/dL (31.8-35.4); Mean Corpuscular Hemoglobin 36.2 pg (27.0-31.2); Mean Corpuscular Volume 100.1 fl (80-94); Mean Platelet Volume 8.2 fl (7.4-10.4); Monocytes # 0.4 K/mm3 (0.1-1.0); Monocytes % 6.9 % (1.7-9.3); Neutrophils # 3.5 K/mm3 (1.8-7.8); Neutrophils % 66.3 % (37.0-80.0); Platelet Count 175 K/mm3 (142-424); Red Blood Count 4.16 M/mm3 (4.60-6.20); Red Cell Distribution Width 13.9 % (11.5-17.5); White Blood Count 5.2 K/mm3 (4.8-10.8)
[2024-02-04 16:48] LABS: Chloride 103 mmol/L (98-107); Potassium 3.9 mmoL/L (3.5-5.1); Sodium 139 mmol/L (136-145)
[2024-02-04 16:51] LABS: Alanine Aminotransferase 22 U/L (12-78); Albumin Level 3.9 g/dl (3.5-5.0); Albumin/Globulin Ratio 1.5 (1.1-1.8); Alkaline Phosphatase 99 U/L (38-126); Anion Gap 6.9 mEq/L (5-15); Aspartate Amino Transferase 31 U/L (17-59); Bilirubin,Total 0.7 mg/dl (0.2-1.3); Blood Urea Nitrogen 9 mg/dl (9-20); Carbon Dioxide 33 mmol/L (22.0-30.0); Creatinine Clearance Estimated 62 mL/min (50-200); Estimated Glomerular Filt Rate 83 ml/min (>60); GFR (African American) 101 ML/MIN (>60); Globulin 2.6 g/dL (1.3-3.2); Total Protein,Serum 6.5 g/dl (6.3-8.2)
[2024-02-04 16:52] LABS: Glucose 121 mg/dl (74-100)
[2024-02-04 16:53] LABS: Lactic Acid 0.9 mmol/L (0.7-2.1)
--- NOTE | 2024-02-04 17:26 | PC.NURSE ---
PT GONE TO CT
[2024-02-04] MEDS: SODIUM CHLORIDE 0.9% 10ML SYR (RAD ONLY) 10 ML IV (17:30)
[2024-02-04] MEDS: IOPAMIDOL-370 (76%);100ML BOTTLE 75 ML IV (17:30)
== END 2024-02-04 18:34 | disposition home or self-care (01) ==
LOC: UTC 15:08 → ER 16:06
PROVIDERS: Emergency Provider Emergency Medicine; PCP Family Medicine
DX: R10.32 Left lower quadrant pain (principal); K40.90 Unilateral inguinal hernia, without obstruction or gangrene, not specified as recurrent; N28.9 Disorder of kidney and ureter, unspecified; F17.210 Nicotine dependence, cigarettes, uncomplicated; I11.9 Hypertensive heart disease without heart failure; I25.119 Atherosclerotic heart disease of native coronary artery with unspecified angina pectoris; E78.5 Hyperlipidemia, unspecified; Z86.79 Personal history of other diseases of the circulatory system
CPT/HCPCS: 74177; 80053; 83605; 85025; 96374; 96375; 99285; J0131; J2405; Q9967

== ENCOUNTER 2024-03-19 07:22 | Outpatient (CLI) | payer MEDICARE, SELFPAY ==
[2024-03-19 07:29] LABS: Microscopic, Urine URINE MICROSCOPIC (MICROSCOPIC)
[2024-03-19 08:14] LABS: Appearance,Urine CLEAR (Clear); Bilirubin,Urine Negative (Negative); Blood, Urine Negative (Negative); Color,Urine YELLOW (Yellow); Glucose,Urine (UA) Negative (Negative); Ketones,Urine Negative (Negative); Leukocyte Esterase,Urine Negative (Negative); Nitrate,Urine Negative (Negative); Protein,Urine Negative (Negative); Specific Gravity, Urine 1.015 (1.005-1.030); Urobilinogen,Urine 0.2 EU/dl (0.2)
[2024-03-19 08:16] LABS: Basophils % 0.8 % (0.1-2.0); Eosinophils # 0.1 K/mm3 (0.0-0.4); Eosinophils % 2.2 % (0.1-12.0); Hematocrit 42.6 % (42.0-52.0); Hemoglobin 14.8 g/dL (14.1-18.0); Lymphocytes # 1.5 K/mm3 (0.7-4.5); Lymphocytes % 30.6 % (10-50); Mean Corpuscular HGB Conc 34.8 g/dL (31.8-35.4); Mean Corpuscular Hemoglobin 35.6 pg (27.0-31.2); Mean Corpuscular Volume 102.3 fl (80-94); Mean Platelet Volume 8.3 fl (7.4-10.4); Monocytes # 0.4 K/mm3 (0.1-1.0); Monocytes % 8.1 % (1.7-9.3); Neutrophils # 2.8 K/mm3 (1.8-7.8); Neutrophils % 58.4 % (37.0-80.0); Platelet Count 171 K/mm3 (142-424); Red Blood Count 4.17 M/mm3 (4.60-6.20); Red Cell Distribution Width 13.6 % (11.5-17.5); White Blood Count 4.8 K/mm3 (4.8-10.8)
[2024-03-19 09:37] LABS: Alanine Aminotransferase 18 U/L (12-78); Albumin Level 3.8 g/dl (3.5-5.0); Albumin/Globulin Ratio 1.7 (1.1-1.8); Alkaline Phosphatase 88 U/L (38-126); Aspartate Amino Transferase 30 U/L (17-59); Bilirubin,Total 0.9 mg/dl (0.2-1.3); Blood Urea Nitrogen 13 mg/dl (9-20); Calcium 9.1 mg/dl (8.4-10.2); Carbon Dioxide 34 mmol/L (22.0-30.0); Chloride 98 mmol/L (98-107); Estimated Glomerular Filt Rate 96 ml/min (>60); GFR (African American) 116 ML/MIN (>60); Globulin 2.2 g/dL (1.3-3.2); Glucose 140 mg/dl (74-100); Sodium 136 mmol/L (136-145)
== END 2024-03-19 23:59 | disposition home or self-care (01) ==
LOC: LAB 07:23
PROVIDERS: PCP Family Medicine; Visit Provider Surgery
DX: R10.31 Right lower quadrant pain (principal)
CPT/HCPCS: 36415; 80053; 81001; 85025

== ENCOUNTER 2024-03-24 10:24 | Day surgery (SDC) | payer MEDICARE, SELFPAY ==
[2024-03-21 09:33] VITALS: BMI 19.0
[2024-03-24] VITALS (10 sets, daily range): BP systolic 92–145; BP diastolic 54–84; PULSE 61–84; RESP 14–24; TEMP 36.1–37.1; O2SAT 92–98
--- NOTE | 2024-03-24 11:30 | P.PNANES_ITS ---
[facility] Disclaimer: The information contained in this section may have been updated after the patient was seen, as this information can be updated by other users. Medical History Hx of myocardial infarction Hx of aortic aneurysm History of prostate cancer Encounter for pre-operative cardiovascular clearance Tobacco dependence syndrome Cardiomyopathy Dyspnea Abnormal EKG Sinus bradycardia Atypical angina Colonoscopy refused Pneumococcal vaccination declined by patient Low back pain radiating to left leg CAD (coronary artery disease) Hyperlipidemia BPH (benign prostatic hyperplasia) Arthritis Essential hypertension Surgical History History of coronary artery stent placement History of elbow surgery History of AAA (abdominal aortic aneurysm) repair History of cholecystectomy History of colonoscopy History of lumbar discectomy Family History Other No significant family history Social History Smoking Status: Current every day smoker tobacco type: cigarettes packs per day: 1 alcohol intake: never substance use type: denies use current occupational status: retired Travel in the last 8 weeks: None household members: spouse housing: house current occupational exposures/hazards: No caffeine: Yes [facility] Anesthesia Checklist Patient Identification Patient Identification: Arm Band and Verbal (Name & ) Structural Data Admitted From: Home Planned Operative Procedure/s: Open right inguinal hernia repair Consent for Planned Operative Procedure(s) Verified: Yes Verified Documents: Surgical Consent and History and Physical NPO Status Verified Time NPO: 00:00 Chart Verification Results Verified: CBC and BMP Additional verifications Anesthesia Reactions: No Hx Blood Transfusions: No Blood Transfusion Reaction: No Airway Assessment Mallampati Score:: Class II C-Spine Mobility Assessed: Yes TMJ Mobility Assessed: Yes Dentition: Dentures-poor fitting Neurological Assessment Level of Consciousness: Awake Hx Seizures: No Numbness or tingling in extremities: Yes (Fingers) Anesthesia Plan Anesthesia Risk discussed: Yes Anesthesia Plan: Verified ASA Class: III Anesthesia Type: General
--- NOTE | 2024-03-24 14:00 | EXP.OP.NOTE ---
Date of procedure: 03/24/24 Pre-op Diagnosis:: Right inguinal hernia Post-op Diagnosis:: Same Procedure performed:: Open right inguinal hernia repair with placement of Bard prefix onlay mesh without plug Surgeon:: Carlos Loera MD [employer]INE OPERATOR HELPER:: Miles Polanco Anesthesia: GETA Estimated blood loss (mL): 15 Operative findings:: He had evidence of direct hernia as well as indirect hernia characterized by attenuated hernia sac and cord lipoma . Operative note:: Patient was taken the operating room. He was positioned in a supine position. General anesthesia was induced. Trevizo catheter was placed. Abdomen and perineum were prepped and draped in the standard surgical fashion. Oblique incision was made in the right inguinal area superior to landmarks identifying the inguinal ligament. Dissection was carried down through subcutaneous tissues and Arben's fascia down to the external oblique muscle. There was some scar tissue mostly along the shelving edge of the inguinal ligament from previous tunneling of aortobifemoral bypass. Some Metzenbaum dissection was used to clean this free. The external oblique muscle was then opened along the length of its fibers. There was some scar tissue likely from prior surgery. Careful dissection was carried out. Ultimately apparent ilioinguinal nerve was identified. There was some dense scar tissue to the cord and to the external oblique muscle. This was carefully dissected free and the nerve was preserved. The cord structures were encircled with a [place]a drain. There was noted to be direct hernia. Dissection was carried out and there was cord lipoma which was dissected free and excised. There was a very thin attenuated hernia sac which was dissected down to the internal ring. However inspection within the internal ring revealed evidence of probable cecum. The hernia sac was not opened. It was reduced below the internal ring to its normal anatomical position. Plan was then made for repair with onlay mesh. Medium size Bard prefix mesh plug with onlay mesh was brought onto the field. Mesh plug was not utilized. The onlay mesh was secured to Damian's ligament and the shelving edge of the inguinal ligament with a running 2-0 PDS suture. It is secured superior medially to transversalis muscle fascia with several interrupted 2-0 PDS horizontal mattress sutures and some simple interrupted sutures. Nerve was returned to the normal anatomic position. The 2 leaves of the mesh were used to encircle the cord structures and ring and sutured to 1 another with several interrupted 2-0 PDS sutures to reconstruct the internal ring. Cord structures were then returned to normal anatomic position. Wound was irrigated. Local anesthetic was infiltrated. External oblique muscle was closed over the cord structures with a running 2-0 Vicryl. Arben's fascia was closed with running 2-0 Vicryl. Skin was closed with 4-0 Monocryl in a running subcuticular fashion. Condition: stable Disposition: PACU Complications:: None immediately apparent
--- NOTE | 2024-03-24 14:13 | P.PNANES_ITS ---
[facility] Anesthesia Record Part I Anesthesia Record I Intake, IV Amount: 1,000 Hydration: Adequate Estimated blood loss (mL): 25 Urine output (mL): 50 Blood Pressure: 92/60 SaO2: 96 Pulse Rate: 71 Airway Patency: Patent Respiratory Rate: 24 Temperature: 98.7 F Patient is:: Drowsy Stable to PACU at:: 14:10
[2024-03-24 14:16] LABS: Microscopic,Cath URINE MICROSCOPIC (MICROSCOPIC)
[2024-03-24 14:34] LABS: Appearance,Urine/Cath CLEAR (Clear); Bilirubin,Cath Negative (Negative); Blood, Urine/Cath Negative (Negative); Color,Urine/Cath YELLOW (Yellow); Glucose,Urine/Cath (UA) Negative (Negative); Ketones,Urine/Cath Negative (Negative); Leukocyte Esterase,Cath Negative (Negative); Nitrate,Cath Negative (Negative); PH,Urine/Cath 6.5 (5.0-8.5); Protein,Urine/Cath 1+ (Negative); Specific Gravity, Urine/Cath 1.025 (1.005-1.030)
[2024-03-24 14:57] LABS: Bacteria,Urine/Cath TRACE /lpf; Squamous Epithelial Ur./Cath Occasional #/hpf (0-5)
--- NOTE | 2024-03-24 15:18 | P.PNANES_ITS ---
[facility] Anesthesia Record Part II Anesthesia Record Part II Discharge Time: 14:50 Destination: Surgical Day Care (OP Surgery) PACU nurse assessment reviewed?: Yes Patient Condition:: Good Anesthesia Complications:: None Swallowing reflex intact?: Yes Airway Patency: Patent Cyanosis?: No Blood Pressure: 96/78 SaO2: 92 Respiratory Rate: 20 Pulse Rate: 78 Temperature: 97 F Mental Status: Alert & Oriented Pain level:: 0 Nausea and/or vomitting:: None Intake, IV Amount: 0 Hydration: Adequate
== END 2024-03-24 15:29 | disposition home or self-care (01) ==
PROVIDERS: PCP Family Medicine; Visit Provider Surgery
PROC: (CPT 49505; principal; 2024-03-24 12:15)
DX: K40.90 Unilateral inguinal hernia, without obstruction or gangrene, not specified as recurrent (principal); D17.6 Benign lipomatous neoplasm of spermatic cord
CPT/HCPCS: 49505; 81001; 96374; J3490; J2250; J2405; J3010; J7120

== ENCOUNTER 2024-06-16 10:02 | Outpatient (CLI) | payer MEDICARE, SELFPAY ==
[2024-06-16 20:39] LABS: Prostate Specific Ag, Diagnost 2.03 ng/ml (0.0-4.0)
== END 2024-06-16 23:59 | disposition home or self-care (01) ==
LOC: LAB.DROPOF 06-17 10:03
PROVIDERS: PCP Family Medicine; Visit Provider Family Medicine
DX: R97.20 Elevated prostate specific antigen [PSA] (principal)
CPT/HCPCS: 84153

== ENCOUNTER 2025-03-16 09:58 | Outpatient (CLI) | payer MEDICARE, SELFPAY ==
[2025-03-16 19:01] LABS: Basophils % 0.9 % (0.1-2.0); Eosinophils % 0.9 % (0.1-12.0); Hematocrit 43.7 % (42.0-52.0); Hemoglobin 13.1 g/dL (14.1-18.0); Immature Granulocytes # 0.01 10^3uL; Immature Granulocytes % 0.2 %; Lymphocytes # 1.3 K/mm3 (0.7-4.5); Mean Corpuscular Volume 89.9 fl (80-94); Mean Platelet Volume 11.1 fl (7.4-10.4); Monocytes # 0.6 K/mm3 (0.1-1.0); Monocytes % 12.7 % (1.7-9.3); Neutrophils # 2.4 K/mm3 (1.8-7.8); Neutrophils % 56.3 % (37.0-80.0); Nucleated Red Blood Cells # 0 10^3/uL; Nucleated Red Blood Cells % 0 %; Platelet Count 204 K/mm3 (142-424); Red Blood Count 4.86 M/mm3 (4.60-6.20); White Blood Count 4.3 K/mm3 (4.8-10.8)
[2025-03-16 19:50] LABS: Albumin Level 3.9 g/dl (3.5-5.0); Chloride 96 mmol/L (98-107)
[2025-03-16 19:51] LABS: Potassium 4.2 mmoL/L (3.5-5.1); Sodium 137 mmol/L (136-145)
[2025-03-16 19:53] LABS: Alanine Aminotransferase 16 U/L (12-78); Albumin/Globulin Ratio 1.6 (1.1-1.8); Alkaline Phosphatase 107 U/L (38-126); Anion Gap 13.2 mEq/L (5-15); Aspartate Amino Transferase 23 U/L (17-59); Bilirubin,Total 0.6 mg/dl (0.2-1.3); Blood Urea Nitrogen 5 mg/dl (9-20); Carbon Dioxide 32 mmol/L (22.0-30.0); Estimated Glomerular Filt Rate 111 ml/min (>60); GFR (African American) 135 ML/MIN (>60); Globulin 2.5 g/dL (1.3-3.2); Total Protein,Serum 6.4 g/dl (6.3-8.2)
[2025-03-16 19:54] LABS: Calcium 8.7 mg/dl (8.4-10.2); Chol/HDL Ratio 2.4 (1-3.5); Cholesterol 156 mg/dl (140-200); Glucose 103 mg/dl (74-100); HDL Cholesterol 64 mg/dl (40-60); Triglycerides 60 mg/dl (30-150); VLDL Cholesterol 12 mg/dL (0-40)
[2025-03-16 20:40] LABS: Prostate Specific Ag Screen 2.3 ng/ml (0.0-4.0)
--- OUTSIDE RECORDS SUMMARY | 2025-03-24 11:22 | XMS_ITS | Continuity of Care Document ---
Author Organization [facility] Address [address] [place] [address] Phone Care Team Providers Care Wire Harness Assembler Name Role Phone Valerio Zayas MD Primary Care Provider [phone] Encounters Date Type Department Care Team Description 02/14/2024 Travel 02/14/2024 12:24 PM EDT - 02/14/2024 3:06 PM EDT Emergency [facility] [place] [id number] Isacc Greco MD Walters, Kyle A, MD Right inguinal hernia (Primary Dx) Discharge Disposition: Home or Self Care 07/24/2022 Travel 07/24/2022 10:30 AM EST Office Visit [facility] [address] [facility] [address] [place] [address] Jeramy Calhoun PA-C Abdominal aortic aneurysm (AAA) without rupture, unspecified part (Primary Dx); S/P AAA repair; S/P aorto-bifemoral bypass surgery; Femoral artery aneurysm, right; Cigarette nicotine dependence with other nicotine-induced disorder; PAD (peripheral artery disease); Incisional hernia, without obstruction or gangrene 07/24/2022 8:19 AM EST - 07/24/2022 11:59 PM EST Hospital Encounter [facility] [address] [place], [place] [id number] Jeramy Calhoun PA-C AAA (abdominal aortic aneurysm) without rupture; S/P AAA repair Discharge Disposition: Home or Self Care 07/24/2022 8:15 AM EST - 07/24/2022 8:18 AM EST Hospital Encounter [facility] [address] [place] [address] [address] [place] [address] Jeramy Calhoun PA-C Femoral artery aneurysm, right Discharge Disposition: Home or Self Care 06/13/2022 Telephone [facility] [address] [facility] [address] [place] [address] Ricky Tomlin MD Reschedule 10/05/2021 Travel 10/05/2021 12:00 PM EST Office Visit [facility] [address] [facility] [address] [place] [address] Jeramy Calhoun PA-C AAA (abdominal aortic aneurysm) without rupture (Primary Dx); S/P AAA repair; Femoral artery aneurysm, right; Cigarette nicotine dependence with other nicotine-induced disorder 10/05/2021 9:21 AM EST - 10/05/2021 11:59 PM EST Hospital Encounter [facility] [address] [place] [address] Jeramy Calhoun PA-C PVD (peripheral vascular disease) Discharge Disposition: Home or Self Care 10/05/2021 9:21 AM EST - 10/05/2021 11:59 PM EST Hospital Encounter [facility] [address] [place] [address] Jreamy Calhoun PA-C AAA (abdominal aortic aneurysm) without rupture; S/P AAA repair Discharge Disposition: Home or Self Care 02/28/2021 Telephone [facility] [address] [place] [address] [address] [place] [address] Annel Nick RMA Orders (Patient requesting that Dr. Tomlin cancel an order for home oxygen) 02/04/2021 Travel 02/04/2021 12:00 PM EDT Office Visit [facility] [address] [facility] [address] [place] [address] Jeramy Calhoun PA-C AAA (abdominal aortic aneurysm) without rupture (Primary Dx); S/P AAA repair; PVD (peripheral vascular disease) 01/12/2021 5:31 AM EDT - 01/21/2021 4:19 PM EDT Hospital Encounter [facility] [address] [place] [address] [place] [address] Ricky Tomlin MD Abdominal aortic aneurysm (AAA) without rupture Discharge Disposition: Home or Self Care 01/14/2021 10:34 AM EDT Anesthesia Event [facility]G PERIOP [facility] [place] [address] Rylie Shipman MD Braxton-Brown Anyi, MOLDING LINE OPERATOR 01/14/2021 9:35 AM EDT - 01/14/2021 2:00 PM EDT Surgery EDG [facility] [place] [address] Ricky Tomlin MD POSTOP BLEEDING CONTROL (UNSPEC) 01/12/2021 Travel 01/12/2021 8:00 AM EDT - 01/12/2021 12:30 PM EDT Surgery EDG [facility] [place] [address] Ricky Tomlin MD ABDOMINAL AORTIC OR ILIAC ANEURYSM REPAIR (COVERS ENDARTERECTOMY AND RENAL BYPASS) 01/12/2021 7:58 AM EDT Anesthesia Event EDG [facility] [place] [address] Polly George MD Powell, Jeanne, MOLDING LINE OPERATOR 12/28/2020 Travel 12/28/2020 10:09 AM EDT - 12/28/2020 11:59 PM EDT Hospital Encounter [facility]G PRE-ADMIT TESTING [facility] [place] [address] Preop testing (Primary Dx); Abdominal aortic aneurysm (AAA) without rupture Discharge Disposition: Home or Self Care 12/27/2020 Travel 12/10/2020 Travel 11/29/2020 Telephone [facility] [address] [place] [address] Nani Bentley RMA Procedure (open AAA with Dr. Tomlin ) 11/26/2020 Travel 11/26/2020 11:40 AM EST Office Visit [facility] [address] [place] [address] Ricky Tomlin MD Abdominal aortic aneurysm (AAA) without rupture (Primary Dx); Smoking; Essential hypertension; Moderate mixed hyperlipidemia not requiring statin therapy; Iliac artery occlusion, left (HCC); Coronary artery disease involving salamatof coronary artery of salamatof heart without angina pectoris 11/04/2020 Telephone [facility] [address] [facility] [address] [place] [phone] Nani Bentley, CHIKIS Other (request for imaging disk ) 05/23/2002 12:31 PM EDT - 05/23/2002 3:34 PM EDT Hospital Encounter [facility]ST 4C2 Zachariah Ruiz 02/16/2002 10:22 AM EDT - 02/16/2002 11:59 PM EDT Hospital Encounter HST LAB GRT Abdirashid Cazares MD 09/17/2001 5:01 PM EST - 09/21/2001 10:00 AM EST Hospital Encounter [facility] Generic, Historical Provider 09/13/2001 1:46 PM EST - 09/13/2001 2:32 PM EST Emergency [facility]ST EPIC CON UNK GRT Sameer Vale III, MD 09/10/2001 4:03 PM EST - 09/10/2001 4:37 PM EST Emergency HST EPIC CON UNK GRT Vivek Jacobo DO 06/17/2001 12:01 AM EDT - 07/17/2001 11:59 PM EST Hospital Encounter HST LAB [facility] 06/09/2001 4:31 PM EDT - 06/16/2001 11:59 PM EDT Hospital Encounter HST LAB [facility] Allergies Active Allergy Reactions Criticality Noted Date Comments Cyclobenzaprine Swelling High 03/02/2020 Medications aspirin 81 mg Oral Tablet, Delayed Release (E.C.) Take 81 mg by mouth daily. Active multivitamin (THERAGRAN) Oral Tablet Take 1 Tab by mouth daily. Active atorvastatin (LIPITOR) 40 mg Oral Tablet Take 40 mg by mouth daily. 02/12/2020 Active bisoproloL-hydro chlorothiazide (ZIAC) 2.5-6.25 mg Oral Tablet Take 1 Tab by mouth nightly. Active dicyclomine (BENTYL) 20 mg Oral Tablet Take 20 mg by mouth 3 times daily. 10/07/2020 Active doxazosin (CARDURA) 4 mg Oral Tablet Take 4 mg by mouth nightly. 10/20/2020 Active lisinopriL (PRINIVIL;ZESTRI L) 2.5 mg Oral Tablet Take 2.5 mg by mouth daily. 11/02/2020 Active nitroGLYCERIN (NITROSTAT) 0.4 mg SL Tablet, Sublingual Place 0.4 mg under the tongue as needed. 10/20/2020 Active tamsulosin (FLOMAX) 0.4 mg Oral Capsule Take 0.4 mg by mouth daily. 10/07/2020 Active clopidogreL (PLAVIX) 75 mg Oral Tablet Take 75 mg by mouth daily. Active albuterol (PROVENTIL HFA;VENTOLIN HFA) 90 mcg/actuation Inhl HFA Aerosol Inhaler Inhale 2 Puffs into the lungs every 6 hours as needed for Wheezing. 1 Inhaler 01/21/2021 Active oxyCODONE-acetam inophen (PERCOCET) 5-325 mg Oral Tablet Take 1 Tablet by mouth as needed. 09/29/2021 Active Active Problems Problem Noted Date Diagnosed Date Pleural effusion, bilateral 01/20/2021 Acute respiratory failure with hypoxia Dyspnea 01/19/2021 Tobacco abuse 01/19/2021 Tobacco abuse counseling 01/19/2021 Postoperative hemorrhage inv olving circulatory system following circulatory system procedure 01/14/2021 Abdominal aortic aneurysm (AAA) without rupture 11/29/2020 Overview (11/29/2020): Added automatically from request for surgery [id number] Essential hypertension 11/26/2020 Moderate mixed hyperlipidemia not requiring stat in therapy 11/26/2020 Iliac artery occlusion, left 11/26/2020 Coronary artery disease invo lving salamatof coronary artery of salamatof heart without angina pectoris 11/26/2020 Hemorrhagic shock Coagulopathy Family History Medical History Relation Name Comments Heart Disease Brother Multiple sclerosis Sister Anesth Problems Neg Hx Relation Name Status Comments Brother Sister Social History Smoking Status as of 03/24/2025 Tobacco Use Types Packs/Day Years Used Date Smoking Tobacco: Never Assessed Sex and Gender Information Value Date Recorded Sex Assigned at Not on file Legal Sex Male 5:27 AM EDT Gender Identity Not on file Sexual Orientation Not on file Last Filed Vital Signs Vital Sign Reading Time Taken Comments Blood Pressure 131/79 02/14/2024 12:26 PM EDT Pulse 52 02/14/2024 1:06 PM EDT Temperature 36.3 C (97.4 F) 02/14/2024 12:26 PM EDT Respiratory Rate 19 02/14/2024 1:06 PM EDT Oxygen Saturation 94% 02/14/2024 1:06 PM EDT Inhaled Oxygen Concentration - - Weight 63 kg (138 lb 12.8 oz) 02/14/2024 12:26 P M EDT Height 182.9 cm (6') 02/14/2024 12:26 PM EDT Body Mass Index 18.82 02/14/2024 12:26 PM EDT Plan of Treatment Not on file Medical Devices Implanted Type Area Lobby Concierge Device Identifier Shelf Expiration Date Model / Serial / Lot Graft 18x9mm Grtx Std/Tw Trnk/Lmb 40cm [id number] Implanted:Qty: 1 on 01/12/2021 by Ricky Tomlin MD at [facility] N/A: Aorta [employer] [id number] 10/11/2025 [id number] / [id number] / Procedures Procedure Name Priority Date/Time Associated Diagnosis Comments CT ABD PEL ED FAST W CONTRAST STAT 02/14/2024 1:56 PM EDT BASIC METABOLIC PANEL STAT 02/14/2024 1:05 PM EDT CBC WITH DIFF STAT 02/14/2024 1:05 PM EDT VA US LOWER EXTREMITY ARTERIAL DUPLEX COMPLETE Routine 07/24/2022 9:03 AM EST Femoral artery aneurysm, right VA US AORTA ILIAC IVC COMPLETE Routine 07/24/2022 8:38 AM EST AAA (abdominal aortic aneurysm) without rupture S/P AAA repair VA US LOWER EXTREMITY ARTERIAL DUPLEX COMPLETE Routine 10/05/2021 2:54 PM EST PVD (peripheral vascular disease) VA US AORTA ILIAC IVC COMPLETE Routine 10/05/2021 2:34 PM EST AAA (abdominal aortic aneurysm) without rupture S/P AAA repair SCANNED LABS 01/22/2021 6:11 AM EDT GLUCOSE METER POC Routine 01/21/2021 1:44 PM EDT EC ECHOCARDIOGRAM COMPLETE W DOPPLER AND COLOR FLOW MAPPING Routine 01/21/2021 11:35 AM EDT GLUCOSE METER POC Routine 01/21/2021 7:50 AM EDT ECG AND WAVEFORMS - TELEMETRY Routine 01/21/2021 7:04 AM EDT COMPREHENSIVE METABOLIC PANEL Timed 01/21/2021 5:48 AM EDT GLUCOSE METER POC Routine 01/20/2021 8:21 PM EDT ECG AND WAVEFORMS - TELEMETRY Routine 01/20/2021 6:58 PM EDT GLUCOSE METER POC Routine 01/20/2021 1:41 PM EDT GLUCOSE METER POC Routine 01/20/2021 8:31 AM EDT PLATELET COUNT Timed 01/20/2021 8:01 AM EDT COMPREHENSIVE METABOLIC PANEL Timed 01/20/2021 8:01 AM EDT ECG AND WAVEFORMS - TELEMETRY Routine 01/20/2021 7:00 AM EDT GLUCOSE METER POC Routine 01/19/2021 8:27 PM EDT ECG AND WAVEFORMS - TELEMETRY Routine 01/19/2021 7:01 PM EDT GLUCOSE METER POC Routine 01/19/2021 5:05 PM EDT XR CHEST PA AND LATERAL BISI 01/19/2021 2:20 PM EDT GLUCOSE METER POC Routine 01/19/2021 11:38 AM EDT CBC WITH DIFF Routine 01/19/2021 9:55 AM EDT GLUCOSE METER POC Routine 01/19/2021 7:51 AM EDT ECG AND WAVEFORMS - TELEMETRY Routine 01/19/2021 7:00 AM EDT NT PROBNP Add-On 01/19/2021 5:28 AM EDT COMPREHENSIVE METABOLIC PANEL Timed 01/19/2021 5:28 AM EDT GLUCOSE METER POC Routine 01/18/2021 8:49 PM EDT ECG AND WAVEFORMS - TELEMETRY Routine 01/18/2021 8:37 PM EDT ECG AND WAVEFORMS - TELEMETRY Routine 01/18/2021 7:05 PM EDT GLUCOSE METER POC Routine 01/18/2021 5:41 PM EDT IP CONSULT TO HOSPITALIST Routine 01/18/2021 3:24 PM EDT Procedure Note - Apollo Lopez DO - 01/19/2021 10:49 AM EDTThis note is in progress. [facility] History and Physical Name: Drew Aiken : 1955 AGE: 65 y.o. PCP: No primary care provider on file. Admitting Physician: Apollo Lopez DO Date of Admit: 01/12/2021 Chief Complaint: Dyspnea History of Present Illness: Mr. Aiken is a 65yo male with PMHx of CAD s/p stenting, HLD, HTN, maculardegeneration, and current everyday smoker (1.5ppd x50 years) who wasadmitted 01/12 for surgical treatment of AAA s/p AAA repair withAorto-bifemoral bypass, s/p reexploration for bleed this admission. We areconsulted for dyspnea. Patient reports feeling dyspneic since 2019. Does not feelacutely different than normal dyspnea. However, he is now requiring O2,which he does not wear at home. Current everyday smoker. Denies previousPFTs or diagnosis of COPD. No home inhaler use. Plans to quit smoking whenout of the hospital. Endorses cough with clear phlegm which is unchangedsince Fall 2019. Denies fevers, chills, hemoptysis. Past Medical History: Diagnosis Date Arthritis CAD (coronary artery disease) STEVENS (dyspnea on exertion) Heart attack (HCC) 03/17/2012 Hyperlipidemia Hypertension Macular degeneration Prostate disorder enlarged TIA (transient ischemic attack) 1999 Past Surgical History: Procedure Laterality Date ABDOMINAL AORTIC ANEURYSM REPAIR, OPEN N/A 01/12/2021 Open repair of abdominal aortic aneurysm ; Surgeon: Ricky Tomlin MD; Location: [facility] MAIN OR; Service: Vascular BACK SURGERY 04/04/1990 CARDIAC SURGERY Heart catheter CHOLECYSTECTOMY 07/16/2021 ELBOW SURGERY Left 05/18/1985 REPAIR ANEURYSM, ABDOMINAL AORTA VASCULAR SURGERY @prior to admission medications@ Allergies Allergen Reactions Cyclobenzaprine Swelling Social History Socioeconomic History Marital status: Spouse name: None Number of children: None Years of education: None Highest education level: None Tobacco Use Smoking status: Current Every Day Smoker Packs/day: 1.00 Types: Cigarettes Smokeless tobacco: Never Used Substance and Sexual Activity Alcohol use: Yes Comment: Occasionally Drug use: Never Family History Problem Relation Age of Onset Other (Multiple sclerosis) Sister Heart Disease Brother Anesth Problems Neg Hx Review of Systems: The listed systems were reviewed and reveal thefollowing in addition to any already discussed in the HPI: Constitutional: No fever, chills, or weight loss Eyes: + visual disturbance with MD HEENT: No headache, hearing loss, epistaxis, sore throat, orhoarseness Lungs: + SOB, cough; no hemoptysis, or pleuritic chest pain Cardiovascular: No chest pain, PND, orthopnea, +STEVENS Endocrine: No polyuria, polydypsia, or polyphagia GI: + abdominal pain (recent surgery), no nausea, vomiting,hematemesis, diarrhea, constipation, melena, hematochezia, or bright redblood per rectum : No dysuria, frequency, hesitancy, or hematuria Musculoskeletal: No myalgias or muscle weakness Neurologic: No focal weakness Skin: No edema, jaundice, or skin discoloration Psychiatric: No depression, anxiety Hematologic/Allergic: No history of bleeding or easy bruising, noclots OBJECTIVE: Physical Exam: Vitals: 01/19/21 1005 BP: Pulse: 83 Resp: 18 Temp: SpO2: Weight: 154 lb 5.2 oz (70 kg) Constitutional: Well developed, adequently nourished, no acute distress,non-toxic appearance. NC in place. Eyes: PERRL, conjunctiva normal, sclera clear HEENT: Atraumatic,mouth moist, no thrush Neck- normal range of motion, no tenderness, supple no LA TM JVD Respiratory: No respiratory distress, breath sounds diminishedthroughout, no rales, no wheezing Cardiovascular: Normal rate, normal rhythm, no murmurs, no gallops, norubs GI: Soft, mildly distended, + bowel sounds, mildly tender no mass, norebound, no guarding :not examined Musculoskeletal: No edema, no tenderness, no deformities. Integument: Adequatly hydrated, no rash Lymphatic: No lymphadenopathy noted Neurologic: Alert & oriented x 3, moving all 4 limbs equally no grossfocal deficits noted Psychiatric: Speech and behavior appropriate Labs: CBC: Lab Results Component Value Date WBC 8.0 01/19/2021 RBC 2.74 (L) 01/19/2021 HGB 9.2 (L) 01/19/2021 HGB 10.2 (L) 01/12/2021 HCT 27.8 (L) 01/19/2021 HCT 30 (L) 01/12/2021 MCV 101.5 (H) 01/19/2021 MCHC 33.1 01/19/2021 RDW 14.6 01/19/2021 MPV 11.3 01/19/2021 BMP: Lab Results Component Value Date NA 140 01/19/2021 NA 142 01/12/2021 K 3.7 01/19/2021 K 3.9 01/12/2021 CL 103 01/19/2021 CO2 31 (H) 01/19/2021 BUN 13 01/19/2021 CREATININE 0.76 01/19/2021 CALCIUM 8.0 (L) 01/19/2021 GFRAFRAM 109 01/19/2021 GFRNONAFRAM 94 01/19/2021 GLU 109 (H) 01/19/2021 GLU 173 (H) 01/12/2021 Hepatic: Lab Results Component Value Date ALKPHOS 80 01/19/2021 ALT 23 01/19/2021 AST 28 01/19/2021 PROT 4.7 (L) 01/19/2021 LABBILI 1.0 01/19/2021 No results found for: AMYLASE, LIPASE U/A:No results found for: SPECGRAV, UAPROTEIN, BLOODU, NITRITE,LEUKOCYTESUR, WBCUA, RBCUA Coagulation: No results found for: INR, APTT Cardiac markers: No results found for: CKMB, MYOGLOBIN ABGs: Lab Results Component Value Date PH 7.32 (L) 01/13/2021 PH 7.304 (L) 01/12/2021 PCO2 48 (H) 01/13/2021 PO2 59 (L) 01/13/2021 HCO3 24.1 01/13/2021 TCO2 24 01/13/2021 BASEEXCESS -1.4 01/13/2021 O2SAT 89.2 (L) 01/13/2021 INSPIREDO2 5L 01/13/2021 Radiology: No results found. No results found for this or any previous visit. All Radiology/Labs/EKG's/Cardiac testing reviewed. Active Hospital Problems Diagnosis *Abdominal aortic aneurysm (AAA) without rupture (HCC) Dyspnea Tobacco abuse Tobacco abuse counseling Postoperative hemorrhage involving circulatory system followingcirculatory system procedure Hemorrhagic shock (HCC) Coagulopathy (HCC) Coronary artery disease involving salamatof coronary artery of salamatof heartwithout angina pectoris Essential hypertension Iliac artery occlusion, left (HCC) Moderate mixed hyperlipidemia not requiring statin therapy Admission Assessment and Plan: Dyspnea/Suspected COPD: -Suspect underlying COPD, though patient denies prior diagnosis. Feelslike it is essentially unchanged since fall 2019. Now requiringsupplemental O2. -Denies prior PFTs -Continues to smoke daily, 1.5ppd for about fifty years. Plans to quit. -Titrate O2 for saturation 88-92% -Encourage IS, BD -Mucinex -Check CXR -Respiratory assess and treat -Recommend o/p PFTs Tobacco Abuse: -Current everyday smoker 1.5ppd x50 years -Plans to quit on discharge ->7 minutes spent counseling and educating patient on cessation AAA without rupture: -s/p A/o bifemoral bypass this admission -s/p reexploration for bleed this admission -Stable -Per vascular CAD: -Stable Essential HTN: -BP at goal 01/19 -Home medications currently held -Continue to monitor HLD: -Statin Hemorrhagic Shock: -Resolved, s/p ICU stay this admission Acute Blood Loss Anemia: -In setting of above -Hgb stable 01/19, continue to monitor Bloating: -Reports has been an issue with him prior to admission. Notes after eatingcertain foods/drinks. Worse with soda. -Discussed cutting soda out of diet to help with sx today -Rocco Lopez DO 01/19/2021 11:12 AM >70 minutes spent on evaluation and admission including, but not limitedto reviewing the patient's PMHx, PSH, PFH, allergies, medication list,nurse and specialist notes, labs and tests, old and recent medicalrecords, and time spent reviewing appropriate information and plans withthe patient and/or specified family. Relevant information was discoveredand affected the care of the patient. GLUCOSE METER POC Routine 01/18/2021 10:54 AM EDT ECG AND WAVEFORMS - TELEMETRY Routine 01/18/2021 7:34 AM EDT GLUCOSE METER POC Routine 01/18/2021 6:03 AM EDT PLATELET COUNT Timed 01/18/2021 5:59 AM EDT COMPREHENSIVE METABOLIC PANEL Timed 01/18/2021 5:59 AM EDT GLUCOSE METER POC Routine 01/17/2021 8:21 PM EDT ECG AND WAVEFORMS - TELEMETRY Routine 01/17/2021 7:00 PM EDT GLUCOSE METER POC Routine 01/17/2021 5:51 PM EDT ECG AND WAVEFORMS - TELEMETRY Routine 01/17/2021 4:36 PM EDT [facility] LOWER EXTREMITY ARTERIAL DUPLEX COMPLETE STAT 01/17/2021 2:23 PM EDT GLUCOSE METER POC Routine 01/17/2021 9:53 AM EDT ECG AND WAVEFORMS - TELEMETRY Routine 01/17/2021 7:00 AM EDT GLUCOSE METER POC Routine 01/17/2021 6:39 AM EDT COMPREHENSIVE METABOLIC PANEL Timed 01/17/2021 6:04 AM EDT ECG AND WAVEFORMS - TELEMETRY Routine 01/17/2021 12:03 AM EDT ECG AND WAVEFORMS - TELEMETRY Routine 01/16/2021 10:18 PM EDT GLUCOSE METER POC Routine 01/16/2021 8:43 PM EDT ECG AND WAVEFORMS - TELEMETRY Routine 01/16/2021 7:00 PM EDT GLUCOSE METER POC Routine 01/16/2021 4:39 PM EDT GLUCOSE METER POC Routine 01/16/2021 12:33 PM EDT GLUCOSE METER POC Routine 01/16/2021 8:11 AM EDT GLUCOSE METER POC Routine 01/16/2021 5:13 AM EDT COMPREHENSIVE METABOLIC PANEL Timed 01/16/2021 4:17 AM EDT GLUCOSE METER POC Routine 01/16/2021 1:03 AM EDT GLUCOSE METER POC Routine 01/15/2021 9:03 PM EDT COMPREHENSIVE METABOLIC PANEL Routine 01/15/2021 6:23 PM EDT GLUCOSE METER POC Routine 01/15/2021 5:13 PM EDT GLUCOSE METER POC Routine 01/15/2021 1:36 PM EDT GLUCOSE METER POC Routine 01/15/2021 9:38 AM EDT GLUCOSE METER POC Routine 01/15/2021 6:17 AM EDT CBC Routine 01/15/2021 4:57 AM EDT GLUCOSE METER POC Routine 01/15/2021 12:56 AM EDT GLUCOSE METER POC Routine 01/14/2021 8:45 PM EDT GLUCOSE METER POC Routine 01/14/2021 4:07 PM EDT GLUCOSE METER POC Routine 01/14/2021 1:09 PM EDT CALCIUM, IONIZED STAT 01/14/2021 12:13 PM EDT BASIC METABOLIC PANEL STAT 01/14/2021 12:13 PM EDT CBC STAT 01/14/2021 12:13 PM EDT INTRAOP AIRWAY PLACEMENT Routine 01/14/2021 11:18 AM EDT POSTOP BLEEDING CONTROL (UNSPEC) 01/14/2021 10:34 AM EDT Stenosis of iliac artery Dehiscence of fascia, initial encounter Special Needs CELL SAVER XR CHEST AP PORTABLE STAT 01/14/2021 10:04 AM EDT GLUCOSE METER POC Routine 01/14/2021 9:00 AM EDT TEG HEMOSTASIS LAB PERFORMED Routine 01/14/2021 8:20 AM EDT CBC Routine 01/14/2021 8:20 AM EDT IP CONSULT TO NUTRITION Routine 01/14/2021 8:00 AM EDT IP CONSULT TO SOCIAL WORK Routine 01/14/2021 8:00 AM EDT IP CONSULT TO WOUND CARE Routine 01/14/2021 8:00 AM EDT TEG GLOBAL HEMOSTASIS Routine 01/14/2021 7:37 AM EDT HEMOGLOBIN AND HEMATOCRIT STAT 01/14/2021 6:03 AM EDT GLUCOSE METER POC Routine 01/14/2021 4:09 AM EDT CALCIUM, IONIZED Routine 01/14/2021 3:25 AM EDT BASIC METABOLIC PANEL Routine 01/14/2021 3:25 AM EDT CBC STAT 01/14/2021 3:25 AM EDT GLUCOSE METER POC Routine 01/14/2021 12:59 AM EDT TRANSFUSE RED BLOOD CELLS Routine 01/13/2021 11:46 PM EDT LACTIC ACID Routine 01/13/2021 10:14 PM EDT PHOSPHORUS LEVEL Routine 01/13/2021 10:14 PM EDT MAGNESIUM LEVEL Routine 01/13/2021 10:14 PM EDT CALCIUM, IONIZED Routine 01/13/2021 10:14 PM EDT TEG HEMOSTASIS LAB PERFORMED Routine 01/13/2021 10:14 PM EDT BASIC METABOLIC PANEL Routine 01/13/2021 10:14 PM EDT CBC Routine 01/13/2021 10:14 PM EDT BLOOD GAS ARTERIAL STAT 01/13/2021 9:26 PM EDT TEG GLOBAL HEMOSTASIS Routine 01/13/2021 9:25 PM EDT GLUCOSE METER POC Routine 01/13/2021 8:46 PM EDT GLUCOSE METER POC Routine 01/13/2021 5:29 PM EDT TEG HEMOSTASIS LAB PERFORMED Routine 01/13/2021 2:21 PM EDT TEG GLOBAL HEMOSTASIS Routine 01/13/2021 1:54 PM EDT CBC STAT 01/13/2021 1:39 PM EDT PHOSPHORUS LEVEL STAT 01/13/2021 1:38 PM EDT MAGNESIUM LEVEL STAT 01/13/2021 1:38 PM EDT BASIC METABOLIC PANEL STAT 01/13/2021 1:38 PM EDT CALCIUM, IONIZED STAT 01/13/2021 1:37 PM EDT GLUCOSE METER POC Routine 01/13/2021 1:35 PM EDT GLUCOSE METER POC Routine 01/13/2021 9:32 AM EDT REPEAT LACTIC ACID STAT 01/13/2021 8:44 AM EDT REPEAT LACTIC ACID STAT 01/13/2021 6:11 AM EDT CALCIUM, IONIZED Routine 01/13/2021 5:00 AM EDT BLOOD GAS ARTERIAL Routine 01/13/2021 4:08 AM EDT LACTIC ACID Routine 01/13/2021 4:08 AM EDT BASIC METABOLIC PANEL Routine 01/13/2021 4:08 AM EDT CBC Routine 01/13/2021 4:08 AM EDT GLUCOSE METER POC Routine 01/13/2021 4:07 AM EDT FFP/PLASMA REQUEST STAT 01/13/2021 2:35 AM EDT CRYOPRECIPITATE REQUEST STAT 01/13/2021 2:35 AM EDT GLUCOSE METER POC Routine 01/13/2021 12:43 AM EDT CBC Routine 01/12/2021 11:17 PM EDT REPEAT LACTIC ACID STAT 01/12/2021 11:17 PM EDT TEG HEMOSTASIS LAB PERFORMED STAT 01/12/2021 10:04 PM EDT TEG GLOBAL HEMOSTASIS Routine 01/12/2021 9:18 PM EDT REPEAT LACTIC ACID STAT 01/12/2021 9:12 PM EDT GLUCOSE METER POC Routine 01/12/2021 8:47 PM EDT XR CHEST AP PORTABLE BISI 01/12/2021 7:18 PM EDT CALCIUM, IONIZED Routine 01/12/2021 6:50 PM EDT PHOSPHORUS LEVEL Routine 01/12/2021 6:50 PM EDT MAGNESIUM LEVEL Routine 01/12/2021 6:50 PM EDT BASIC METABOLIC PANEL Routine 01/12/2021 6:50 PM EDT REPEAT LACTIC ACID STAT 01/12/2021 6:47 PM EDT TEG HEMOSTASIS LAB PERFORMED Routine 01/12/2021 6:47 PM EDT TEG GLOBAL HEMOSTASIS Routine 01/12/2021 6:14 PM EDT GLUCOSE METER POC Routine 01/12/2021 6:04 PM EDT TRANSFUSE CRYOPRECIPITATE Routine 01/12/2021 5:51 PM EDT CBC Routine 01/12/2021 5:10 PM EDT LACTIC ACID Routine 01/12/2021 5:10 PM EDT BLOOD GAS ARTERIAL Routine 01/12/2021 5:10 PM EDT TEG HEMOSTASIS LAB PERFORMED Routine 01/12/2021 4:24 PM EDT TRANSFUSE FRESH FROZEN PLASMA Routine 01/12/2021 4:21 PM EDT TRANSFUSE FRESH FROZEN PLASMA Routine 01/12/2021 4:06 PM EDT TEG GLOBAL HEMOSTASIS Routine 01/12/2021 3:46 PM EDT TRANSFUSE RED BLOOD CELLS Routine 01/12/2021 3:42 PM EDT TRANSFUSE RED BLOOD CELLS Routine 01/12/2021 3:37 PM EDT HEMOGLOBIN AND HEMATOCRIT STAT 01/12/2021 3:22 PM EDT CBC Routine 01/12/2021 2:41 PM EDT LACTIC ACID STAT 01/12/2021 2:10 PM EDT BLOOD GAS ARTERIAL STAT 01/12/2021 2:10 PM EDT PHOSPHORUS LEVEL STAT 01/12/2021 2:07 PM EDT MAGNESIUM LEVEL STAT 01/12/2021 2:07 PM EDT BASIC METABOLIC PANEL STAT 01/12/2021 2:07 PM EDT TEG PLATELET MAPPING Routine 01/12/2021 12:58 PM EDT LACTIC ACID STAT 01/12/2021 12:49 PM EDT BLOOD GAS ARTERIAL STAT 01/12/2021 12:49 PM EDT TEG PLATELET MAPPING LAB PERFORMED STAT 01/12/2021 12:49 PM EDT TEG HEMOSTASIS LAB PERFORMED STAT 01/12/2021 12:49 PM EDT CBC STAT 01/12/2021 12:49 PM EDT IP CONSULT TO SURGICAL SENIOR EXECUTIVE ASSISTANT - EDG ONLY Routine 01/12/2021 12:31 PM EDT Procedure Note - Jovi Cárdenas DO - 01/12/2021 4:07 PM EDTThis note is in progress. SURGICAL CRITICAL CARE CONSULTATION Drew Aiken is a 65 y.o. male admitted 01/12* s/p open repair ofabdominal aortic aneurysm reconstruction with aorto-bifemoral bypass andright femoral endarterectomy. We are asked to see the patient by Dr. Tomlin. The intraoperative course was uncomplicated. EBL 1700 L, 4 L crystalloid,1 L Colloid. Easy intubation. Postoperatively the patient developed hypotension unresponsive to fluids.He was was started on Norepinephrine. Initial Hbg > 10 and abdomensoft/flat. After initial resuscitative efforts Hbg had dropped to 7.4 andhis abdomen was distended. Patient volume responsive with free fluid inabdomen. Arterial line replaced. PLAN -Protamine 25 mg -Avoid any further crystalloid or colloid -Target SBP 90 or MAP 60. Do not increase BP above these target -Increase room temp and check calcium -Repeat TEG after Protamine as it is unlikely that the remainder of theTEG will correct after R time reversal. -2 units PRBCs. Will transfuse 2 units of FFP in conjunction to preventfurther dilution. -Correct coagulopathy. If still bleeding will return to OR. PROBLEM LIST Abdomin Aortic Aneurysm s/p open repair of abdominal aortic aneurysmreconstruction with aorto-bifemoral bypass and right femoralendarterectomy -Intra abdominal bleeding surgical vs coagulopathy -Keep warm, monitor calcium closely, protamine to reverse prolonged Rtime, permissive hypotension until coagulopathy reversed -Pulses intact -Will place epidural once stable and safe from bleeding perspective Hemorrhagic Shock -Resuscitate with blood as needed (avoid crystalloids) -Product administration based on TEG results -Keep warm, monitor calcium closely, protamine to reverse prolonged Rtime, -Permissive Hypotension -Trend Lactate, SvO2, Base Deficit, Creatinine and UOP COPD -SpO2 88-94 -Once stable keep HOB > 30 -Pain control to promote effective pulmonary toilet -Will need diuresis once hemostatic -Albuterol/Ipratropium PRN CAD -HR 60's, No ST changes on Telemetry -Hold ASA -Hold PO meds -Denied chest pain Code Status: Full Disposition: ICU Jovi Cárdenas DO Critical care time: 180 minutes. This was care delivered because one or more vital organ systems wasimpaired so that there was a high probability of imminent or lifethreatening deterioration in the patient s condition. I instituted carethat is considered a critical intervention because it involves highcomplexity decision making to assess, manipulate, and support vital organsystem failure. This time was spent engaged in work directly related tothe individual patient s care either at the immediate bedside or elsewhereon unit. ADMIT Routine 01/12/2021 12:31 PM EDT PERIPHERAL BLOCK Routine 01/12/2021 12:10 PM EDT TEG GLOBAL HEMOSTASIS Routine 01/12/2021 12:06 PM EDT POCT ISTAT CG8 ARTERIAL Routine 01/12/2021 11:41 AM EDT POCT ISTAT CG8 ARTERIAL Routine 01/12/2021 11:11 AM EDT POCT ISTAT CG8 ARTERIAL Routine 01/12/2021 9:22 AM EDT ADMIT Routine 01/12/2021 9:18 AM EDT INTRAOP AIRWAY PLACEMENT Routine 01/12/2021 8:51 AM EDT ABDOMINAL AORTIC OR ILIAC ANEURYSM REPAIR (COVERS ENDARTERECTOMY AND RENAL BYPASS) 01/12/2021 7:58 AM EDT Abdominal aortic aneurysm (AAA) without rupture Special Needs epidural blockCordis/art line, cell saver notified (WS) ANE ARTERIAL LINE PLACEMENT Routine 01/12/2021 7:50 AM EDT CENTRAL VENOUS LINE PLACEMENT Routine 01/12/2021 7:49 AM EDT BB HISTORY CHECK STAT 01/12/2021 6:10 AM EDT ABORH STAT 01/12/2021 6:10 AM EDT SCANNED EKG 01/11/2021 10:07 AM EDT RED BLOOD CELLS REQUEST BISI 12/28/2020 11:16 AM EDT RED BLOOD CELLS REQUEST BISI 12/28/2020 11:16 AM EDT RED BLOOD CELLS REQUEST BISI 12/28/2020 11:16 AM EDT BB HISTORY CHECK Routine 12/28/2020 11:16 AM EDT Preop testing Abdominal aortic aneurysm (AAA) without rupture SURGERY DATE Routine 12/28/2020 11:16 AM EDT Preop testing Abdominal aortic aneurysm (AAA) without rupture ANTIBODY SCREEN IGG Routine 12/28/2020 11:16 AM EDT Preop testing Abdominal aortic aneurysm (AAA) without rupture ABORH Routine 12/28/2020 11:16 AM EDT Preop testing Abdominal aortic aneurysm (AAA) without rupture PREADMISSION TYPE AND SCREEN Routine 12/28/2020 11:16 AM EDT Preop testing Abdominal aortic aneurysm (AAA) without rupture CBC WITH DIFF Routine 12/28/2020 11:16 AM EDT Preop testing Abdominal aortic aneurysm (AAA) without rupture BASIC METABOLIC PANEL Routine 12/28/2020 11:16 AM EDT Preop testing Abdominal aortic aneurysm (AAA) without rupture SCANNED RADIOLOGY REPORT 11/29/2020 8:07 AM EDT Results * CT ABD PEL ED FAST W CONTRAST (02/14/2024 1:56 PM EDT) Anatomical Region Laterality Modality Abdomen, Pelvis Computed Tomogra phy 02/14/2024 1:56 PM EDT Impressions 02/14/2024 2:43 PM EDT 1. Asymmetric soft tissue density within the right inguinal canal, corresponding to clinical finding. Nonspecific in appearance and indeterminate in etiology. 2. Otherwise, no acute abnormality within the abdomen or pelvis. - Note: Radiology results need to be interpreted within a comprehensive clinical context. If you have questions about the radiology report, please contact the office of the ordering clinician. Narrative 02/14/2024 2:[address] ABDOMEN AND PELVIS WITH CONTRAST (FAST), 02/14/2024 1:56 PM CLINICAL HISTORY: -Right inguinal mass - hernia?. COMPARISON: None. PROCEDURE COMMENTS: Multi-detector CT scanning of the abdomen and pelvis with multiplanar reformatting per expedited protocol. Isovue 370 IV contrast given as recorded in EPIC. Dose 1 : CT DLP Total : 315.51 mGycm DLP Spiral Max : 313.28 mGycm Maximum CTDI Vol : 5.98 mGy FINDINGS: LOWER THORAX: Lung bases unremarkable. ABDOMEN AND PELVIS: Spleen, adrenal glands, pancreas unremarkable. No acute abnormality of the liver. Liver cyst present. Gallbladder surgically absent. Bilateral low attenuating renal lesions, favored to reflect cysts. No hydronephrosis. Noninflamed sigmoid colonic diverticula. Moderate stool throughout the right and transverse colon. No evidence of bowel obstruction or acute inflammation. Bladder is distended. Prostatomegaly with brachytherapy seeds present. No free abdominal or pelvic fluid. Postoperative changes of infrarenal aorto-bifemoral bypass. 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 There is some asymmetric tissue density within the right inguinal canal, indeterminate in etiology (image 63). No acute osseous abnormality. Procedure Note Gage Donnelly MD - 02/14/2024 CT ABDOMEN AND PELVIS WITH CONTRAST (FAST), 02/14/2024 1:56 PM CLINICAL HISTORY: -Right inguinal mass - hernia?. COMPARISON: None. PROCEDURE COMMENTS: Multi-detector CT scanning of the abdomen and pelviswith multiplanar reformatting per expedited protocol. Isovue 370 IV contrastgiven as recorded in EPIC. Dose 1 : CT DLP Total : 315.51 mGycm DLP Spiral Max : 313.28 mGycm Maximum CTDI Vol : 5.98 mGy FINDINGS: LOWER THORAX: Lung bases unremarkable. ABDOMEN AND PELVIS: Spleen, adrenal glands, pancreas unremarkable. No acute abnormality of the liver. Liver cyst present. Gallbladdersurgically absent. Bilateral low attenuating renal lesions, favored to reflect cysts. No hydronephrosis. Noninflamed sigmoid colonic diverticula. Moderate stool throughout theright and transverse colon. No evidence of bowel obstruction or acuteinflammation. Bladder is distended. Prostatomegaly with brachytherapy seeds present. No free abdominal or pelvic fluid. Postoperative changes of infrarenal aorto-bifemoral bypass. Chronicocclusion of right common iliac artery, reconstitution of right salamatof external iliacartery. There is some asymmetric tissue density within the right inguinal canal, indeterminate in etiology (image 63). No acute osseous abnormality. IMPRESSION: 1. Asymmetric soft tissue density within the right inguinal canal, corresponding to clinical finding. Nonspecific in appearance andindeterminate in etiology. 2. Otherwise, no acute abnormality within the abdomen or pelvis. - Note: Radiology results need to be interpreted within a comprehensiveclinical context. If you have questions about the radiology report, please contactthe office of the ordering clinician. us Neto Rosario MD IMG CT ORDERABLES Final Result * CBC WITH DIFF (02/14/2024 1:05 PM EDT) Only the most recent of3 resultswithin the time period is included. WBC 5.4 3.7 - 10.3 x10(3)/mcL 02/14/2024 1:11 PM EDT [facility] RBC 5.03 4.60 - 6.10 x10(6)/mcL 02/14/2024 1:11 PM EDT [facility] Hgb 16.3 13.7 - 17.5 g/dL 02/14/2024 1:11 PM EDT [facility] Hct 49.2 40.0 - 51.0 % 02/14/2024 1:11 PM EDT [facility] MCV 97.8 80.0 - 100.0 fL 02/14/2024 1:11 PM EDT [facility] MCH 32.4 26.0 - 34.0 pg 02/14/2024 1:11 PM EDT [facility] MCHC 33.1 30.7 - 35.5 g/dL 02/14/2024 1:11 PM EDT [facility] RDW 12.5 <=14.9 % 02/14/2024 1:11 PM EDT [facility] Platelet 195 155 - 369 x10(3)/mcL 02/14/2024 1:11 PM EDT [facility] MPV 10.3 8.8 - 12.5 fL 02/14/2024 1:11 PM EDT [facility] Neut Percent 56.4 % 02/14/2024 1:11 PM EDT [facility] Comment:Neutrophils equals s egs plus bands Imm Gran% 0.2 % 02/14/2024 1:11 PM EDT [facility] Comment:Automated count of m etamyelocytes, myelocytes and promyelocytes. Lymph Percent 33.6 % 02/14/2024 1:11 PM EDT [facility] [place] Percent 8.3 % 02/14/2024 1:11 PM EDT [facility] Eos Percent 0.9 % 02/14/2024 1:11 PM EDT [facility] Baso Percent 0.6 % 02/14/2024 1:11 PM EDT [facility] Neut # 3.1 1.6 - 6.1 x10(3)/mcL 02/14/2024 1:11 PM EDT [facility] Comment:Neutrophils equals s egs plus bands IMMGRAN# 0.0 0.0 - 0.1 x10(3)/mcL 02/14/2024 1:11 PM EDT [facility] Comment:Automated count of m etamyelocytes, myelocytes and promyelocytes. An absolute IG <0.1 is reported as 0.0. Lymph # 1.8 1.2 - 3.9 x10(3)/mcL 02/14/2024 1:11 PM EDT [facility] [place] # 0.5 0.3 - 0.9 x10(3)/mcL 02/14/2024 1:11 PM EDT [facility] Eos# 0.1 0.0 - 0.5 x10(3)/mcL 02/14/2024 1:11 PM EDT [facility] Baso # 0.0 0.0 - 0.1 x10(3)/mcL 02/14/2024 1:11 PM EDT [facility] Blood VENOUS BLOOD / Unknown Venipuncture / Unknown 02/14/2024 1:05 PM EDT 02/14/2024 1:08 PM EDT us Neto Rosario MD HEMATOLOGY ORDERABLES Final Re sult [facility] [address] [place] [id number] * (ABNORMAL) BASIC METABOLIC PANEL (02/14/2024 1:05 PM EDT) Only the most recent of9 resultswithin the time period is included. Sodium 139 136 - 145 mmol/L 02/14/2024 1:27 PM EDT [facility] Potassium 4.2 3.5 - 5.0 mmol/L 02/14/2024 1:27 PM EDT [facility] Chloride 100 98 - 107 mmol/L 02/14/2024 1:27 PM EDT [facility] Total CO2 29 22 - 29 mmol/L 02/14/2024 1:27 PM EDT [facility] Anion Gap 10 7 - 16 mmol/L 02/14/2024 1:27 PM EDT [facility] Calcium 9.5 8.8 - 10.4 mg/dL 02/14/2024 1:27 PM EDT [facility] Glucose Lvl 101(H) 70 - 99 mg/dL 02/14/2024 1:27 PM EDT [facility] BUN 8 8 - 23 mg/dL 02/14/2024 1:27 PM EDT [facility] Creatinine 0.74 0.67 - 1.30 mg/dL 02/14/2024 1:27 PM EDT [facility] eGFR (CKD-EPIcr 2020) 97 >=60 mL/min/1.7 3 m2 02/14/2024 1:27 PM EDT [facility] Comment:Estimated GFR was ca lculated using the CKD-EPIcr (2020) equation refit without race. The equation is recommended by the [employer] - [place] [employer]ph[employer] Task Force. Blood VENOUS BLOOD / Unknown Venipuncture / Unknown 02/14/2024 1:05 PM EDT 02/14/2024 1:08 PM EDT us Neto Rosario MD CHEMISTRY ORDERABLES Final Res ult [address] [id number] * [facility] EXTREMITY ARTERIAL DUPLEX COMPLETE (07/24/2022 9:03 AM EST) Only the most recent of3 resultswithin the time period is included. Anatomical Region Laterality Modality Vascular, Leg Vascular Imaging 07/24/2022 8:44 AM EST Impressions 07/24/2022 10:44 AM EST Conclusions * Right: * Widely patent outflow right limb of the bypass graft. * The right common femoral, superficial femoral, and popliteal arteries are patent with triphasic flow. * Present CHRISTMAS TREE GRADER measurement: 1.52 cm x 1.58 cm. * Present POP measurement: 5.9 mm x 6.3 mm. * Previous CHRISTMAS TREE GRADER measurement: 1.58 cm x 1.59 cm. * Previous POP measurement: 0.77 cm x 0.68 cm. * Left: * Widely patent outflow left limb of the bypass graft. * The left common femoral, superficial femoral, and popliteal arteries are patent with triphasic flow. * Present CHRISTMAS TREE GRADER measurement: 11.3 mm x 12.0 mm. * Present POP measurement: 6.0 mm x 6.2 mm. * Right brachial: 121/87. * Right SUPPLY CHAIN PROJECT MANAGER: 146 (OLU: 1.21). * Right DPA: 145 (OLU: 1.20). * Left SUPPLY CHAIN PROJECT MANAGER: 144 (OLU: 1.19). * Left DPA: 121 (OLU: 1.00). Narrative Procedure Note Lauro Covarrubias MD - 07/24/2022 IMPRESSION Conclusions * Right: * Widely patent outflow right limb of the bypass graft. * The right common femoral, superficial femoral, and popliteal arteriesare patent with triphasic flow. * Present CHRISTMAS TREE GRADER measurement: 1.52 cm x 1.58 cm. * Present POP measurement: 5.9 mm x 6.3 mm. * Previous CHRISTMAS TREE GRADER measurement: 1.58 cm x 1.59 cm. * Previous POP measurement: 0.77 cm x 0.68 cm. * Left: * Widely patent outflow left limb of the bypass graft. * The left common femoral, superficial femoral, and popliteal arteriesare patent with triphasic flow. * Present CHRISTMAS TREE GRADER measurement: 11.3 mm x 12.0 mm. * Present POP measurement: 6.0 mm x 6.2 mm. * Right brachial: 121/87. * Right SUPPLY CHAIN PROJECT MANAGER: 146 (OLU: 1.21). * Right DPA: 145 (OLU: 1.20). * Left SUPPLY CHAIN PROJECT MANAGER: 144 (OLU: 1.19). * Left DPA: 121 (OLU: 1.00). us Jeramy Calhoun PA-C IMG VASCULAR ORDERABLES Final Re sult * VA US AORTA ILIAC IVC COMPLETE (07/24/2022 8:38 AM EST) Only the most recent of2 resultswithin the time period is included. Anatomical Region Laterality Modality Abdomen, Vascular Vascular Imagi ng 07/24/2022 8:26 AM EST Impressions 07/24/2022 10:41 AM EST Conclusions * No evidence of AAA. * Present measurement (mid aorta): 2.5 cm x 2.7 cm. * Previous measurement (prox aorta): 2.3 cm x 2.2 cm. * Widely patent aortobifemoral Gortex bypass graft. * Right limb of the bypass graft has a velocity of 110 cm/sec. * Left limb of the bypass graft has a velocity of 95 cm/sec. Narrative Procedure Note Lauro Covarrubias MD - 07/24/2022 IMPRESSION Conclusions * No evidence of AAA. * Present measurement (mid aorta): 2.5 cm x 2.7 cm. * Previous measurement (prox aorta): 2.3 cm x 2.2 cm. * Widely patent aortobifemoral Gortex bypass graft. * Right limb of the bypass graft has a velocity of 110 cm/sec. * Left limb of the bypass graft has a velocity of 95 cm/sec. us Jeramy Calhoun PA-C IMG VASCULAR ORDERABLES Final Re sult * SCANNED LABS (01/22/2021 6:11 AM EDT) 01/22/2021 6:11 AM EDT us Unknown Unknown HEMATOLOGY ORDERABLES Final Resu lt * (ABNORMAL) GLUCOSE METER POC (01/21/2021 1:44 PM EDT) Only the most recent of43 resultswithin the time period is included. [facility] Glucose Meter POC 107(H) 70 - 100 mg/dL 01/21/2021 1:45 PM EDT [facility] Sample Type Capillary 01/21/2021 1:45 PM EDT [facility] Patient Status Non-Critical Patient 01/21/2021 1:45 PM EDT [facility] Blood BLOOD SPECIMEN / Unknown 01/21/2021 1:44 PM EDT 01/21/2021 1:45 PM EDT Ricky Tomlin MD POINT OF CARE TEST ORDERABLES Final Result [facility] [address] [place] [address] * EC ECHOCARDIOGRAM COMPLETE W DOPPLER AND COLOR FLOW MAPPING (01/21/2021 11:35 AM EDT) [facility] Ejection Fraction 50-55 % [place] Anatomical Region Laterality Modality Electrocardiogra phy 01/21/2021 10:5 1 AM EDT Impressions 01/21/2021 12:13 PM EDT CONCLUSIONS Low-normal global systolic function and ejection fraction. Dilatation of the aortic root (4.1 cm) and proximal ascending aorta (4.0 cm). Narrative Procedure Note Vivek Chavez MD - 01/21/2021 IMPRESSION CONCLUSIONS Low-normal global systolic function and ejection fraction. Dilatation of the aortic root (4.1 cm) and proximal ascending aorta (4.0cm). us Apollo Lopez DO IMG ECHO ORDERABLES Final Re sult * ECG AND WAVEFORMS - TELEMETRY (01/21/2021 7:04 AM EDT) Only the most recent of14 resultswithin the time period is included. Pathologist [facility] [place] ECG INTERPRET NSR [facility] 01/21/2021 7:[address] [facility] - 01/21/2021 9:06 AM EDT VM/HICUITY/ROUTINE UT 0.14 QRS 0.12 QT 0.43 See Clinical Report link for waveform capture us Unknown Provider POINT OF CARE CARDIOLOGY Final Result [facility] [address] [place] [address] * (ABNORMAL) COMPREHENSIVE METABOLIC PANEL (01/21/2021 5:48 AM EDT) Only the most recent of7 resultswithin the time period is included. Pathologist [facility] [place] Sodium 136 136 - 145 mmol/L 01/21/2021 6:51 AM EDT [facility] Potassium 3.5 3.5 - 5.0 mmol/L 01/21/2021 6:51 AM EDT [facility] Chloride 95(L) 98 - 107 mmol/L 01/21/2021 6:51 AM EDT [facility] Total CO2 35(H) 22 - 29 mmol/L 01/21/2021 6:51 AM EDT [facility] Anion Gap 6(L) 7 - 16 mmol/L 01/21/2021 6:51 AM EDT [facility] Calcium 8.2(L) 8.8 - 10.4 mg/dL 01/21/2021 6:51 AM EDT [facility] Glucose Lvl 105(H) 82 - 100 mg/dL 01/21/2021 6:51 AM EDT [facility] BUN 9 8 - 23 mg/dL 01/21/2021 6:51 AM EDT [facility] Creatinine 0.89 0.67 - 1.30 mg/dL 01/21/2021 6:51 AM EDT [facility] Albumin 2.9(L) 3.2 - 4.6 gm/dL 01/21/2021 6:51 AM EDT [facility] Total Protein 4.9(L) 6.4 - 8.3 gm/dL 01/21/2021 6:51 AM EDT [facility] Bili Total 0.8 0.1 - 1.4 mg/dL 01/21/2021 6:51 AM EDT [facility] ALT 28 <=41 U/L 01/21/2021 6:51 AM EDT [facility] AST 35 <=40 U/L 01/21/2021 6:51 AM EDT [facility] Alk Phos 104 40 - 129 U/L 01/21/2021 6:51 AM EDT [facility] GFR Afr Am 102 >=60 mL/min/1.7 3 m2 01/21/2021 6:51 AM EDT [facility] GFR Non Afr Am 88 >=60 mL/min/1.7 3 m2 01/21/2021 6:51 AM EDT [facility] Comment: This estimated GFR was calculated using CKD-EPI equation which is modified based on ethnicity for Non Americans and Americans. Both results are reported since it is not always possible to determine the patient's ethnicity. This equation should only be used for individuals 18 and older. It has not been validated for use with the elderly (>70 years), women, or in some racial or ethnic subgroups, such as Hispanics. The equation will be less accurate in people with differences in nutritional status or muscle mass. Blood VENOUS BLOOD / Unknown Venipuncture / Unknown 01/21/2021 5:48 AM EDT 01/21/2021 6:13 AM EDT us Charles Alex MD CHEMISTRY ORDERABLES Final Re sult [facility] [address] [facility], [place] [address] [facility] [address] [place] [id number] * PLATELET COUNT (01/20/2021 8:01 AM EDT) Only the most recent of2 resultswithin the time period is included. Platelet 257 155 - 369 x10(3)/mcL 01/20/2021 9:15 AM EDT [facility] MPV 11.2 8.8 - 12.5 fL 01/20/2021 9:15 AM EDT [facility] Blood VENOUS BLOOD / Unknown Venipuncture / Unknown 01/20/2021 8:01 AM EDT 01/20/2021 8:34 AM EDT us Ricky Tomlin MD HEMATOLOGY ORDERABLES Final R esult [facility] [address] [facility], [place] [address] * XR CHEST PA AND LATERAL (01/19/2021 2:20 PM EDT) Anatomical Region Laterality Modality Chest Radio Fluoroscop y 01/19/2021 2:20 PM EDT Impressions 01/19/2021 4:36 PM EDT Small bilateral pleural effusions. Improved aeration bilateral lung bases, small left basilar airspace disease persists favoring atelectasis. - Note: Radiology results need to be interpreted within a comprehensive clinical context. If you have questions about the radiology report, please contact the office of the ordering clinician. Narrative 01/19/2021 4:36 PM EDT PA AND LATERAL CHEST X-RAY, 01/19/2021 2:20 PM CLINICAL HISTORY: -Hypoxia COMPARISON: 01/14/2021, 01/12/2021 PROCEDURE COMMENTS: Frontal and lateral views of the chest. FINDINGS: Bilateral pleural effusions again identified. Improved aeration bilateral bases. Trace left basilar airspace disease persists. Likely atelectasis. No pneumothorax. Heart size unchanged. Procedure Note Evan Jefferson MD - 01/19/2021 PA AND LATERAL CHEST X-RAY, 01/19/2021 2:20 PM CLINICAL HISTORY: -Hypoxia COMPARISON: 01/14/2021, 01/12/2021 PROCEDURE COMMENTS: Frontal and lateral views of the chest. FINDINGS: Bilateral pleural effusions again identified. Improvedaeration bilateral bases. Trace left basilar airspace disease persists. Likely atelectasis. No pneumothorax. Heart size unchanged. IMPRESSION: Small bilateral pleural effusions. Improved aeration bilateral lung bases, small left basilar airspace disease persists favoringatelectasis. - Note: Radiology results need to be interpreted within a comprehensiveclinical context. If you have questions about the radiology report, please contactthe office of the ordering clinician. us Apollo Lopez DO IMG DIAGNOSTIC IMAGING ORDER DIAMOND Final Result * (ABNORMAL) NT PROBNP (01/19/2021 5:28 AM EDT) [facility] NT Pro-BNP 455(H) <=229 pg/mL 01/20/2021 7:43 AM EDT [facility] Blood VENOUS BLOOD / Unknown Venipuncture / Unknown 01/19/2021 5:28 AM EDT 01/19/2021 6:00 AM EDT Narrative [facility] - 01/20/2021 7:43 AM EDT An NT pro-BNP level less than 300 pg/mL in any patient, regardless of age, effectively rules out acute CHF with a 99% negative predictive value. us Apollo Lopez DO CHEMISTRY ORDERABLES Final R esult [facility] [address] [place] [address] , [address] [place] [id number] * (ABNORMAL) CBC (01/15/2021 4:57 AM EDT) Only the most recent of11 resultswithin the time period is included. [facility] WBC 9.2 3.7 - 10.3 x10(3)/mcL 01/15/2021 5:23 AM EDT [facility] RBC 2.88(L) 4.60 - 6.10 x10(6)/mcL 01/15/2021 5:23 AM EDT [facility] Hgb 9.3(L) 13.7 - 17.5 g/dL 01/15/2021 5:23 AM EDT [facility] Hct 27.8(L) 40.0 - 51.0 % 01/15/2021 5:23 AM EDT [facility] MCV 96.5 80.0 - 100.0 fL 01/15/2021 5:23 AM EDT [facility] MCH 32.3 26.0 - 34.0 pg 01/15/2021 5:23 AM EDT [facility] MCHC 33.5 30.7 - 35.5 g/dL 01/15/2021 5:23 AM EDT [facility] RDW 15.4(H) <=14.9 % 01/15/2021 5:23 AM EDT [facility] Platelet 89(L) 155 - 369 x10(3)/mcL 01/15/2021 5:23 AM EDT [facility], [facility] MPV 11.1 8.8 - 12.5 fL 01/15/2021 5:23 AM EDT [facility], [facility] Blood VENOUS BLOOD / Unknown Venipuncture / Unknown 01/15/2021 4:57 AM EDT 01/15/2021 5:01 AM EDT Jeramy Collins APRN HEMATOLOGY ORDERABLES Final Re sult Performing Organization Address [facility]/State/ZIP Co de Phone Number [facility], [facility] [address] , [place] [address] * IONIZED CALCIUM - INPATIENT (01/14/2021 12:13 PM EDT) Only the most recent of6 resultswithin the time period is included. Calcium Ionized 1.21 1.12 - 1.32 mmol/L 01/14/2021 12:36 PM EDT [facility] Blood ARTERIAL BLOOD / Unknown Venipuncture / Unknown 01/14/2021 12:13 PM EDT 01/14/2021 12:28 PM EDT Todd Robles MD CHEMISTRY ORDERABLES Final Re sult Performing Organization Address City/[facility] Co de Phone Number [facility] [address] [facility], [place] [address] * INTRAOP AIRWAY PLACEMENT (01/14/2021 11:18 AM EDT) Narrative [facility] - 01/14/2021 11:18 AM EDT Natalio Cotto CRNA 01/14/2021 11:18 AM Intraop Airway Placement: Date/Time: 01/14/2021 10:51 AM Induction type: IV Mask size: Standard adult Pre-Oxygenation: Standard Mask ventilation: Easy mask ventilation Technique: Video laryngoscope Laryngoscope blade: Neumann Blade size: 3 Grade view: I Airway type: ETT- cuffed Topical Anesthetic/Lubricant: Lubricant jelly Intubation assist devices: Stylet 14fr Airway location: Oral Device size: 8mm Secured at: 21 cm Secured by: Tape Measured from: Teeth Placement verified: Auscultation, End tidal CO2 and Symmetric chest wall motion Condition: Atraumatic and Unchanged Insertion attempts: 1 Attempt 1 by: Yadiel Title: BREAD DOUGH MIXER us Rylie Shipman MD [place] ANESTHESIA Final Result Performing Organization Address [facility]/[place] de Phone Number [address] [address] * XR CHEST AP PORTABLE (01/14/2021 10:04 AM EDT) Only the most recent of2 resultswithin the time period is included. Anatomical Region Laterality Modality Chest Radiographic Shannon ging 01/14/2021 10:0 4 AM EDT Impressions 01/14/2021 10:11 AM EDT Developing bibasilar opacities left greater right which may represent combination developing bilateral fluid collections and atelectasis or pneumonia left lower lobe. - Note: Radiology results need to be interpreted within a comprehensive clinical context. If you have questions about the radiology report, please contact the office of the ordering clinician. Narrative 01/14/2021 10:11 AM EDT XR CHEST AP PORTABLE, 01/14/2021 10:04 AM CLINICAL HISTORY: -increased oxygen needs COMPARISON: 01/12/2021 PROCEDURE COMMENTS: AP portable technique. FINDINGS: Right IJ catheter tip SVC. Cardiopericardial silhouette within normal limits. Developing bibasilar opacities left greater than right. This may indicate developing fluid and infiltrate in the lung bases. Relatively dense opacification left retrocardiac base may represent atelectasis or pneumonia left lower lobe. Upper lungs are clear. Procedure Note Donell Mata III, MD - 01/14/2021 XR CHEST AP PORTABLE, 01/14/2021 10:04 AM CLINICAL HISTORY: -increased oxygen needs COMPARISON: 01/12/2021 PROCEDURE COMMENTS: AP portable technique. FINDINGS: Right IJ catheter tip SVC. Cardiopericardial silhouette within normal limits. Developing bibasilar opacities left greater than right. This mayindicate developing fluid and infiltrate in the lung bases. Relatively dense opacification left retrocardiac base may represent atelectasis orpneumonia left lower lobe. Upper lungs are clear. IMPRESSION: Developing bibasilar opacities left greater right which may represent combination developing bilateral fluid collections andatelectasis or pneumonia left lower lobe. - Note: Radiology results need to be interpreted within a comprehensiveclinical context. If you have questions about the radiology report, please contactthe office of the ordering clinician. Chirstianne Petty APRN IMG DIAGNOSTIC IMAGING ORDER DIAMOND Final Result * TEG HEMOSTASIS LAB PERFORMED (01/14/2021 8:20 AM EDT) Only the most recent of7 resultswithin the time period is included. Blood ARTERIAL BLOOD / Unknown Venipuncture / Unknown 01/14/2021 8:20 AM EDT 01/14/2021 8:25 AM EDT Christianne Petty APRN HEMATOLOGY ORDERABLES Final Result [facility] [employer] [employer] [address] , [place] [address] * TEG GLOBAL HEMOSTASIS (01/14/2021 7:37 AM EDT) Only the most recent of7 resultswithin the time period is included. TEG Functional Fibrinogen - MA 17.9 15 - [address] [facility] TEG Functional Fibrinogen - FLEV 326.6 278 - 581 mg/dL [facility] TEG Rapid - MA 57.3 52 - [address] [facility] TEG Kaolin w Heparinase - R 4.4 4.3 - 8.[address] [facility] Comment:Units Converted from sec to min -- Original: Value = 264 ; Units = sec ; Ref Range = 258-498 TEG Kaolin - Angle 73.5 63 - [address] [facility] TEG Kaolin - K 1.4 0.8 - 2.[address] [facility] Comment:Units Converted from sec to min -- Original: Value = 84 ; Units = sec ; Ref Range = 48-126 TEG Kaolin - MA 58.7 52 - [address] [facility] TEG Kaolin - R 4.7 4.6 - 9.[address] [facility] Comment:Units Converted from sec to min -- Original: Value = 282 ; Units = sec ; Ref Range = 276-546 01/14/2021 7:[address] [facility] - 01/14/2021 9:05 AM EDT Test Notes: CFF Calc=Fibrin; Cartridge Lot#=[id number] Christianne Petty APRN HEMATOLOGY ORDERABLES Final Result Performing Organization Address City/[facility] de Phone Number [facility] [address] [place] [address] * (ABNORMAL) HEMOGLOBIN AND HEMATOCRIT (01/14/2021 6:03 AM EDT) Only the most recent of2 resultswithin the time period is included. Hgb 8.8(L) 13.7 - 17.5 g/dL 01/14/2021 6:13 AM EDT [facility] Hct 25.3(L) 40.0 - 51.0 % 01/14/2021 6:13 AM EDT [facility] Blood ARTERIAL BLOOD / Unknown Venipuncture / Unknown 01/14/2021 6:03 AM EDT 01/14/2021 6:07 AM EDT Todd Robles MD HEMATOLOGY ORDERABLES Final R esult [facility] [address] [facility], [place] [address] * TRANSFUSE RED BLOOD CELLS (01/14/2021 1:54 AM EDT) Only the most recent of3 resultswithin the time period is included. us Todd Robles MD NURSING TREATMENT ORDERABLES - BLOOD ADMIN Final Result * PHOSPHORUS LEVEL (01/13/2021 10:14 PM EDT) Only the most recent of4 resultswithin the time period is included. Phosphorus 3.9 2.5 - 4.5 mg/dL 01/13/2021 10:45 PM EDT [facility] Blood VENOUS BLOOD / Unknown Venipuncture / Unknown 01/13/2021 10:14 PM EDT 01/13/2021 10:17 PM EDT us Todd Robles MD CHEMISTRY ORDERABLES Final Re sult Performing Organization Address [facility] [place] [address] * MAGNESIUM LEVEL (01/13/2021 10:14 PM EDT) Only the most recent of4 resultswithin the time period is included. Pathologist [facility] [place] Magnesium 1.8 1.6 - 2.4 mg/dL 01/13/2021 10:45 PM EDT [facility] Blood VENOUS BLOOD / Unknown Venipuncture / Unknown 01/13/2021 10:14 PM EDT 01/13/2021 10:17 PM EDT us Todd Robles MD CHEMISTRY ORDERABLES Final Re sult Performing Organization Address [facility] [place] [address] * LACTIC ACID (01/13/2021 10:14 PM EDT) Only the most recent of5 resultswithin the time period is included. Lactic Acid 1.7 0.5 - 1.9 mmol/L 01/13/2021 10:31 PM EDT [facility] Blood VENOUS BLOOD / Unknown Venipuncture / Unknown 01/13/2021 10:14 PM EDT 01/13/2021 10:17 PM EDT Todd Robles MD CHEMISTRY ORDERABLES Final Re sult Performing Organization Address City/[facility]/ZIP Co de Phone Number [facility] [address] [place] [address] * (ABNORMAL) BLOOD GAS ARTERIAL (01/13/2021 9:26 PM EDT) Only the most recent of5 resultswithin the time period is included. pH 7.32(L) 7.35 - 7.45 pH 01/13/2021 9:37 PM EDT [facility] pCO2 48(H) 35 - 45 mmHg 01/13/2021 9:37 PM EDT [facility] pO2 59(L) 80 - 100 mmHg 01/13/2021 9:37 PM EDT [facility] HCO3 24.1 22.0 - 26.0 mmol/L 01/13/2021 9:37 PM EDT [facility] TCO2 24 22 - 29 mmol/L 01/13/2021 9:37 PM EDT [facility] Base Excess -1.4 -2.0 - 3.0 mmol/L 01/13/2021 9:37 PM EDT [facility] O2 Sat 89.2(L) 95.0 - 98.0 % 01/13/2021 9:37 PM EDT [facility] Inspired O2 5L 01/13/2021 9:37 PM EDT [facility] Blood ARTERIAL BLOOD / Unknown Arterial / Unknown 01/13/2021 9:26 PM EDT 01/13/2021 9:33 PM EDT Todd Robles MD CHEMISTRY ORDERABLES Final Re sult [facility] [address] [facility], [address] [place] [id number] * REPEAT LACTIC ACID (01/13/2021 8:44 AM EDT) Only the most recent of5 resultswithin the time period is included. Lactic Acid 1.4 0.5 - 1.9 mmol/L 01/13/2021 9:15 AM EDT [facility] Blood ARTERIAL BLOOD / Unknown Venipuncture / Unknown 01/13/2021 8:44 AM EDT 01/13/2021 9:06 AM EDT us Luke A Linz DO CHEMISTRY ORDERABLES Final Resul t Performing Organization Address [facility] [place] [address] * FFP/PLASMA REQUEST (01/13/2021 2:35 AM EDT) Product Code [id number] [facility] Unit Number [id number] [facility] Dispense Status TRANSFUSED [facility] Blood Expiration Date [facility] ISBT 128 Type [address] [facility] BA CODING SYSTEM [id number] [facility] Blood Type (Unit) A POS [facility] Product Code [id number] [facility] Unit Number [id number] [facility] Dispense Status TRANSFUSED [facility] Blood Expiration Date [facility] ISBT 128 Type [address] [facility] BA CODING SYSTEM [id number] [facility] Blood Type (Unit) A NEG [facility] Blood 01/13/2021 2:35 AM EDT us Luke A Linz DO BLOOD PRODUCT ORDERS Final Resul t Performing Organization Address City/[facility] Co de Phone Number [facility] [place] [address] * CRYOPRECIPITATE REQUEST (01/13/2021 2:35 AM EDT) Product Code [id number] [facility] Unit Number [id number] [facility] Dispense Status TRANSFUSED [facility] Blood Expiration Date [id number] [facility] ISBT 128 Type [address] [facility] BA CODING SYSTEM [id number] [facility] Blood Type (Unit) A POS [facility] Blood 01/13/2021 2:35 AM EDT Christianne Petty APRN BLOOD PRODUCT ORDERS Final R esult [facility] [address] [place] [address] * TRANSFUSE FRESH FROZEN PLASMA (01/12/2021 6:08 PM EDT) Only the most recent of2 resultswithin the time period is included. Jovi Cárdenas DO NURSING TREATMENT ORDERABLES - B LOOD ADMIN Final Result * TRANSFUSE CRYOPRECIPITATE (01/12/2021 6:07 PM EDT) Christianne Petty APRN NURSING TREATMENT ORDERABLES - BLOOD ADMIN Final Result * (ABNORMAL) TEG PLATELET MAPPING (01/12/2021 12:58 PM EDT) TEG PM - ActF MA 2.2 2 - [address] [facility] TEG PM - HKH MA 53.8 53 - [address] [facility] TEG PM - MA ADP 19.2(A) 45 - [address] [facility] TEG PM - Pct Aggregation ADP 32.9(A) 83 - 100 % [facility] TE[facility] PM - Pct Inhibition ADP 67.1(A) 0 - 17 % [facility] 01/12/2021 12:[address] [facility] - 01/12/2021 2:50 PM EDT Test Notes: ActF Calc=Fibrin; HKH Calc=Thrombin; ADP Calc=ADP; Cartridge Lot#=[id number] us Jovi A Avi DO HEMATOLOGY ORDERABLES Final Resu lt Performing Organization Address City/[facility]/ZIP Co de Phone Number [facility] [address] [place] [address] * TEG PLATELET MAPPING LAB PERFORMED (01/12/2021 12:49 PM EDT) Blood BLOOD SAMPLE TAKEN FROM CENTRAL LINE / Unknown Venipuncture / Unknown 01/12/2021 12:49 PM EDT 01/12/2021 12:55 PM EDT us Luemily A Avi DO HEMATOLOGY ORDERABLES Final Resu lt Performing Organization Address City/[facility]/ZIP Co de Phone Number [facility] [address] [facility], [place] [address] * Peripheral Block by Anesthesia (01/12/2021 12:10 PM EDT) Narrative [facility] - 01/12/2021 12:10 PM EDT Polly George MD 01/12/2021 12:11 PM Peripheral Block by Anesthesia Procedure Date/Time: 01/12/2021 12:03 PM Patient location during procedure: OR Reason for block: at surgeon's request and post-op pain management Staff and Pre-procedure checks Anesthesiologist: Polly George MD Performed: anesthesiologist Preanesthetic Checklist: Allergies confirmed, Block plan confirmed, Necessary block equipment present, Supplemental O2 applied, if needed, Anticoagulant confirmed, Block site marked, Patient identified- 2 criteria, Surgical procedure consent verified, Aseptic technique used, Drug/solution labeled, Resuscitaion equipment available, RUTH recommended monitors applied, IV access functioning, Sedation given, if needed and Resuscitation equipment available Immediate perianesthetic assessment completed: Yes Patient position: Supine Prep: Chloraprep and Patient Draped Monitoring: O2 Sat, EKG and BP Peripheral Block Block type: TAP Block Laterality: Bilateral Injection technique: single-shot Pain pump: no pain pump placed Medication: Bupivacaine 0.25% and Exparel 1.33% Needle Needle type: Echo Bright Nerve localization: ultrasound guidance and anatomical landmarks Assessment Block success: complete Events: Uneventful Heart rate change: no Blood aspirated: no Paresthesia pain: none Resistance on injection: normal Intermittent incremental injection LA at 5ml Ultrasound Image of the block is attached/scanned to the epic chart. us Polly George MD ANESTHESIA ORDERABLES Final Result [facility] [address] [place], [place] [id number] * (ABNORMAL) POCT ISTAT CG8 ARTERIAL (01/12/2021 11:41 AM EDT) Only the most recent of3 resultswithin the time period is included. Pathologist [facility] [place] Sodium-iSTAT 142 135 - 143 mmol/L 01/12/2021 11:45 AM EDT [facility] Potassium-iSTA T 3.9 3.5 - 5.0 mmol/L 01/12/2021 11:45 AM EDT [facility] iCA-iSTAT 1.30 1.12 - 1.32 mmol/L 01/12/2021 11:45 AM EDT [facility] Glucose-iSTAT 173(H) 70 - 105 mg/dL 01/12/2021 11:45 AM EDT [facility] Base Exc-iSTAT 0 -2 - 3 mmol/L 01/12/2021 11:45 AM EDT [facility] Hgb-iSTAT 10.2(L) 13.0 - 17.0 gm/dL 01/12/2021 11:45 AM EDT [facility] Hct-iSTAT 30(L) 40 - 52 % 01/12/2021 11:45 AM EDT [facility] pH iSTAT Art 7.304(L) 7.350 - 7.450 01/12/2021 11:45 AM EDT [facility] pCO2 iSTAT Art 54(H) 35 - 45 mmHg 01/12/2021 11:45 AM EDT [facility] pO2 iSTAT Art 109(H) 80 - 105 mmHg 01/12/2021 11:45 AM EDT [facility] Hco ISTAT Art Cg8 27(H) 22 - 26 mmol/L 01/12/2021 11:45 AM EDT [facility] TCO2 iSTAT Art 28(H) 23 - 27 mmol/L 01/12/2021 11:45 AM EDT [facility] O2 Sat iSTAT Art 98 95 - 98 % 01/12/2021 11:45 AM EDT [facility] Inspired O2-iSTAT 60.00 % 01/12/2021 11:45 AM EDT [facility] CPB Applied. No 01/12/2021 11:45 AM EDT [facility] Blood ARTERIAL BLOOD / Unknown 01/12/2021 11:41 AM EDT 01/12/2021 11:45 AM EDT Ricky Tomlin MD POINT OF CARE TEST ORDERABLES Final Result Performing Organization Address [facility] [place] [address] * INTRAOP AIRWAY PLACEMENT (01/12/2021 8:51 AM EDT) Narrative [facility] - 01/12/2021 8:51 AM EDT Neema Mendez CRNA 01/12/2021 8:52 AM Intraop Airway Placement: Date/Time: 01/12/2021 8:10 AM Induction type: IV Mask size: Standard adult Pre-Oxygenation: Standard Mask ventilation: Easy mask ventilation and Moderate mask ventilation Mask ventilation improved by: Oral airway Oral airway sizes: 100 Technique: Direct laryngoscope Laryngoscope blade: Guallpa Blade size: 3 Grade view: I Airway type: ETT- cuffed Topical Anesthetic/Lubricant: None Intubation assist devices: Stylet 14fr Airway location: Oral Device size: 8mm Secured at: 21 cm Secured by: Tape Measured from: Lips Placement verified: Auscultation, End tidal CO2 and Symmetric chest wall motion Condition: Unchanged and Atraumatic Insertion attempts: 1 Attempt 1 by: Naveen Mendez Title: BREAD DOUGH MIXER us Polly George MD [place] ANESTHESIA Final Result Performing Organization Address [facility] [place] [address] * ANE ARTERIAL LINE PLACEMENT (01/12/2021 7:50 AM EDT) Narrative [facility] - 01/12/2021 7:50 AM EDT Polly George MD 01/12/2021 7:51 AM Arterial Line Placement Procedure Date/time: 01/12/2021 7:38 AM Patient Location: Pre-op Indication: Continuous blood pressure monitoring Pre-Procedure checklist: RUTH recommended monitors applied, IV access functioning, Timeout performed, Procedure consent verified, Aseptic technique used, Supplemental O2 applied, if needed, Allergies confirmed, Patient identified- 2 criteria and Sedation given, if needed Anesthesiologist: Polly George MD Placed By: Anesthesiologist Sterility prep: Provider hand hygiene prior to procedure and Provider used sterile gloves, gown, hat, mask Skin prep: Chloraprep Local anesthetic: Lidocaine 1% 5ml intraderml Catheter Size: 20 guage Catheter Type: Arrow Technique: Pulse Palpation Laterality: Right Site: Radial Insertion attempts: 1 Line Secured: Tegaderm and Biopatch applied Events: Patient tolerated procedure well with no complications Ultrasound Image of the block is attached/scanned to the epic chart. Polly George MD ANESTHESIA ORDERABLES Final Result Performing Organization Address City/State/[facility] Co de Phone Number [facility] [address] [place] [phone] * ANE INTRODUCER PLACEMENT (01/12/2021 7:49 AM EDT) Narrative [facility] - 01/12/2021 7:49 AM EDT Polly George MD 01/12/2021 7:50 AM Central Line / Introducer Placement Procedure Date/Time: 01/12/2021 7:23 AM Patient Location: Pre-op Indication: Central Venous Access Pre-Procedure checklist: Patient identified- 2 criteria, Sedation given, if needed, Allergies confirmed, Supplemental O2 applied, if needed, Procedure consent verified, Aseptic technique used, Timeout performed, RUTH recommended monitors applied and IV access functioning Ultrasound-Guided: Ultrasound guided and Surface landmarks Anesthesiologist: Polly George MD Placed By: Anesthesiologist Sterility prep: Provider hand hygiene prior to procedure, Provider used sterile gloves, gown, hat, mask and Sterile full body drape was used Prep: Chloraprep Patient position: Trendelenburg Laterality: Right Site: Internal jugular Catheter Type: Introducer Intravenous Verification: Ultrasound Insertion attempts: 1 Post Insertion: All ports aspirated, Guidewire was removed intact, Line was sutured in place, All ports flushed easily, Biopatch was applied and Sterile dressing applied Events: Patient tolerated well with no complications Ultrasound image documentation is attached/scanned in epic chart. us Polly George MD ANESTHESIA ORDERABLES Final Result Performing Organization Address [facility] Co de Phone Number [facility] [address] [place] [address] * BB HISTORY CHECK (01/12/2021 6:10 AM EDT) Only the most recent of2 resultswithin the time period is included. BB HISTORY CHECK (1) Previous History OK 01/12/2021 6:19 AM EDT [facility] Blood VENOUS BLOOD / Unknown Venipuncture / Unknown 01/12/2021 6:10 AM EDT 01/12/2021 6:18 AM EDT us Ricky Tomlin MD BLOOD BANK ORDERABLES Final R esult Performing Organization Address [facility] Co de Phone Number [facility] [address] [address] * ABORH (01/12/2021 6:10 AM EDT) Only the most recent of2 resultswithin the time period is included. Pathologist [facility] [place] ABORH Int A POS 01/12/2021 6:5 6 AM EDT [facility] Blood VENOUS BLOOD / Unknown Venipuncture / Unknown 01/12/2021 6:10 AM EDT 01/12/2021 6:18 AM EDT us Ricky Tomlin MD BLOOD BANK ORDERABLES Final R esult Performing Organization Address [facility] Co de Phone Number [facility] [address] [address] * SCANNED EKG (01/11/2021 10:07 AM EDT) Anatomical Region Laterality Modality Other 01/11/2021 10:0 7 AM EDT us Unknown Unknown IMG ECG ORDERABLES Final Result * RED BLOOD CELLS REQUEST (12/28/2020 11:16 AM EDT) Only the most recent of3 resultswithin the time period is included. Product Code [id number] [facility] Unit Number [id number] [facility] Crossmatch Interp Compatible [facility] Dispense Status RETURNED [facility] Blood Expiration Date [facility] ISBT 128 Type [address] [facility] BLOOD [facility] BA CODING SYSTEM [id number] [facility] Blood Type (Unit) A POS [facility] Product Code [id number] [facility] Unit Number [id number] [facility] Crossmatch Interp Compatible [facility] Dispense Status RETURNED [facility] Blood Expiration Date [facility] ISBT 128 Type [address] [facility] BA CODING SYSTEM [id number] [facility] Blood Type (Unit) A POS [facility] Product Code [id number] [facility] Unit Number [id number] [facility] Crossmatch Interp Compatible [facility] Dispense Status RETURNED [facility] Blood Expiration Date [facility] ISBT 128 Type [address] [facility] BA CODING SYSTEM [id number] [facility] Blood Type (Unit) A POS [facility] Product Code [id number] [facility] Unit Number [id number] [facility] Crossmatch Interp Compatible [facility] Dispense Status RETURNED [facility] Blood Expiration Date [facility] ISBT 128 Type [address] [facility] BLOOD [facility] BA CODING SYSTEM [id number] [facility] Blood Type (Unit) A POS [facility] Blood 12/28/2020 11:1 6 AM EDT 12/28/2020 11:20 AM EDT us Ricky Tomlin MD BLOOD PRODUCT ORDERS Final Re sult Performing Organization Address [facility] Co de Phone Number [address] [address] * SURGERY DATE (12/28/2020 11:16 AM EDT) Surgery Date (1) Complete 12/28/2020 11:38 AM EDT [facility] Blood VENOUS BLOOD / Unknown Venipuncture / Unknown 12/28/2020 11:16 AM EDT 12/28/2020 11:19 AM EDT Berenice Perez APRN BLOOD BANK ORDERABLES Final R esult Performing Organization Address [facility] Co de Phone Number [address] [address] * ANTIBODY SCREEN IGG (12/28/2020 11:16 AM EDT) ABSC IgG Int Negative 12/28/2020 1:08 PM EDT [facility] B[facility]OD [facility] Blood VENOUS BLOOD / Unknown Venipuncture / Unknown 12/28/2020 11:16 AM EDT 12/28/2020 11:19 AM EDT Berenice Perez MOLDING LINE OPERATOR BLOOD BANK ORDERABLES Final R esult Performing Organization Address [facility] Co de Phone Number [facility]OD [address] [address] * SCANNED RADIOLOGY REPORT (11/29/2020 8:07 AM EDT) Anatomical Region Laterality Modality Other 11/29/2020 8:07 AM EDT us Unknown Unknown IMG DIAGNOSTIC IMAGING ORDERABLE S Final Result Visit Diagnoses Diagnosis Start Date Abdominal aortic aneurysm (AAA) without rupture 11/26/2020 Smoking Tobacco use disorder 11/26/2020 Essential hypertension Unspecified essential hypertension 11/26/2020 Moderate mixed hyperlipidemia not requiring statin therapy 11/26/2020 Iliac artery occlusion, 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 11/26/2020 Coronary artery disease involving salamatof coronary artery of salam[place]of heart without angina pectoris 11/26/2020 Abdominal aortic aneurysm (AAA) without rupture 11/29/2020 Preop testing Preoperative examination, unspecified 12/28/2020 Abdominal aortic aneurysm (AAA) without rupture 12/28/2020 Abdominal aortic aneurysm (AAA) without rupture 01/12/2021 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 01/14/2021 Dehiscence of fascia, initial encounter 01/14/2021 Abdominal aortic aneurysm (AAA) without rupture 01/12/2021 AAA (abdominal aortic aneurysm) without rupture Abdominal aneurysm without mention of rupture 02/04/2021 S/P AAA repair Other postprocedural status 02/04/2021 PVD (peripheral vascular disease) Peripheral vascular disease, unspecified 02/04/2021 AAA (abdominal aortic aneurysm) without rupture Abdominal aneurysm without mention of rupture 10/05/2021 S/P AAA repair Other postprocedural status 10/05/2021 Femoral artery aneurysm, 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 10/05/2021 Cigarette nicotine dependence with other nicotine-induced disorder 10/05/2021 PVD (peripheral vascular disease) Peripheral vascular disease, unspecified 10/05/2021 AAA (abdominal aortic aneurysm) without rupture Abdominal aneurysm without mention of rupture 10/05/2021 S/P AAA repair Other postprocedural status 10/05/2021 Abdominal aortic aneurysm (AAA) without rupture, unspecified part 07/24/2022 S/P AAA repair Other postprocedural status 07/24/2022 S/P aorto-bifemoral bypass surgery Other postprocedural status 07/24/2022 Femoral artery aneurysm, 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 07/24/2022 Cigarette nicotine dependence with other nicotine-induced disorder 07/24/2022 PAD (peripheral artery disease) Unspecified disorders of arteries and arterioles 07/24/2022 Incisional hernia, without obstruction or gangrene Incisional hernia without mention of obstruction or gangrene 07/24/2022 AAA (abdominal aortic aneurysm) without rupture Abdominal aneurysm without mention of rupture 07/24/2022 S/P AAA repair Other postprocedural status 07/24/2022 Femoral artery aneurysm, 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 07/24/2022 Right inguinal hernia Inguinal hernia without mention of obstruction or gangrene, unilateral or unspecified, (not specified as recurrent) 02/14/2024 Abdominal aortic aneurysm (AAA) without rupture 01/12/2021 Coronary artery disease involving salam[place]of coronary artery of salam[place] heart without angina pectoris 01/12/2021 Essential hypertension Unspecified essential hypertension 01/12/2021 Iliac artery occlusion, 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 01/12/2021 Moderate mixed hyperlipidemia not requiring statin therapy 01/12/2021 Hemorrhagic shock (HCC) Other shock without mention of trauma 01/12/2021 Coagulopathy Other and unspecified coagulation defects 01/12/2021 Postoperative hemorrhage involving circulatory system following circulatory system procedure 01/12/2021 Dyspnea Other dyspnea and respiratory abnormality 01/12/2021 Tobacco abuse Tobacco use disorder 01/12/2021 Tobacco abuse counseling Counseling on substance use and abuse 01/12/2021 Pleural effusion, bilateral Unspecified pleural effusion 01/12/2021 Acute respiratory failure with hypoxia (HCC) Acute respiratory failure 01/12/2021 Care Teams Wire Harness Assembler Relationship Specialty Start Date End Date Valerio Zayas MD PCP - General Family Medicine 02/04/21
== END 2025-03-16 23:59 | disposition home or self-care (01) ==
LOC: LAB.DROPOF 03-24 11:19
PROVIDERS: PCP Family Medicine; Visit Provider Family Medicine
DX: C61 Malignant neoplasm of prostate (principal); J44.9 Chronic obstructive pulmonary disease, unspecified
CPT/HCPCS: 80053; 80061; 84443; 85025; G0103

== ENCOUNTER 2025-03-27 07:26 | Outpatient (CLI) | payer MEDICARE, SELFPAY ==
--- OUTSIDE RECORDS SUMMARY | 2025-03-27 07:29 | XMS_ITS | Data Portability ---
Author Organization [facility] Address [address] [place] [address] Assessment Encounter Date Assessment Date Assessment LastModified by Organization Details LastModified Time 01/28/2018 01/28/2018 SURGERY DATE: 01/28/2018 PREOPERATIVE DIAGNOSIS: Elevated PSA. POSTOPERATIVE DIAGNOSIS: Elevated PSA. PROCEDURE: Transrectal ultrasound with prostate biopsy. ANESTHESIA: Local. ESTIMATED BLOOD LOSS: COMPLICATIONS: None. CONDITION: Stable. SURGEON: Emily Flores MD INDICATIONS: This is a 62-year-old white male with PSA elevation of 9.4 and a suspicious prostate exam, presents for prostate biopsy today. OPERATIVE NOTE: The patient was taken to the operating room after informed consent was obtained. On the stretcher, he placed into the left lateral decubitus position. He had performed preoperative enema and antibiotics. Transrectal ultrasound probe was placed into the rectum and the prostate was visualized easily. It was measured at 26.7 cubic cm. There was evidence of hypoechoic area on his left side. Local anesthetic placed into each neurovascular bundle and 12 biopsies were then taken in a systematic fashion including through the hypoechoic area. Probe removed. The patient tolerated it well and discharged to home with routine instructions. He is to call me on for the results. [email or web address] Not available 01/29/2018 07:52:11 05/04/2023 05/04/2023 SURGERY DATE: 05/04/2023 PREOPERATIVE DIAGNOSIS: Prostate cancer. POSTOPERATIVE DIAGNOSIS: Prostate cancer. PROCEDURE: Transrectal ultrasound-guided insertion of gold fiducial markers (5). ANESTHESIA: Local. SURGEON: Claudy Galvan MD INDICATIONS: This is a 68-year-old gentleman who had prostate cancer diagnosed by Dr. Elijah Kingsley. He then saw Dr. Alexandr Mo at [facility] and has decided on CyberKnife radiosurgery to his prostate cancer, 4+ 3 equals 7 and PSA of 17. OPERATIVE NOTE: The patient was placed on the operating room table in the left lateral decubitus position. The B and K transrectal ultrasound probe was introduced into the rectum. 10 mL of 1% Xylocaine was injected at the base and apex of the prostate for local anesthesia. The ultrasound was then used to guide gold fiducial markers into the right lateral, left lateral, apex, base, and under the anterior surface of the prostate. The probe was then removed atraumatically and he was taken to the recovery room in stable condition. There were no complications. [email or web address] Not available 05/04/2023 18:45:45 Plan of Treatment Reminders Order Date Submit Date Provider Last Modified By Organization Details Last Modified Time Details Appointments None record ed. Lab None record ed. Referral None record ed. Procedures None record ed. Surgeries None record ed. Imaging None record ed. Medication Orders None record ed. Patient TargetsNo targets recorded. Patient InstructionsNo instructions recorded. Reason for Referral None Reported. Results Created Date Observation Date Name Description Value Unit Range Abnormal Flag Note LastModifiedBy Organization Detail LastModifiedTime 01/29/20 18 01/28/2018 surgi viki patho logy study surgical pathology procedure SEE BELOW Depar tment of Patho logy Surgi viki Patho logy Repor t NAME: MOE AIKEN PATH. :[id number] Copy to: Diagn osis: Prost ate needl e core biops ies (A-L) : A) Left base: Benig n prost atic tissu e. B) Left mid: Benig n prost atic tissu e. C) Left apex: Benig n prost atic tissu e. D) Right base: Benig n prost atic tissu e. E) Right mid: Benig n prost atic tissu e. F) Right apex: Benig n prost atic tissu e. G) Left later al base: Benig n prost atic tissu e. H) Left later al mid: Benig n prost atic tissu e. I) Left later al apex: Benig n prost atic tissu e. J) Right later al base: Benig n prost atic tissu e. K) Right later al mid: Benig n prost atic tissu e. L) Right later al apex: Benig n prost atic tissu e. SOURC E OF SPECI MEN: PROST ATE BIOPS Y, A.) LEFT BASE PROST ATE BIOPS Y, C.) LEFT APEX PROST ATE BIOPS Y, E.) RIGHT MID PROST ATE BIOPS Y, G.) LEFT LAT BASE PROST ATE BIOPS Y, I.) LEFT LAT APEX PROST ATE BIOPS Y, K.) RIGHT LAT MID CLINI VIKI INFOR MATIO N: [id number] ELEVA DANIEL PSA LEVEL - 9.4 Gross Descr iptio n: Recei kenny in forma chapincito label ed with the patie nt's name are twelv e speci mens desig nated as prost ate biops y. All tissu e consi sts of escudero cylin ders 0.[address]. If tissu e from two sites is place d in one casse tte, the latte r site is inked black ; e.g. if tissu es from site A and B are in one casse tte, the tissu es from site B are inked . SECTI ON LENGT H IN CENTI METER S A) Left Base 1.5 cm (1 core) B) Left Mid 1.6 cm (1 core) C) Left Sanders 1.5 cm (1 core) D) Right Base 1.5 cm (1 core) E) Right Mid 1.5 cm (1 core) F) Right Sanders 1.5, 1.5 cm (2 cores ) G) Left Lat Base 1.5 cm (1 core) H) Left Lat Mid 1.3 cm (1 core) I) Left Lat Sanders 1.5 cm (1 core) J) Right Lat Base 1.5 cm (1 core) K) Right Lat Mid 1.6 cm (1 core) L) Right Lat Sanders 1.5 cm (1 core) TONEY 01/29 11:07 AM Micro scopi c Descr iptio n: Secti ons from the needl e core biops y mater ial demon strat e benig n prost atic gland s and cedric a. Patch y chron ic infla mmati on is seen in a few of the core biops ies. No high grade PIN or malig marcia is seen. FOUZIA DURAN M.D. [place] Out Date: 01/30 10:32 Page 1 of 1 Not Available [facility] [address] [place] [address], [phone], 01/30/2018 10:33:48 Result Notes None recorded. Medical Equipment None Reported. Medications Name Sig Start Date Stop Date Status Note LastModified by Organization Details LastModified Time atorvastatin 40 mg tablet active Not Available Not Available Not Available clobetasol 0.05 % topical cream active Not Available Not Availabl e Not Available clopidogrel 75 mg tablet active Not Available Not Available Not Available ciprofloxacin 500 mg tablet active Not Available Not Available No t Available sulfamethoxazole 800 mg-trimethoprim 160 mg tablet active Not Available Not Availabl e Not Available bisoprolol 2.5 mg-hydrochlorothia zide 6.25 mg tablet active Not Available Not Available Not Available oxycodone-acetamin ophen 5 mg-325 mg tablet active Not Available Not Available Not Available tamsulosin 0.4 mg capsule active Not Available Not Available Not Available pantoprazole 40 mg tablet,delayed release active Not Available Not Available Not Available nitroglycerin 0.4 mg sublingual tablet active Not Available Not Available Not Available doxazosin 4 mg tablet active Not Available Not Available Not Available gabapentin 100 mg capsule active Not Available Not Available Not Available levofloxacin 500 mg tablet active Not Available Not Available No t Available albuterol sulfate HFA 90 mcg/actuation aerosol inhaler active Not Available Not Availa ble Not Available lisinopril 2.5 mg tablet active Not Available Not Available Not Available alfuzosin ER 10 mg tablet,extended release 24 hr active Not Available Not Availabl e Not Available Vitals None Recorded Social History None recorded. Functional Status None recorded. Mental Status None recorded. Family History Nothing Reported. Medical History No medical history recorded. Past Encounters Encounter ID Performer Location Encounter Start Date Encounter Closed Date Diagnosis/Indication Diagnosis SNOMED-CT Code Diagnosis ICD10 Code Diagnosis Note [id number] EMILY FLORES MD SURGERY SCHEDULE [address] [place] [phone] 01/28/2018 13:47:01 01/28/2018 13:48:22 [id number] CLAUDY GALVAN MD SURGERY SCHEDULE [address] [place] [phone] 05/04/2023 14:05:10 05/04/2023 14:10:01 Health Concerns Section Related Observation LastModified by Organization Detai ls LastModified Time None Recorded Concern Status LastModified by Organization Details LastModified Time None Recorded Advance Directives Directive None Recorded Payers Insurance Date Sequence Insurance Name Policy Number Policy Senior Covered Member ID Senior Member ID Guarantor Name 08/11/2020 1 [place] [id number] Drew Aiken [id number] Drew Aiken 10/16/2023 1 [place]AC[place] H[place] [id number] Drew Aiken [id number] Drew Aiken 01/28/2018 1 [place] Drew Aiken [id number] Drew Aiken
--- NOTE | 2025-03-27 07:30 | CT_ITS ---
FINAL REPORT CLINICAL HISTORY: lung cancer screening current smoker 1ppd x55 years COMPARISON: CT of the chest 08/31/2020 FINDINGS: CT CHEST LOW DOSE SCREENING HISTORY: Screening exam for lung cancer. 69-year-old male, current smoker, [id number]-xbbe-tdyv history DOSE: CTDI vol: 2.90 mGy, DLP: 118.55 mGy*cm TECHNIQUE: Axial CT without IV contrast administration using low dose protocol. This study was performed with techniques to keep radiation doses as low as reasonably achievable, (ALARA). Individualized dose reduction techniques using automated exposure control or adjustment of mA and/or kV according to the patient's size were employed. No acute lung disease is present. There is a new right upper lobe nodule adjacent to the minor fissure best seen on image #58 of series 3, measuring 5 mm in size. The previously noted peripheral nodule in the left upper lobe now measures 3 mm, was previously 8 mm. There are advanced changes of emphysema present. Granulomatous disease is noted. No pleural or pericardial effusion is seen. No adenopathy or mass lesion is present. IMPRESSION: 1. New right upper lobe 5 mm nodule, favor granuloma or intrafissural node. 2. Old calcified granulomatous disease. LUNG RADS CATEGORY 3 RECOMMENDATION: 6 month LDCT follow up Reviewed, Interpreted and Dictated by Austin Rosas MD Transcribed by Christina Antoine Authenticated and [facility]
--- OUTSIDE RECORDS SUMMARY | 2025-03-27 07:30 | XMS_ITS | Data Portability ---
Author Organization [place] - [facility] - [facility] Johana [facility] ADMIN Address [address] [place] [id number] Assessment Encounter Date Assessment Date Assessment LastModified by Organization Details LastModified Time 10/18/2022 10/18/2022 4-K score today. We will obtain records and pathology from [facility]/Dr. Bailey for our review. [email or web address] Not available 10/18/2022 14:57:34 11/01/2022 11/01/2022 In lieu of 4K score and elevated PSA results, will be scheduling MRI of the prostate. Renal panel ordered. Pt requested to have appointment scheduled a week out to allot time to schedule with the transportation service. [email or web address] Not available 11/01/2022 16:58:05 12/06/2022 12/06/2022 MRI and lab findings discussed in detail with patient. I recommend fused/targeted biopsies. Risks of bleeding, infection,injury to pelvic structures, and AUR with possible catheter need. Possible medical and anesthetic risks. Prep instructions given to patient in verbal and written form. Stop any and all anticoagulants. NPO after midnight the night before the procedure. Need tow driver following the procedure. The patient is also given the option of a watch and wait approach in lieu of his significant cardiovascular comorbidity. He would like to proceed with biopsies as outlined. [email or web address] Not available 12/07/2022 08:42:18 03/15/2023 03/15/2023 I have reviewed the pathology with the patient. Again his biggest challenges transportation which is the focal point of most of the conversation. I have recommended a staging workup which will include chest x-ray, bone scan and serologies which he would like to have done close to his home at [facility]. I have discussed with him briefly some treatment options and it appears that he may be heading in the direction of medical therapeutic / ADT. If this is the case I would like to have this under the guidance of a medical oncologist and would refer him to Dr. Linn. Will await the results of his staging workup and phone call before moving forward with the management approach he will choose. He tells me that his PCP had suggested possible radioactive seed placement, however, I feel there are better options. [email or web address] Not available 03/15/2023 13:30:27 03/26/2023 03/26/2023 I have counseled patient on his recent pathology and staging workup. I have discussed treatment options with the patient. The patient does have significant medical comorbidity and significant medical transportation issues but is interested in a possible curative therapeutic approach. He would like to entertain the possible option of [employer] and I will be referring him to a trusted colleague, Dr. Mo and associates at [facility] in [place]. [email or web address] Not available 03/26/2023 17:08:57 Plan of Treatment Reminders Order Date Submit Date Provider Last Modified By Organization Details Last Modified Time Details Appointments None recorded. Lab urinalysis , dipstick 2022 023 [email or web address] [facility], [address] [place] [address], [address], [place], [address], 14:24:05 Referral None recorded. Procedures None recorded. Surgeries None recorded. Imaging None recorded. Medication Orders None recorded. Patient TargetsNo targets recorded. Patient InstructionsNo instructions recorded. Reason for Referral None Reported. Results Created Date Observation Date Name Description Value Unit Range Abnormal Flag Note LastModifiedBy Organization Detail LastModifiedTime 10/18/1910/18/2022 urina lysis , dipst ick Leukocytes (reference range) negati ve Not Available [facility] [address] [place] [address] [address], [place], [address], 10/18/2022 14:08:51 10/18/19 23 10/18/2022 urina lysis , dipst ick Nitrite (reference range:) negati ve Not Available [facility] [address] [place] [address] [address], [place], [address], 10/18/2022 14:08:51 10/18/19 23 10/18/2022 urina lysis , dipst ick Urobilinogen (reference range) 0.2 Not Available [facility] [address], [place], [address], 10/18/2022 14:08:51 10/18/19 23 10/18/2022 urina lysis , dipst ick Protein (reference range) negati ve Not Available [facility] [address], [place], [address], 10/18/2022 14:08:51 10/18/19 23 10/18/2022 urina lysis , dipst ick pH (reference range 5-8.5) 6.5 Not Available [facility] [address], [place], [address], 10/18/2022 14:08:51 10/18/19 23 10/18/2022 urina lysis , dipst ick Blood (reference range:) negati ve Not Available [facility] [address], [place], [address], 10/18/2022 14:08:51 10/18/19 23 10/18/2022 urina lysis , dipst ick Specific [place] (reference range) 1.015 Not Available [facility] [address], [place], [address], 10/18/2022 14:08:51 10/18/19 23 10/18/2022 urina lysis , dipst ick Ketone (reference range) negati ve Not Available [facility] [address], [place], [address], 10/18/2022 14:08:51 10/18/19 23 10/18/2022 urina lysis , dipst ick Bilirubin (reference range) negati ve Not Available [facility] [address], [place], [address], 10/18/2022 14:08:51 10/18/19 23 10/18/2022 urina lysis , dipst ick Glucose (reference range) negati ve Not Available [facility] [address] [facility], [place], [address], 10/18/2022 14:08:51 10/18/19 23 10/18/2022 urina lysis , dipst ick Color (reference range: yellow-brown ) Yellow Not Available [facility] [address], [place], [address], 10/18/2022 14:08:51 11/17/19 23 11/16/2022 MRI, prost ate, w/wo contr ast No observ ation record ed. [email or web address] [facility] [address], [place], [address], 11/27/2022 14:11:15 03/21/20 23 03/21/2023 XR, chest , 2 view No observ ation record ed. Not Available 2022 14:16:37 03/21/20 23 03/21/2023 XR, cervi viki spine , 2 or 3 view No observ ation record ed. [email or web address] Not Available 2022 11:48:51 03/21/20 23 03/21/2023 NM, bone scan, whole body No observ ation record ed. [email or web address] Not Available 2022 16:52:28 Result Notes None recorded. Problems Name Problem SNOMED Code Status Onset Date Resolution Date Notes Provider Name and Address Organization Details Recorded Time Heart failure 67832071 Active 2022 DAVID Corona - [place] [facility] [place] 3 13:40:59 Irregular heart beat 193065462 Active 2022 DAVID Corona - [place] [facility] [place] 3 13:41:13 Acute stroke 4157305101786 04 Active 2022 DAVID Corona [facility] [place] [facility] [place] 3 13:41:26 Myocardial infarction 56086514 Active 2022 DAVID Corona [facility] - [place] [facility] [place] 3 13:41:35 Arthritis 1217837 Active 2022 DAVID Corona [facility] [place] [facility] [place] 3 13:41:47 Prostate specific antigen above reference range 681713058 Active 2022 DAVID Corona [facility] [place] [facility] [place] 3 13:42:05 Large prostate 596281534 Active 2022 DAVID Dolan [facility] & [place] 3 12:53:40 Disorder of cardiovascu lar system 74635200 Active 2022 DAVID Dolan [facility] [facility] [place] 3 12:53:46 Problem Notes None recorded. Medical Equipment None Reported. Allergies Allergen ID Allergen Name Allergen Category Reaction Reaction Severity Criticality Documentation Date Start Date Code Code System Note Provider Name and Address Organization Details Recorded Time 74075 cyclobenz aprine hydrochlo ride medicatio n Not available Not available Not available 10/18/2022 78219 RxNorm DAVID Corona [place] [facility] [place] 3 13:40:26 Medications Name Sig Start Date Stop Date Status Note LastModified by Organization Details LastModified Time atorvastatin 40 mg tablet active Not Available Not Available Not Available clopidogrel 75 mg tablet active Not Available Not Available Not Available sulfamethoxazole 800 mg-trimethoprim 160 mg tablet [...] active Not Available Not Available Not Available albuterol sulfate HFA 90 mcg/actuation aerosol inhaler active Not Available Not Availa ble Not Available Vitals Date Recorded Body height Body mass index (BMI) Body weight Body temperature Systolic And Diastolic Provider Name and Address Organization Details Last Updated DateTime 10/18/2022 182.88 cm 20.3 kg/m2 46991.4 2 g 97.5 [degF] 126/74 mm[Hg] Jennifer Wang NP, [address] [facility], [place], [address] , [facility] & [place] 14:20:57 Social History Question Answer Notes LastModified by [employer] Details LastModified Time Tobacco Smoking Status Current Every Day Smoker Belkis Goetz [facility], [facility] & [place] 10/18/2022 13:42:42 How Much Tobacco Do You Smoke? 1 PPD Information not available 10/18/2022 Sex: Unknown Functional Status Question Answer Note LastModified by [employer] Details LastModified Time Do you use any illicit or recreational drugs? No Information not available 10/18/2022 What is your level of alcohol consumption? None Information not available 10/18/2022 Mental Status None recorded. Family History Nothing Reported. Medical History Condition Response Heart Disease Y Past Encounters Encounter ID Performer Location Encounter Start Date Encounter Closed Date Diagnosis/Indication Diagnosis SNOMED-CT Code Diagnosis ICD10 Code Diagnosis Note [id number] Jaya Kingsley MD [facility] [address] [place] [address] 10/18/2022 13:33:08 10/18/2022 15:37:21 Prostate specific antigen above reference range 255806527 R97.20 Large prostate 009997184 N40.0 mild Disorder o f cardiovascular system 78899156 I99.9 history of atheroscle rosis with history of CA and CVA x2 [id number] Jaya Kingsley MD [facility] [address] [place] [address],[facility] [address] [place] [address] 11/01/2022 16:49:14 11/03/2022 12:20:34 Prostate specific antigen above reference range 716627992 R97.20 Large prostate 935678418 N40.0 Mild Disorder o f cardiovascular system 08299408 I99.9 History of atheroscle rosis with history of CA and CVA x2 [id number] Jaya Kingsley MD [facility] [address] [place], [place] [address]it [address] [place] [address] 12/06/2022 17:02:48 12/07/2022 09:08:58 Prostate specific antigen above reference range 267736639 R97.20 Large prostate 294867501 N40.0 Mild Irregular heart beat 361 409941 R00.8 Disorder o f cardiovascular system 87203263 I99.9 History of atheroscle rosis with history of CA and CVA x2 MRI of pel vis abnormal 2428449372 9526922 R93.89 [id number] Jaya Kingsley MD [facility] [address] [place], [place] [address]it [address] [place] [id number] 03/15/2023 11:45:28 03/15/2023 15:42:56 Carcinoma of prostate 087908219 C61 History of cerebrovascular accident 655143136 Z86.73 History of myocardial infarction 497328979 I25.2 [id number] Jaya Kingsley MD [facility] [address] [place], [place] [address] 03/26/2023 17:01:10 03/27/2023 08:25:53 Carcinoma of prostate 381004831 C61 Health Concerns Section Related Observation LastModified by Organization Detai ls LastModified Time None Recorded Concern Status LastModified by Organization Details LastModified Time None Recorded Advance Directives Directive None Recorded Payers Insurance Date Sequence Insurance Name Policy Number Policy Senior Covered Member ID Senior Member ID Guarantor Name 03/26/2023 1 [place]MEDICARE REPLACEMENT/A DVANTAGE - HMO) [id number] Drew Aiken [id number] Drew Aiken Notes Date Note Type Note Provider Name and Address Organization Details Recorded Time 10/18/2022 text/html Location: Serum, PSAQuality: ElevatedSeverity: N/AStarted/Duration: 6-years ago first elevated PSAOnset/Timin08/25/22 - screeningContext: No family history of prostate cancer. History of X2 in 2022. History of CA in 2011. Route Process Administrator is Dr. Davidson. Has two stents. On Plavix. No history of UTIs or kidney stones.Modifying Factor/Therapy: Flomax - been on for 1-yearAssociated System: Has lost 50lbs in 1-year. Urinary stream weak. Nocturia 0-1X. No dysuria, gross hematuria, or pain.Previous Evaluation: ElevatedPrevious Labs: Hx of proir prostate biopsies. Outside labs scanned after reviewPrevious Treatment: Cipro x 4 weeks via PcPPCP: Patient has a substantial amount of medical comorbidity, primarily vascular. He has a history of strokes, CA, and open AAA repair. History of elevated PSA 5-6 years ago and patient saw Dr. Rueda in [place] - he had prostate biopsies done at [facility] that were negative. Patient was told he had a fungal infection. Patient has been treated with a 4-week course of Cipro. Patient is experiencing burning with bowel movement. He notes a raw and irritating rash. Jaya Kingsley MD [address] [facility], [place], [address], [place] - [facility] - [place] [facility] [place] 10/18/2022 15:00:07 11/01/2022 text/html Phone consult Telephone consultation conducted with patient today. Patient gives informed consent and 100% of consult spent counseling patient, reviewing records and implementing treatment plan. Consult begins at 4:49 p.m. and ends at 4:58 p.m. phone consultation today with patient to discuss recent 4K score and PSA data. Patient was initially seen on 10/18/2022 with a history of elevated PSA with previous biopsies by another provider. Patient has significant cardiovascular comorbidity. He underwent a 4K score on 10/25/2022 which returned elevated at 92.9%. The PSA at that time was 17.02. There been no new issue since his last visit. Past history from 10/18/22: {Location: Serum, PSAQuality: ElevatedSeverity: N/AStarted/Duration: 6-years ago first elevated PSAOnset/Timin08/25/22 - screeningContext: No family history of prostate cancer. History of X2 in 2022. History of CA in 2011. Route Process Administrator is Dr. Davidson. Has two stents. On Plavix. No history of UTIs or kidney stones.Modifying Factor/Therapy: Flomax - been on for 1-yearAssociated System: Has lost 50lbs in 1-year. Urinary stream weak. Nocturia 0-1X. No dysuria, gross hematuria, or pain.Previous Evaluation: ElevatedPrevious Labs: Hx of proir prostate biopsies. Outside labs scanned after reviewPrevious [facility]Patient has a substantial amount of medical comorbidity, primarily vascular. He has a history of strokes, CA, and open AAA repair. History of elevated PSA 5-6 years ago and patient saw Dr. Rueda in [place] - he had prostate biopsies done at [facility] that were negative. Patient was told he had a fungal infection. Patient has been treated with a 4-week course of Cipro. Patient is experiencing burning with bowel movement. He notes a raw and irritating rash.} Jaya Kingsley MD [address], [place], [address], [facility] 11/03/2022 09:12:59 12/06/2022 text/html Phone consult Telephone consultation conducted with patient today. Patient gives informed consent and 100% of consult spent counseling patient, reviewing records and implementing treatment plan. Consult begins at 5:02 p.m. and ends at 5:09 p.m. Patient has a history elevated PSA along with significant medical comorbidity including history of stroke, CA and abdominal aortic aneurysm repair. He is had previous prostate biopsies that have been negative. A PSA on 10/23/2022 was 17.02 with a 4K score of 92.9%. The patient underwent a prostate MRI on 11/16/2022 which showed a prostate of 50 g and PI-RADS 5 lesion in the right posterior peripheral zone at the level of the base of the gland with possible extracapsular extension this had increased from a PI-RADS 4 to a PI-RADS 5. There was also PI-RADS 3 lesions on the left side. The patient tells me that his heart is doing real good. Jaya Kingsley MD [address], [place], [address], [facility] & [place] 12/07/2022 08:44:38 03/15/2023 text/html Phone consult Telephone consultation conducted with patient today. Patient gives informed consent and 100% of consult spent counseling patient, reviewing records and implementing treatment plan. Consult begins at 11:45 a.m. and ends at 11:51 a.m. phone consult conducted today with patient to discuss recent pathology that was obtained from prostate biopsies done through a transperineal fused/targeted as well as a stereotactic peripheral zone saturation biopsy approach. The patient did well post biopsy but did experience rhinitis for a couple of days but no urologic issues. Pathology revealed Mcneil 3 + 4 adenocarcinoma in a right posterior lateral biopsy. Joesph 4 + 3 in the right base biopsy and a Mcneil 4 + 3 adenocarcinoma in 3 of 3 cores from a right-sided region of interest.The biggest challenge with this patient's care is substantial logistics especially with his travel and his ability to comply with visits, procedures and diagnostics. Past Hx from 12/06/22:( Patient has a history elevated PSA along with significant medical comorbidity including history of stroke, CA and abdominal aortic aneurysm repair. He is had previous prostate biopsies that have been negative. A PSA on 10/23/2022 was 17.02 with a 4K score of 92.9%. The patient underwent a prostate MRI on 11/16/2022 which showed a prostate of 50 g and PI-RADS 5 lesion in the right posterior peripheral zone at the level of the base of the gland with possible extracapsular extension this had increased from a PI-RADS 4 to a PI-RADS 5. There was also PI-RADS 3 lesions on the left side. The patient tells me that his heart is doing real good.) Jaya Kingsley MD [address] [facility], [place], [address], [place] [facility] & [place] 03/15/2023 13:30:52 03/26/2023 text/html Phone consult Telephone consultation conducted with patient today. Patient gives informed consent and 100% of consult spent counseling patient, reviewing records and implementing treatment plan. Consult begins at 4:52 p.m. and ends at 5:03 p.m.patient has a history of newly diagnosed adenocarcinoma the prostate. Chest x-ray shows COPD and bone scan shows DJD without evidence of metastatic disease. Serologies show essentially normal electrolytes, liver and renal function. CBC is unremarkable. Patient is having no sequelae related to his recent biopsies. See below for past history:{ recent pathology that was obtained from prostate biopsies done through a transperineal fused/targeted as well as a stereotactic peripheral zone saturation biopsy approach. The patient did well post biopsy but did experience rhinitis for a couple of days but no urologic issues. Pathology revealed Mcneil 3 + 4 adenocarcinoma in a right posterior lateral biopsy. Mcneil 4 + 3 in the right base biopsy and a Joesph 4 + 3 adenocarcinoma in 3 of 3 cores from a right-sided region of interest.The biggest challenge with this patient's care is substantial logistics especially with his travel and his ability to comply with visits, procedures and diagnostics.Past Hx from 12/06/22:( Patient has a history elevated PSA along with significant medical comorbidity including history of stroke, CA and abdominal aortic aneurysm repair. He is had previous prostate biopsies that have been negative. A PSA on 10/23/2022 was 17.02 with a 4K score of 92.9%. The patient underwent a prostate MRI on 11/16/2022 which showed a prostate of 50 g and PI-RADS 5 lesion in the right posterior peripheral zone at the level of the base of the gland with possible extracapsular extension this had increased from a PI-RADS 4 to a PI-RADS 5. There was also PI-RADS 3 lesions on the left side. The patient tells me that his heart is doing real good.) Jaya Kinsgley MD [address] [facility], [place], [address], [facility] - [place] - [place] [facility] [place] 03/26/2023 17:09:21
--- OUTSIDE RECORDS SUMMARY | 2025-03-27 07:30 | XMS_ITS | Continuity of Care Document ---
Author Organization [facility] Address [address] [place] [address] Phone Care Team Providers Care Wet End Operator Name Role Phone Valerio Zayas MD Primary Care Provider [phone] Encounters Date Type Department Care Team Description 02/14/2024 Travel 02/14/2024 12:24 PM EDT - 02/14/2024 3:06 PM EDT Emergency [facility] [place] [id number] Isacc Greco MD Walters, Kyle A, MD Right inguinal hernia (Primary Dx) Discharge Disposition: Home or Self Care 07/24/2022 Travel 07/24/2022 10:30 AM EST Office Visit [facility] [address] [facility] [address] [place] [address] Jeramy Calhoun PA-C Abdominal aortic aneurysm (AAA) without rupture, unspecified part (Primary Dx); S/P AAA repair; S/P aorto-bifemoral bypass surgery; Femoral artery aneurysm, right; Cigarette nicotine dependence with other nicotine-induced disorder; PAD (peripheral artery disease); Incisional hernia, without obstruction or gangrene 07/24/2022 8:19 AM EST - 07/24/2022 11:59 PM EST Hospital Encounter [facility] [address] [place], [place] [id number] Jeramy Calhoun PA-C AAA (abdominal aortic aneurysm) without rupture; S/P AAA repair Discharge Disposition: Home or Self Care 07/24/2022 8:15 AM EST - 07/24/2022 8:18 AM EST Hospital Encounter [facility] [address] [place] [address] [address] [place] [address] Jeramy Calhoun PA-C Femoral artery aneurysm, right Discharge Disposition: Home or Self Care 06/13/2022 Telephone [facility] [address] [facility] [address] [place] [address] Ricky Tomlin MD Reschedule 10/05/2021 Travel 10/05/2021 12:00 PM EST Office Visit [facility] 20 [facility] [address] [place] [address] Jeramy Calhoun PA-C AAA (abdominal aortic aneurysm) without rupture (Primary Dx); S/P AAA repair; Femoral artery aneurysm, right; Cigarette nicotine dependence with other nicotine-induced disorder 10/05/2021 9:21 AM EST - 10/05/2021 11:59 PM EST Hospital Encounter [facility] [address] [place] [address] Jeramy Calhoun PA-C PVD (peripheral vascular disease) Discharge Disposition: Home or Self Care 10/05/2021 9:21 AM EST - 10/05/2021 11:59 PM EST Hospital Encounter [facility] [address] [place] [address] Jeramy Calhoun PA-C AAA (abdominal aortic aneurysm) without rupture; S/P AAA repair Discharge Disposition: Home or Self Care 02/28/2021 Telephone [facility] [address] [place] [address] [address] [place] [address] Annel Nick RMA Orders (Patient requesting that Dr. Tomlin cancel an order for home oxygen) 02/04/2021 Travel 02/04/2021 12:00 PM EDT Office Visit [facility] 20 [facility] [address] [place] [address] Jeramy Calhoun PA-C AAA (abdominal aortic aneurysm) without rupture (Primary Dx); S/P AAA repair; PVD (peripheral vascular disease) 01/12/2021 5:31 AM EDT - 01/21/2021 4:19 PM EDT Hospital Encounter [facility] [address] [place] [address] [place] [address] Ricky Tomlin MD Abdominal aortic aneurysm (AAA) without rupture Discharge Disposition: Home or Self Care 01/14/2021 10:34 AM EDT Anesthesia Event EDG PERIOP [facility] [place] [address] Rylie Shipman MD Braxton-Brown Anyi, ROUSTABOUT HAND 01/14/2021 9:35 AM EDT - 01/14/2021 2:00 PM EDT Surgery ED[place] [address] Ricky Tomlin MD POSTOP BLEEDING CONTROL (UNSPEC) 01/12/2021 Travel 01/12/2021 8:00 AM EDT - 01/12/2021 12:30 PM EDT Surgery ED[place] [address] Ricky Tomlin MD ABDOMINAL AORTIC OR ILIAC ANEURYSM REPAIR (COVERS ENDARTERECTOMY AND RENAL BYPASS) 01/12/2021 7:58 AM EDT Anesthesia Event ED[place] [address] Polly George MD Powell, Jeanne, ROUSTABOUT HAND 12/28/2020 Travel 12/28/2020 10:09 AM EDT - 12/28/2020 11:59 PM EDT Hospital Encounter [facility] PRE-ADMIT TESTING [place] [address] Preop testing (Primary Dx); Abdominal aortic aneurysm (AAA) without rupture Discharge Disposition: Home or Self Care 12/27/2020 Travel 12/10/2020 Travel 11/29/2020 Telephone [facility] [address] [facility] [address] [place] [address] Nani Bentley RMA Procedure (open AAA with Dr. 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 11/04/2020 Telephone [facility] 20 [facility] [address] [place] [address] Nani Bentley, CHIKIS Other (request for [...] 11:59 PM EST Hospital Encounter [facility] 06/09/2001 4:31 PM EDT - 06/16/2001 11:59 PM EDT Hospital Encounter [facility] Allergies Active Allergy Reactions Criticality Noted [...] (11/29/2020): Added automatically from request for surgery [id number] Essential hypertension 11/26/2020 Moderate mixed hyperlipidemia not requiring stat in therapy 11/26/2020 Iliac artery occlusion, left 11/26/2020 Coronary artery disease invo lving zuni coronary artery of zuni heart without angina pectoris 11/26/2020 Hemorrhagic shock Coagulopathy Family History Medical History Relation Name Comments Heart Disease Brother Multiple sclerosis Sister Anesth Problems Neg Hx Relation Name Status Comments Brother Sister Social History Smoking Status as of 03/27/2025 Tobacco Use Types Packs/Day Years Used Date [...] on file Medical Devices Implanted Type Area Pets Salesperson Device Identifier Shelf Expiration Date Model / Serial / Lot Graft 18x9mm Grtx Std/Tw Trnk/Lmb 40cm Bifur Strch [facility] [id number] Implanted:Qty: 1 on 01/12/2021 by Ricky Tomlin MD at [facility] N/A: Aorta [employer] [id number] 10/11/2025 [id number] / [id number] / Procedures Procedure Name Priority Date/Time Associated [...] 10:49 AM EDTThis note is in progress. [facility] History and Physical Name: Drew Aiken : [...] aneurysm ; Surgeon: Ricky Tomlin MD; Location: [facility] MAIN OR; Service: Vascular BACK SURGERY [...] (HCC) Coagulopathy (HCC) Coronary artery disease involving zuni coronary artery of zuni heartwithout angina pectoris Essential hypertension Iliac artery [...] - TELEMETRY Routine 01/17/2021 4:36 PM EDT [facility] LOWER EXTREMITY ARTERIAL DUPLEX COMPLETE STAT [...] 12:49 PM EDT IP CONSULT TO [employer]GICAL NURSES[employer] ASSOCIATION COUNSELOR - EDG ONLY Routine 01/12/2021 12:31 PM [...] right common iliac artery, reconstitution of right zuni external iliac artery. There is some asymmetric [...] right common iliac artery, reconstitution of right zuni external iliacartery. There is some asymmetric tissue [...] - 10.3 x10(3)/mcL 02/14/2024 1:11 PM EDT [facility] RBC 5.03 4.60 - 6.10 x10(6)/mcL 02/14/2024 1:11 PM EDT [facility] Hgb 16.3 13.7 - 17.5 g/dL 02/14/2024 1:11 PM EDT [facility] Hct 49.2 40.0 - 51.0 % 02/14/2024 1:11 PM EDT [facility] MCV 97.8 80.0 - 100.0 fL 02/14/2024 1:11 PM EDT [facility] MCH 32.4 26.0 - 34.0 pg 02/14/2024 1:11 PM EDT [facility] MCHC 33.1 30.7 - 35.5 g/dL 02/14/2024 1:11 PM EDT [facility] RDW 12.5 <=14.9 % 02/14/2024 1:11 PM EDT [facility] Platelet 195 155 - 369 x10(3)/mcL 02/14/2024 1:11 PM EDT [facility] MPV 10.3 8.8 - 12.5 fL 02/14/2024 1:11 PM EDT [facility] Neut Percent 56.4 % 02/14/2024 1:11 PM EDT [facility] Comment:Neutrophils equals s egs plus bands Imm Gran% 0.2 % 02/14/2024 1:11 PM EDT [facility] Comment:Automated count of m etamyelocytes, myelocytes and promyelocytes. Lymph Percent 33.6 % 02/14/2024 1:11 PM EDT [facility] Runnels Percent 8.3 % 02/14/2024 1:11 PM EDT [facility] Eos Percent 0.9 % 02/14/2024 1:11 PM EDT [facility] Baso Percent 0.6 % 02/14/2024 1:11 PM EDT [facility] Neut # 3.1 1.6 - 6.1 x10(3)/mcL 02/14/2024 1:11 PM EDT [facility] Comment:Neutrophils equals s egs plus bands IMMGRAN# 0.0 0.0 - 0.1 x10(3)/mcL 02/14/2024 1:11 PM EDT [facility] Comment:Automated count of m etamyelocytes, myelocytes and promyelocytes. An absolute IG <0.1 is reported as 0.0. Lymph # 1.8 1.2 - 3.9 x10(3)/mcL 02/14/2024 1:11 PM EDT [facility] Runnels # 0.5 0.3 - 0.9 x10(3)/mcL 02/14/2024 1:11 PM EDT [facility] Eos# 0.1 0.0 - 0.5 x10(3)/mcL 02/14/2024 1:11 PM EDT [facility] Baso # 0.0 0.0 - 0.1 x10(3)/mcL 02/14/2024 1:11 PM EDT [facility] Blood VENOUS BLOOD / Unknown Venipuncture / Unknown 02/14/2024 1:05 PM EDT 02/14/2024 1:08 PM EDT us Neto Rosario MD HEMATOLOGY ORDERABLES Final Re sult [facility] [address] [place] [id number] * (ABNORMAL) BASIC METABOLIC PANEL (02/14/2024 1:05 PM EDT) Only the most recent of9 resultswithin the time period is included. Sodium 139 136 - 145 mmol/L 02/14/2024 1:27 PM EDT [facility] Potassium 4.2 3.5 - 5.0 mmol/L 02/14/2024 1:27 PM EDT [facility] Chloride 100 98 - 107 mmol/L 02/14/2024 1:27 PM EDT [facility] Total CO2 29 22 - 29 mmol/L 02/14/2024 1:27 PM EDT [facility] Anion Gap 10 7 - 16 mmol/L 02/14/2024 1:27 PM EDT [facility] Calcium 9.5 8.8 - 10.4 mg/dL 02/14/2024 1:27 PM EDT [facility] Glucose Lvl 101(H) 70 - 99 mg/dL 02/14/2024 1:27 PM EDT [facility] BUN 8 8 - 23 mg/dL 02/14/2024 1:27 PM EDT [facility] Creatinine 0.74 0.67 - 1.30 mg/dL 02/14/2024 1:27 PM EDT [facility] eGFR (CKD-EPIcr 2020) 97 >=60 mL/min/1.7 3 m2 02/14/2024 1:27 PM EDT [facility] Comment:Estimated GFR was ca lculated using the CKD-EPIcr (2020) equation refit without race. The equation is recommended by the National Kidney Foundation - [place] [employer] of Nephrology Task Force. Blood VENOUS BLOOD / Unknown Venipuncture / Unknown 02/14/2024 1:05 PM EDT 02/14/2024 1:08 PM EDT us Neto Rosario MD CHEMISTRY ORDERABLES Final Res ult [address] [id number] * [facility] LOWER EXTREMITY ARTERIAL DUPLEX COMPLETE (07/24/2022 [...] are patent with triphasic flow. * Present BOILER SHOP SUPERVISOR measurement: 1.52 cm x 1.58 cm. * Present POP measurement: 5.9 mm x 6.3 mm. * Previous BOILER SHOP SUPERVISOR measurement: 1.58 cm x 1.59 cm. * Previous POP measurement: 0.77 cm x 0.68 cm. * Left: * Widely patent outflow left limb of the bypass graft. * The left common femoral, superficial femoral, and popliteal arteries are patent with triphasic flow. * Present BOILER SHOP SUPERVISOR measurement: 11.3 mm x 12.0 mm. * Present POP measurement: 6.0 mm x 6.2 mm. * Right brachial: 121/87. * Right BAIT PAINTER: 146 (OLU: 1.21). * Right DPA: 145 (OLU: 1.20). * Left BAIT PAINTER: 144 (OLU: 1.19). * Left DPA: 121 (OLU: 1.00). Narrative Procedure Note Lauro Covarrubias MD - 07/24/2022 IMPRESSION Conclusions * Right: * Widely patent outflow right limb of the bypass graft. * The right common femoral, superficial femoral, and popliteal arteriesare patent with triphasic flow. * Present BOILER SHOP SUPERVISOR measurement: 1.52 cm x 1.58 cm. * Present POP measurement: 5.9 mm x 6.3 mm. * Previous BOILER SHOP SUPERVISOR measurement: 1.58 cm x 1.59 cm. * Previous POP measurement: 0.77 cm x 0.68 cm. * Left: * Widely patent outflow left limb of the bypass graft. * The left common femoral, superficial femoral, and popliteal arteriesare patent with triphasic flow. * Present BOILER SHOP SUPERVISOR measurement: 11.3 mm x 12.0 mm. * Present POP measurement: 6.0 mm x 6.2 mm. * Right brachial: 121/87. * Right BAIT PAINTER: 146 (OLU: 1.21). * Right DPA: 145 (OLU: 1.20). * Left BAIT PAINTER: 144 (OLU: 1.19). * Left DPA: 121 [...] of43 resultswithin the time period is included. [facility] Glucose Meter POC 107(H) 70 - 100 mg/dL 01/21/2021 1:45 PM EDT [facility] Sample Type Capillary 01/21/2021 1:45 PM EDT [facility] Patient Status Non-Critical Patient 01/21/2021 1:45 PM EDT [facility] Blood BLOOD SPECIMEN / Unknown 01/21/2021 1:44 PM EDT 01/21/2021 1:45 PM EDT Ricky Tomlin MD POINT OF CARE TEST ORDERABLES Final Result [facility] [address] [place] [address] * EC ECHOCARDIOGRAM COMPLETE W DOPPLER AND COLOR FLOW MAPPING (01/21/2021 11:35 AM EDT) [facility] Ejection Fraction 50-55 % [place] Anatomical Region [...] resultswithin the time period is included. Pathologist [facility] ECG INTERPRET NSR [facility] 01/21/2021 7:04 AM EDT Narrative [facility] - 01/21/2021 9:06 AM EDT VM/HICUITY/ROUTINE [place] 0.14 QRS 0.12 QT 0.43 See Clinical Report link for waveform capture us Unknown Provider POINT OF CARE CARDIOLOGY Final Result [facility] [address] [place] [address] * (ABNORMAL) COMPREHENSIVE METABOLIC PANEL (01/21/2021 5:48 AM EDT) Only the most recent of7 resultswithin the time period is included. Pathologist [facility] Sodium 136 136 - 145 mmol/L 01/21/2021 [...] 01/21/2021 6:51 AM EDT [facility] Albumin 2.9(L) 3.2 - 4.6 gm/dL 01/21/2021 6:51 AM EDT [facility] Total Protein 4.9(L) 6.4 - 8.3 gm/dL 01/21/2021 6:51 AM EDT [facility] Bili Total 0.8 0.1 - 1.4 mg/dL 01/21/2021 6:51 AM EDT [facility] ALT 28 <=41 U/L 01/21/2021 6:51 AM EDT [facility] AST 35 <=40 U/L 01/21/2021 6:51 AM EDT [facility] Alk Phos 104 40 - 129 U/L 01/21/2021 6:51 AM EDT [facility] GFR Afr Am 102 >=60 mL/min/1.7 3 m2 01/21/2021 6:51 AM EDT [facility] GFR Non Afr Am 88 >=60 mL/min/1.7 3 m2 01/21/2021 6:51 AM EDT [facility] Comment: This estimated GFR was calculated [...] ORDERABLES Final Re sult [facility] [address] [facility], [place] [address] [facility] [address] [place] [id number] * PLATELET COUNT (01/20/2021 8:01 AM EDT) Only the most recent of2 resultswithin the time period is included. Platelet 257 155 - 369 x10(3)/mcL 01/20/2021 9:15 AM EDT [facility] MPV 11.2 8.8 - 12.5 fL 01/20/2021 9:15 AM EDT [facility] Blood VENOUS BLOOD / Unknown Venipuncture / Unknown 01/20/2021 8:01 AM EDT 01/20/2021 8:34 AM EDT us Ricky Tomlin MD HEMATOLOGY ORDERABLES Final R esult [facility] [address] [facility], [place] [address] * XR CHEST PA AND LATERAL (01/19/2021 [...] (ABNORMAL) NT PROBNP (01/19/2021 5:28 AM EDT) [facility] NT Pro-BNP 455(H) <=229 pg/mL 01/20/2021 7:43 AM EDT [facility] Blood VENOUS BLOOD / Unknown Venipuncture / Unknown 01/19/2021 5:28 AM EDT 01/19/2021 6:00 AM EDT Narrative [facility] - 01/20/2021 7:43 AM EDT An NT pro-BNP level less than 300 pg/mL in any patient, regardless of age, effectively rules out acute CHF with a 99% negative predictive value. us Apollo Lopez DO CHEMISTRY ORDERABLES Final R esult [facility] [address] [place] [address] , [address] [place] [id number] * (ABNORMAL) CBC (01/15/2021 4:57 AM EDT) Only the most recent of11 resultswithin the time period is included. [facility] WBC 9.2 3.7 - 10.3 x10(3)/mcL 01/15/2021 5:23 AM EDT [facility] RBC 2.88(L) 4.60 - 6.10 x10(6)/mcL 01/15/2021 5:23 AM EDT [facility] Hgb 9.3(L) 13.7 - 17.5 g/dL 01/15/2021 5:23 AM EDT [facility] Hct 27.8(L) 40.0 - 51.0 % 01/15/2021 5:23 AM EDT [facility] MCV 96.5 80.0 - 100.0 fL 01/15/2021 5:23 AM EDT [facility] MCH 32.3 26.0 - 34.0 pg 01/15/2021 5:23 AM EDT [facility] MCHC 33.5 30.7 - 35.5 g/dL 01/15/2021 5:23 AM EDT [facility] RDW 15.4(H) <=14.9 % 01/15/2021 5:23 AM EDT [facility] Platelet 89(L) 155 - 369 x10(3)/mcL 01/15/2021 5:23 AM EDT [facility] MPV 11.1 8.8 - 12.5 fL 01/15/2021 5:23 AM EDT [facility] Blood VENOUS BLOOD / Unknown Venipuncture / Unknown 01/15/2021 4:57 AM EDT 01/15/2021 5:01 AM EDT Jeramy Collins APRN HEMATOLOGY ORDERABLES Final Re sult Performing Organization Address [facility]/State/ZIP Co de Phone Number [facility], [facility] [address] [facility] , [place] [address] * IONIZED CALCIUM - INPATIENT (01/14/2021 12:13 PM EDT) Only the most recent of6 resultswithin the time period is included. Calcium Ionized 1.21 1.12 - 1.32 mmol/L 01/14/2021 12:36 PM EDT [facility] Blood ARTERIAL BLOOD / Unknown Venipuncture / Unknown 01/14/2021 12:13 PM EDT 01/14/2021 12:28 PM EDT Todd Robles MD CHEMISTRY ORDERABLES Final Re sult Performing Organization Address City/[facility] Co de Phone Number [facility] [address] [facility], [place] [address] * INTRAOP AIRWAY PLACEMENT (01/14/2021 11:18 AM EDT) Narrative [facility] - 01/14/2021 11:18 AM EDT Natalio [...] attempts: 1 Attempt 1 by: Yadiel Title: RFP WRITER us Rylie Shipman MD [place] ANESTHESIA Final Result Performing Organization Address [facility] de Phone Number [address] [address] * XR CHEST AP PORTABLE (01/14/2021 10:04 [...] please contactthe office of the ordering clinician. Christianne Petty APRN IMG DIAGNOSTIC IMAGING ORDER DIAMOND Final Result * TEG HEMOSTASIS LAB PERFORMED (01/14/2021 8:20 AM EDT) Only the most recent of7 resultswithin the time period is included. Blood ARTERIAL BLOOD / Unknown Venipuncture / Unknown 01/14/2021 8:20 AM EDT 01/14/2021 8:25 AM EDT Christianne Petty APRN HEMATOLOGY ORDERABLES Final Result [facility] [employer] [address] [facility] , [place] [address] * TEG GLOBAL HEMOSTASIS (01/14/2021 7:37 AM EDT) Only the most recent of7 resultswithin the time period is included. TEG Functional Fibrinogen - MA 17.9 15 - 32 mm [facility] TEG Functional Fibrinogen - FLEV 326.6 278 - 581 mg/dL [facility] TEG Rapid - MA 57.3 52 - 70 mm [facility] TEG Kaolin w Heparinase - R 4.4 4.3 - 8.3 min [facility] Comment:Units Converted from sec to min -- Original: Value = 264 ; Units = sec ; Ref Range = 258-498 TEG [employer] - Angle 73.5 63 - 78 deg [facility] TEG [employer] - K 1.4 0.8 - 2.1 min [facility] Comment:Units Converted from sec to min -- Original: Value = 84 ; Units = sec ; Ref Range = 48-126 TEG Kaolin - MA 58.7 52 - 69 mm [facility] TEG Kaolin - R 4.7 4.6 - 9.1 min [facility] Comment:Units Converted from sec to min -- Original: Value = 282 ; Units = sec ; Ref Range = 276-546 01/14/2021 7:37 AM EDT Narrative [facility] - 01/14/2021 9:05 AM EDT Test Notes: CFF Calc=Fibrin; Cartridge Lot#[id number] Christianne Petty APRN HEMATOLOGY ORDERABLES Final Result Performing Organization Address City/[facility] de Phone Number [facility] [address] [place] [address] * (ABNORMAL) HEMOGLOBIN AND HEMATOCRIT (01/14/2021 6:03 AM EDT) Only the most recent of2 resultswithin the time period is included. Hgb 8.8(L) 13.7 - 17.5 g/dL 01/14/2021 6:13 AM EDT [facility] [employer] Hct 25.3(L) 40.0 - 51.0 % 01/14/2021 6:13 AM EDT [facility] [employer] [employer] Blood ARTERIAL BLOOD / Unknown Venipuncture / Unknown 01/14/2021 6:03 AM EDT 01/14/2021 6:07 AM EDT Todd Robles MD HEMATOLOGY ORDERABLES Final R esult [facility] [employer] [employer] [address] [facility], [place] [address] * TRANSFUSE RED BLOOD CELLS (01/14/2021 1:54 AM EDT) Only the most recent of3 resultswithin the time period is included. us Todd Robles MD NURSING TREATMENT ORDERABLES - BLOOD ADMIN Final Result * PHOSPHORUS LEVEL (01/13/2021 10:14 PM EDT) Only the most recent of4 resultswithin the time period is included. Phosphorus 3.9 2.5 - 4.5 mg/dL 01/13/2021 10:45 PM EDT [facility] Blood VENOUS BLOOD / Unknown Venipuncture / Unknown 01/13/2021 10:14 PM EDT 01/13/2021 10:17 PM EDT us Todd Robles MD CHEMISTRY ORDERABLES Final Re sult Performing Organization Address [facility] [place] [address] * MAGNESIUM LEVEL (01/13/2021 10:14 PM EDT) Only the most recent of4 resultswithin the time period is included. Pathologist [facility] Magnesium 1.8 1.6 - 2.4 mg/dL 01/13/2021 10:45 PM EDT [facility] Blood VENOUS BLOOD / Unknown Venipuncture / Unknown 01/13/2021 10:14 PM EDT 01/13/2021 10:17 PM EDT us Todd Robles MD CHEMISTRY ORDERABLES Final Re sult Performing Organization Address [facility] [place] [address] * LACTIC ACID (01/13/2021 10:14 PM EDT) Only the most recent of5 resultswithin the time period is included. Lactic Acid 1.7 0.5 - 1.9 mmol/L 01/13/2021 10:31 PM EDT [facility] Blood VENOUS BLOOD / Unknown Venipuncture / Unknown 01/13/2021 10:14 PM EDT 01/13/2021 10:17 PM EDT Todd Robles MD CHEMISTRY ORDERABLES Final Re sult Performing Organization Address City/[facility]/ZIP Co de Phone Number [facility] [address] [place] [address] * (ABNORMAL) BLOOD GAS ARTERIAL (01/13/2021 9:26 [...] Re sult [facility] [address] [facility], [address] [place] [id number] * REPEAT LACTIC ACID (01/13/2021 8:44 AM EDT) Only the most recent of5 resultswithin the time period is included. Lactic Acid 1.4 0.5 - 1.9 mmol/L 01/13/2021 9:15 AM EDT [facility] Blood ARTERIAL BLOOD / Unknown Venipuncture / Unknown 01/13/2021 8:44 AM EDT 01/13/2021 9:06 AM EDT us Luke A Linz DO CHEMISTRY ORDERABLES Final Resul t Performing Organization Address [facility] [place] [address] * FFP/PLASMA REQUEST (01/13/2021 2:35 AM EDT) Product Code [id number] [facility] [facility] Unit Number [id number] [facility] Dispense Status TRANSFUSED [facility] Blood Expiration Date [facility] ISBT 128 Type 6200 [facility] BLOOD BANK BA CODING SYSTEM [id number] [facility] Blood Type (Unit) A POS [facility] Product Code [id number] [facility]OD [facility] Unit Number [id number] [facility] Dispense Status TRANSFUSED [facility] Blood Expiration Date [facility] ISBT 128 Type 0600 [facility] BLOOD BANK BA CODING SYSTEM [id number] [facility] Blood Type (Unit) A NEG [facility] Blood 01/13/2021 2:35 AM EDT us Luke A Linz DO BLOOD PRODUCT ORDERS Final Resul t Performing Organization Address City/[facility] Co de Phone Number [facility] [place] [address] * CRYOPRECIPITATE REQUEST (01/13/2021 2:35 AM EDT) Product Code [id number] [facility] Unit Number [id number] [facility] Dispense Status TRANSFUSED [facility] Blood Expiration Date [id number] [facility] ISBT 128 Type 6200 [facility] BLOOD BANK BA CODING SYSTEM [id number] [facility] BLOOD [facility] Blood Type (Unit) A POS [facility] Blood 01/13/2021 2:35 AM EDT Christianne Petty APRN BLOOD PRODUCT ORDERS Final R esult [facility] [address] [place] [address] * TRANSFUSE FRESH FROZEN PLASMA (01/12/2021 6:08 [...] ActF MA 2.2 2 - 19 mm [facility] TEG PM - HKH MA 53.8 53 - 68 mm [facility] TEG PM - MA ADP 19.2(A) 45 - 69 mm [facility] TEG PM - Pct Aggregation ADP 32.9(A) 83 - 100 % [facility] TEG PM - Pct Inhibition ADP 67.1(A) 0 - 17 % [facility] 01/12/2021 12:5 8 PM EDT Narrative [facility] - 01/12/2021 2:50 PM EDT Test Notes: ActF Calc=Fibrin; HKH Calc=Thrombin; ADP Calc=ADP; Cartridge Lot#=[id number] us Jovi A Avi DO HEMATOLOGY ORDERABLES Final Resu lt Performing Organization Address City/[facility]/ZIP Co de Phone Number [facility] [address] [place] [address] * TEG PLATELET MAPPING LAB PERFORMED (01/12/2021 12:49 PM EDT) Blood BLOOD SAMPLE TAKEN FROM CENTRAL LINE / Unknown Venipuncture / Unknown 01/12/2021 12:49 PM EDT 01/12/2021 12:55 PM EDT us Luemily A Avi DO HEMATOLOGY ORDERABLES Final Resu lt Performing Organization Address City/[facility]/ZIP Co de Phone Number [facility] I Had Cancer [address] [facility], [place] [address] * Peripheral Block by Anesthesia (01/12/2021 12:10 PM EDT) Narrative [facility] - 01/12/2021 12:10 PM EDT Polly [...] Polly George MD ANESTHESIA ORDERABLES Final Result [facility] [address] [place], [place] [id number] * (ABNORMAL) POCT ISTAT CG8 ARTERIAL (01/12/2021 11:41 AM EDT) Only the most recent of3 resultswithin the time period is included. Pathologist [facility] Sodium-iSTAT 142 135 - 143 mmol/L 01/12/2021 11:45 AM EDT [facility] Potassium-iSTA T 3.9 3.5 - 5.0 mmol/L 01/12/2021 11:45 AM EDT [facility] iCA-iSTAT 1.30 1.12 - 1.32 mmol/L 01/12/2021 11:45 AM EDT [facility] Glucose-iSTAT 173(H) 70 - 105 mg/dL 01/12/2021 11:45 AM EDT [facility] Base Exc-iSTAT 0 -2 - 3 mmol/L 01/12/2021 11:45 AM EDT [facility] Hgb-iSTAT 10.2(L) 13.0 - 17.0 gm/dL 01/12/2021 11:45 AM EDT [facility] Hct-iSTAT 30(L) 40 - 52 % 01/12/2021 11:45 AM EDT [facility] pH iSTAT Art 7.304(L) 7.350 - 7.450 01/12/2021 11:45 AM EDT [facility] pCO2 iSTAT Art 54(H) 35 - 45 mmHg 01/12/2021 11:45 AM EDT [facility] pO2 iSTAT Art 109(H) 80 - 105 mmHg 01/12/2021 11:45 AM EDT [facility] Hco ISTAT Art Cg8 27(H) 22 - 26 mmol/L 01/12/2021 11:45 AM EDT [facility] TCO2 iSTAT Art 28(H) 23 - 27 mmol/L 01/12/2021 11:45 AM EDT [facility] O2 Sat iSTAT Art 98 95 - 98 % 01/12/2021 11:45 AM EDT [facility] Inspired O2-iSTAT 60.00 % 01/12/2021 11:45 AM EDT [facility] CPB Applied. No 01/12/2021 11:45 AM EDT [facility] Blood ARTERIAL BLOOD / Unknown 01/12/2021 11:41 AM EDT 01/12/2021 11:45 AM EDT Ricky Tomlin MD POINT OF CARE TEST ORDERABLES Final Result Performing Organization Address [facility] [place] [address] * INTRAOP AIRWAY PLACEMENT (01/12/2021 8:51 AM EDT) Narrative [facility] - 01/12/2021 8:51 AM EDT Neema [...] 1 Attempt 1 by: Naveen Mendez Title: RFP WRITER us Polly George MD [place] ANESTHESIA Final Result Performing Organization Address [facility] [place] [address] * ANE ARTERIAL LINE PLACEMENT (01/12/2021 7:50 AM EDT) Narrative [facility] - 01/12/2021 7:50 AM EDT Polly [...] ANESTHESIA ORDERABLES Final Result Performing Organization Address City/State/[facility] Co de Phone Number [facility] [address] [place] [phone] * ANE INTRODUCER PLACEMENT (01/12/2021 7:49 AM EDT) Narrative [facility] - 01/12/2021 7:49 AM EDT Polly [...] Ultrasound guided and Surface landmarks Anesthesiologist: Polly Georeg MD Placed By: Anesthesiologist Sterility prep: Provider [...] ANESTHESIA ORDERABLES Final Result Performing Organization Address [facility] Co de Phone Number [facility] [address] [place] [address] * BB HISTORY CHECK (01/12/2021 6:10 AM EDT) Only the most recent of2 resultswithin the time period is included. BB HISTORY CHECK (1) Previous History OK 01/12/2021 6:19 AM EDT [facility] Blood VENOUS BLOOD / Unknown Venipuncture / Unknown 01/12/2021 6:10 AM EDT 01/12/2021 6:18 AM EDT us Ricky Tomlin MD BLOOD BANK ORDERABLES Final R esult Performing Organization Address [facility] Co de Phone Number [facility]LOOD [address] [address] * ABORH (01/12/2021 6:10 AM EDT) Only the most recent of2 resultswithin the time period is included. Pathologist [facility] ABORH Int A POS 01/12/2021 6:5 6 AM EDT [facility] BLOOD [facility] Blood VENOUS BLOOD / Unknown Venipuncture / Unknown 01/12/2021 6:10 AM EDT 01/12/2021 6:18 AM EDT us Ricky Tomlin MD BLOOD BANK ORDERABLES Final R esult Performing Organization Address [facility] Co de Phone Number [facility]LO[facility] [address] [address] * SCANNED EKG (01/11/2021 10:07 AM EDT) Anatomical Region Laterality Modality Other 01/11/2021 10:0 7 AM EDT us Unknown Unknown IMG ECG ORDERABLES Final Result * RED BLOOD CELLS REQUEST (12/28/2020 11:16 AM EDT) Only the most recent of3 resultswithin the time period is included. Product Code [id number] [facility] BLOOD BANK Unit Number [id number] [facility] Crossmatch Interp Compatible [facility] B[facility] Dispense Status RETURNED [facility] BLOOD [facility] Blood Expiration Date [facility] ISBT 128 Type 6200 [facility] BLOOD [facility] BA CODING SYSTEM [id number] [facility] Blood Type (Unit) A POS [facility]OD [facility] Product Code [id number] [facility]LOOD [facility] Unit Number [id number] [facility]OD [facility] Crossmatch Interp Compatible [facility]LOOD BANK Dispense Status RETURNED [facility] BLOOD [facility] Blood Expiration Date [facility]LOOD BANK ISBT 128 Type 6200 [facility] BLOOD BANK BA CODING SYSTEM [id number] [facility]OD [facility] Blood Type (Unit) A POS [facility]LOOD [facility] Product Code [id number] [facility]LOOD [facility] Unit Number [id number] [facility]OD [facility] Crossmatch Interp Compatible [facility] BLOOD BANK Dispense Status RETURNED [facility] BLOOD [facility] Blood Expiration Date [facility] BLOOD BANK ISBT 128 Type 6200 [facility] BLOOD BANK BA CODING SYSTEM [id number] [facility]LOOD [facility] Blood Type (Unit) A POS [facility]LOOD [facility] Product Code [id number] [facility] BLOOD [facility] Unit Number [id number] [facility]LOOD BANK Crossmatch Interp Compatible [facility] BLOOD BANK Dispense Status RETURNED [facility] BLOOD [facility] Blood Expiration Date [facility] BLO[facility] BANK ISBT 128 Type 6200 [facility] BLOOD [facility] BA CODING SYSTEM [id number] [facility] Blood Type (Unit) A POS [facility] Blood 12/28/2020 11:1 6 AM EDT 12/28/2020 11:20 AM EDT us Ricky Tomlin MD BLOOD PRODUCT ORDERS Final Re sult Performing Organization Address [facility] Co de Phone Number [address] [address] * SURGERY DATE (12/28/2020 11:16 AM EDT) Surgery Date (1) Complete 12/28/2020 11:38 AM EDT [facility]LOOD [facility] Blood VENOUS BLOOD / Unknown Venipuncture / Unknown 12/28/2020 11:16 AM EDT 12/28/2020 11:19 AM EDT Berenice Perez APRN BLOOD BANK ORDERABLES Final R esult Performing Organization Address [facility] Co de Phone Number [address] [address] * ANTIBODY SCREEN IGG (12/28/2020 11:16 AM EDT) ABSC IgG Int Negative 12/28/2020 1:08 PM EDT [facility] BLOOD 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
--- NOTE | 2025-03-27 08:00 | CT_ITS ---
FINAL REPORT TECHNIQUE: Axial CT of the abdomen and pelvis, without and with IV contrast. This study was performed with techniques to keep radiation doses as low as reasonably achievable, (ALARA). Individualized dose reduction techniques using automated exposure control or adjustment of mA and/or kV according to the patient''s size were employed. CLINICAL HISTORY: Renal Mass COMPARISON: 02/04/2024 FINDINGS: Abdomen: Hyperdense lesion in the posterior upper pole of the left kidney measures 8 mm and is unchanged. On precontrast images, this measures 62 Hounsfield units without definite enhancement. The appearance is most compatible with a complex cyst. Other bilateral simple renal cysts are stable. The largest is in the anterior left mid kidney and measures 19 mm. There is a small cyst in the anterior liver. Remaining solid organs are normal. The patient is status post cholecystectomy. There is an abdominal aortic aneurysm with prior aortic bypass. 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 Pelvis: There is no pelvic mass or adenopathy. The urinary bladder is unremarkable. Iliac bypass graft is widely patent. Mild prostate enlargement is noted. IMPRESSION: Stable renal lesions consistent with cysts with lesion of interest in the upper pole of the left kidney compatible with a complex cyst. Stable abdominal aortic aneurysm at the level of the renal arteries with aortoiliac bypass widely patent. Reviewed, Interpreted and Dictated by Austin Rosas MD Transcribed by Akosua Sweet Authenticated and [facility]
[2025-03-27] MEDS: SODIUM CHLORIDE 0.9% 10ML SYR (RAD ONLY) 10 ML IV (08:01)
[2025-03-27] MEDS: IOPAMIDOL-370 (76%);100ML BOTTLE 75 ML IV (08:01)
== END 2025-03-27 23:59 | disposition home or self-care (01) ==
LOC: RAD 07:28
PROVIDERS: PCP Family Medicine; Visit Provider Family Medicine
DX: C61 Malignant neoplasm of prostate (principal); I71.41 Pararenal abdominal aortic aneurysm, without rupture; D71 Functional disorders of polymorphonuclear neutrophils; N28.9 Disorder of kidney and ureter, unspecified; R91.8 Other nonspecific abnormal finding of lung field; J44.9 Chronic obstructive pulmonary disease, unspecified; Z87.891 Personal history of nicotine dependence
CPT/HCPCS: 71271; 74178; 80053; 80061; 84443; 85025; G0103; Q9967